=== PATIENT | female | born 1960 | race Two or more races ===

== ENCOUNTER 2024-07-19 13:02 | Inpatient (IN) | payer MEDICARE, OTHER, SELFPAY ==
[2024-07-19] VITALS (9 sets, daily range): BP systolic 120–201; BP diastolic 63–166; PULSE 83–103; RESP 18–91; TEMP 36.1–36.9; O2SAT 93–96; BMI 25.7
--- NOTE | 2024-07-19 13:07 | EKG_ITS ---
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
--- NOTE | 2024-07-19 13:42 | XR_ITS ---
Examination: PA lateral chest 2 views TECHNIQUE: Upright PA lateral chest 2 views Exam date and time: July 19, 2024 1356 hours INDICATIONS: Chest pain beginning 2 days ago, history myocardial infarction FINDINGS: Moderate chronic heart failure pattern Mild to moderate enlargement cardiac contour Prominent vascular congestion with perihilar basilar edema Large bilateral pleural effusions Intact osseous structures IMPRESSION: Moderate chronic heart failure pattern
--- NOTE | 2024-07-19 13:42 | PD.EDRME ---
Rapid Medical Screening Exam RME Arrival date/time: 07/19/24 13:02 64-year-old female with recent cardiac stent placement presents emergency department complaints of bilateral lower extremity swelling and shortness of breath Chief Complaint: Chest Pain Time Seen by Provider: 07/19/24 13:10 Vital signs: Vital Signs Temperature 97.5 F 07/19/24 13:18 Pulse Rate 97 07/19/24 13:18 Respiratory Rate 18 07/19/24 13:18 Blood Pressure 146/73 H 07/19/24 13:18 Pulse Oximetry (%) 93 L 07/19/24 13:18 Oxygen Delivery Method Room Air 07/19/24 13:18
[2024-07-19 14:07] LABS: Basophils # (Auto) 0.1 Thou/mm3 (0.0-0.2); Basophils % (Auto) 1 % (0-2.5); Eosinophils # (Auto) 0.2 Thou/mm3 (0.0-0.5); Eosinophils % (Auto) 2 % (0-10); Hematocrit 32.5 % (36.0-46.0); Hemoglobin 10.2 g/dL (12.0-16.0); Immature Granulocytes % (Auto) 0 % (0-0); Immature Granulocytes Auto 0.03 Thou/mm3 (0.00-0.00); Lymphocytes # (Auto) 1.5 Thou/mm3 (1.0-4.8); Lymphocytes % (Auto) 18 % (10-50); Mean Corpuscular HGB Conc 31.4 g/dl (31.0-37.0); Mean Corpuscular Hemoglobin 26.8 pg (25.0-35.0); Mean Corpuscular Volume 85 fL (80-100); Monocytes # (Auto) 0.6 Thou/mm3 (0.0-0.8); Monocytes % (Auto) 7 % (0-12); Neutrophils # (Auto) 6.1 Thou/mm3 (1.8-7.7); Neutrophils % (Auto) 72 % (37-80); Nucleated Red Blood Cell % 0 /100 WBC (0); Platelet Count 351 Thou/mm3 (140-440); RDW Standard Deviation 43.8 fL (36.4-46.3); Red Blood Count 3.81 Miln/mm3 (4.00-5.20); White Blood Count 8.6 Thou/mm3 (3.6-11.0)
[2024-07-19 14:20] LABS: INR 1.2 (0.9-1.3); Partial Thromboplastin Time 25.1 Seconds (22.0-36.0); Prothrombin Time 12.7 Seconds (9.0-12.2)
[2024-07-19 14:23] LABS: B-Type Natriuretic Peptide 2188 pg/mL (0-100)
[2024-07-19 14:27] LABS: Alanine Aminotransferase 37 U/L (10-49); Albumin, Serum 3.7 gm/dL (3.4-4.8); Albumin/Globulin Ratio 1.2 (1.2-2.2); Alkaline Phosphatase 179 U/L (46-116); Anion Gap 7 (7-16); Aspartate Amino Transferase 28 U/L (0-34); BUN/Creatinine Ratio 28 Ratio (12-20); Bilirubin,Total 0.4 mg/dL (0.3-1.2); Blood Urea Nitrogen 34 mg/dL (9-23); Calcium 9.5 mg/dL (8.3-10.6); Calcium (Corrected) 9.7 mg/dL (8.5-10.1); Carbon Dioxide 25.6 mMol/L (20.0-31.0); Chloride 108 mMol/L (98-107); Creatinine (Component) 1.2 mg/dL (0.6-1.3); Estimated Creatinine Clearance 35.7 mL/min (>60); Glucose 190 mg/dL (74-106); Magnesium 1.8 mg/dL (1.6-2.6); Osmolality,Calculated 293 (275-295); Potassium 4.6 mMol/L (3.4-5.1); Sodium 141 mMol/L (136-145); Total Protein 6.7 gm/dL (5.7-8.2); eGFR 50 See Note
[2024-07-19 14:31] LABS: Troponin I 0.445 ng/mL (0.0-0.045)
--- NOTE | 2024-07-19 15:04 | PD.EDADULT ---
ED General RME/HPI General Chief complaint: Chest Pain Stated complaint: CHEST PRESSURE AND BILAT FEET SWELLING Time Seen by Provider: 07/19/24 13:10 Arrival date/time: 07/19/24 13:02 CC: Chest pain lower extremity swelling HPI patient presents the ER via EMS with a family member states the patient had chest pain this morning lasting for approximately 4 to 5 hours and upon standing is resolution. The patient also has lower foot swelling. Family member presented paperwork that shows the patient had an acute STEMI and was catheterized on July 08, [address] Dennis cardiology in [place]. Currently the patient is chest pain-free family member reminds me the patient has had several strokes also is on blood thinners, and has poor memory. She is answering all of the questions for the patient without asking the patient questions. RME / HPI RME / HPI narrative: 07/19/24 13:02 64-year-old female with recent cardiac stent placement presents emergency department complaints of bilateral lower extremity swelling and shortness of breath Related Data Home Medications ?Medication ?Instructions ?Recorded ?Confirmed aspirin 81 mg chewable tablet 81 mg PO QDAY 07/19/24 07/19/24 atorvastatin 40 mg tablet 40 mg PO QDAY 07/19/24 07/19/24 doxycycline hyclate 100 mg capsule 100 mg PO BID 07/19/24 07/19/24 isosorbide mononitrate 30 mg 30 mg PO QDAY 07/19/24 07/19/24 tablet,extended release 24 hr metoprolol succinate 25 mg 12.5 mg PO QDAY 07/19/24 07/19/24 tablet,extended release 24 hr ticagrelor 90 mg tablet (Brilinta) 90 mg PO BID 07/19/24 07/19/24 Allergies Allergy/AdvReac Type Severity Reaction Status Date / Time No Known Allergies Allergy Verified 07/19/24 13:04 Review of Systems Review of Systems Narrative Review of Systems: GEN: No fever, no chills, no weight loss EYES: No discharge, no visual changes, no pain HEENT: No ear pain, no congestion, no sore throat PULM: No shortness of breath, no cough, no congestion CV: No chest pain, no dyspnea on exertion, no palpitations GI: No nausea, no vomiting, no diarrhea, no pain, no constipation : No frequency, no urgency, no dysuria MUSC/SKEL: No joint pain, no back pain SKIN: No rash PSYCH: No hallucinations, no depression HEME/LYMPH: No easy bleeding or bruising tendencies NEURO: No weakness, no headache Past Medical History Past Medical History CARDIAC: Positive Congestive Heart Failure RESPIRATORY: Negative Chronic Obstructive Pulmonary Disease (COPD) GENITOURINARY: Negative Renal Disease ENDOCRINE: Positive Diabetes Mellitus Type 2; Negative Diabetes Mellitus Type 1 Social History SMOKING STATUS: Never smoker ED Exam Narrative Physical exam: [General: Not in any acute distress Head normocephalic HEENT: Within acceptable limits Neck is supple nontender Chest equal chest rise nontender to palpation Respiratory: Clear to auscultation no wheezes crackles or rubs CV: Rate rhythm is regular no murmurs rubs or clicks Abdomen is soft nontender no masses positive bowel sounds all 4 quadrants Back: No CVA tenderness no spinous process tenderness from cervical spine thoracic and lumbar spine Skin: Intact no petechiae rash induration ulceration or crepitus Extremities: Moving all extremity against resistance cap refill less than 2 seconds neurosensory intact, nonpitting edema in both lower extremities. Neuro: Awake alert oriented x 1, person, Glascow coma 15 no focal deficits] Course Course Course Narrative: Discussed the case with Dr. Britt, cardiology states that patient warrants overnight observation. Patient's case was discussed with Dr. Enmanuel Patino resident for Dr. Bray attending who agrees to accept the patient for admission. Reassessment of the patient at 1700 the patient is experiencing recurrence of chest pain. Quality Measures VTE prophylaxis Orders Category Date Time Status EKG (ED ONLY) *Do not use* NOW Care 07/19/24 13:07 Completed EKG (ED ONLY) *Do not use* NOW Care 07/19/24 17:03 Completed Ballesteros [Urinary Catheter] QS Care 07/19/24 15:13 Active Consult to Cardiology Stat Cons 07/19/24 16:58 Ordered EKG (ED Only) Stat Exams 07/19/24 13:07 Draft EKG (ED Only) Stat Exams 07/19/24 17:03 Draft XR chest 2V Stat Exams 07/19/24 13:42 Completed B-Type Natriuretic Peptide Stat Lab 07/19/24 13:52 Completed CBC Stat Lab 07/19/24 13:52 Completed Comprehensive Metabolic Panel Stat Lab 07/19/24 13:52 Completed Magnesium Stat Lab 07/19/24 13:52 Completed Partial Thromboplastin Time Stat Lab 07/19/24 13:52 Completed Prothrombin Time with INR Stat Lab 07/19/24 13:52 Completed Troponin I Stat Lab 07/19/24 13:52 Completed Troponin I Stat Lab 07/19/24 15:55 Completed Aspirin Chew Med 07/19/24 14:56 Discontinued 324 mg PO X1 ONE Furosemide [Lasix Inj] Med 07/19/24 15:11 Discontinued 20 mg IVP X1 ONE Morphine Inj Med 07/19/24 17:03 Discontinued 4 mg IVP X1 ONE Nitroglycerin [Nitro-dur Patch] Med 07/19/24 17:24 Discontinued 0.4 mg TOP X1 ONE Nitroglycerin [Nitro-dur Patch] Med 07/19/24 17:44 Discontinued 0.4 mg TOP X1 ONE Nitroglycerin [Nitro-dur Patch] Med 07/19/24 17:47 Discontinued 0.4 mg TOP X1 ONE Ondansetron Inj [Zofran Inj] Med 07/19/24 17:03 Discontinued 4 mg IV X1 ONE hydrALAZINE INJ [Apresoline Inj] Med 07/19/24 16:47 Discontinued 10 mg IV X1 ONE Vital Signs Vital signs: Vital Signs Temperature 97.5 F 07/19/24 13:18 Pulse Rate 97 07/19/24 13:18 Respiratory Rate 18 07/19/24 13:18 Blood Pressure 146/73 H 07/19/24 13:18 Pulse Oximetry (%) 93 L 07/19/24 13:18 Oxygen Delivery Method Room Air 07/19/24 13:18 [facility] Patient data External records reviewed:: [facility] previous records and EMS form Clinical information provided by:: patient and EMS Social determinants that could affect healthcare access:: none Patient has the following chronic illnesses:: STEMI with recent stent placement June 2024 How is presenting disease/condition affected by chronic disease/condition?: uneffected by Evaluation data The following diagnostics were reviewed and interpreted by me:: lab results, radiology exam(s) and EKG tracing(s) Lab and/or radiology exams considered but not ordered:: EKG performed at 1317 shows a ventricular rate of 96 TN interval 140 QRS of 104 QTc of 382 this sinus rhythm nonspecific ST segment changes no old EKG for comparison. CBC shows no leukocytosis a mild anemia of 10 and 32 with no thrombocytopenia old lab work to compare to The coags shows an INR of 1.2 CMP shows a sodium 141 potassium of 4.6 chloride of 108 CO2 of 25.6 BUN of 34 creatinine 1.2 and glucose of 190. EKG performed at 1731 shows a ventricular rate of 95 TN interval 132 QRS of 108 QTc of 413 sinus rhythm left axis deviation no significant change from the EKG performed 4 hours ago. Interpretation Summary: I suspect this patient has mild fluid overload but is intravascularly dry. The elevated troponin is most likely downtrending for the stent placement NSTEMI the patient had on July 08. Medications Medications considered but not ordered:: None Medication administrations:: Medication Administration History Acetaminophen (Acetaminophen 325 Mg Tablet) 650 mg PO Q6H PRN PRN Reason: Fever >101.5 Stop: 08/18/24 18:05 Hydrocodone Bitart/Acetaminophen (Hydrocodone/Apap 5/325 Tablet) 1 tab PO Q4HR PRN PRN Reason: PAIN SCALE 4-10(Mod-Sev Stop: 07/24/24 18:05 Last Admin: 07/19/24 19:53 Dose: 1 tab Documented By: EE Albuterol/Ipratropium (Albuterol/Ipratropium (Duoneb) Rt Jessica 3 Ml Nebu) 3 ml INH Q4HR PRN PRN Reason: Wheeze Stop: 08/18/24 18:05 Aspirin (Aspirin Ec 81 Mg Tabec) 81 mg PO QDAY MAXIME Stop: 08/18/24 18:29 Last Admin: 07/19/24 19:00 Dose: Not Given Documented By: CS Non-Admin Reason: PT TOOK DOSE AT HOME THIS AM Atorvastatin Calcium (Atorvastatin Calcium 20 Mg Tablet) 40 mg PO HS MAXIME Stop: 08/18/24 20:59 Dextrose (Dextrose 50%-Water Inj 50 Ml Syringe) 25 ml IV Q15MIN PRN PRN Reason: BG 50-70 responsive npo pt Stop: 08/18/24 18:17 Dextrose (Dextrose 50%-Water Inj 50 Ml Syringe) 50 ml IV Q15MIN PRN PRN Reason: BG <50 OR BG <70 & pt unresponsive Stop: 08/18/24 18:17 Glucagon (Glucagon Inj 1 Mg Vial) 1 mg IM Q15MIN PRN PRN Reason: BG <70, and no IV access Hydralazine HCl (Hydralazine Inj 20 Mg/Ml Vial) 10 mg IV PRN PRN PRN Reason: SBP > 170 Stop: 08/18/24 18:18 Insulin Human Lispro (Insulin Lispro (Admelog) 1 Unit/0.01 Ml Unit) 0 unit SC ACHS [facility]; Protocol Stop: 08/18/24 20:59 Isosorbide Mononitrate (Isosorbide Er Mononitrate 30 Mg Tabcr) 30 mg PO QDAY [facility] Stop: 08/19/24 08:59 Morphine Sulfate (Morphine Sulf Inj 10 Mg/Ml Vial) 2 mg IVP Q4HR PRN; Protocol PRN Reason: PAIN SCALE 7-10 (Severe Stop: 07/24/24 18:05 Ondansetron HCl (Ondansetron Inj 2 Mg/Ml Inj 2 Ml) 4 mg IV Q6H PRN; Protocol PRN Reason: NAUSEA OR VOMITING Stop: 08/18/24 18:05 Pantoprazole Sodium (Pantoprazole 40 Mg Tablet) 40 mg PO QDAY [facility] Stop: 08/18/24 18:14 Last Admin: 07/19/24 19:49 Dose: 40 mg Documented By: FELI Sennosides (Senna Tablet) 1 tab PO QDAY [facility]; Protocol Stop: 08/19/24 08:59 Ticagrelor (Ticagrelor 90 Mg Tablet) 90 mg PO BID [facility] Stop: 08/18/24 20:59 Discontinued Medications Aspirin (Aspirin 81 Mg Chew) 324 mg PO X1 ONE Stop: 07/19/24 14:57 Last Admin: 07/19/24 14:56 Dose: Not Given Documented By: ADRIANA Non-Admin Reason: Cancelled by Provider Furosemide (Furosemide Inj 10 Mg/Ml Vial 2 Ml) 20 mg IVP X1 ONE Stop: 07/19/24 15:12 Last Admin: 07/19/24 16:00 Dose: 20 mg Documented By: ADRIANA Hydralazine HCl (Hydralazine Inj 20 Mg/Ml Vial) 10 mg IV X1 ONE Stop: 07/19/24 16:48 Last Admin: 07/19/24 16:55 Dose: 10 mg Documented By: ADRIANA Magnesium Sulfate (Magnesium Sulfate Ivpb) 2 gm in 50 mls @ 25 mls/hr IV X1 ONE Stop: 07/19/24 20:22 Last Admin: 07/19/24 19:53 Dose: 25 mls/hr Documented By: EE Morphine Sulfate (Morphine Sulf Inj 10 Mg/Ml Vial) 4 mg IVP X1 ONE Stop: 07/19/24 17:04 Last Admin: 07/19/24 17:10 Dose: 4 mg Documented By: CS Nitroglycerin (Nitroglycerin 0.4 Mg/Hr Patch.Td24) 0.4 mg TOP X1 ONE Stop: 07/19/24 17:25 Last Admin: 07/19/24 17:24 Dose: Not Given Documented By: CS Non-Admin Reason: Duplicate Medication on eMAR Nitroglycerin (Nitroglycerin 0.4 Mg/Hr Patch.Td24) 0.4 mg TOP X1 ONE Stop: 07/19/24 17:45 Last Admin: 07/19/24 17:44 Dose: Not Given Documented By: CS Non-Admin Reason: Duplicate Medication on eMAR Nitroglycerin (Nitroglycerin 0.4 Mg/Hr Patch.Td24) 0.4 mg TOP X1 ONE Stop: 07/19/24 17:48 Ondansetron HCl (Ondansetron Inj 2 Mg/Ml Inj 2 Ml) 4 mg IV X1 ONE; Protocol Stop: 07/19/24 17:04 Last Admin: 07/19/24 17:11 Dose: 4 mg Documented By: ADRIANA None Consultations Consultation(s) initiated? (list below): No Diagnosis Differential Diagnosis ED Complaint MDM: ACS MA pneumonia Most likely diagnosis given after review of the tests above:: Chest pain elevated troponin Admission Indicated Admission indicated?: indicated Explain why admission is indicated or not indicated:: Further medical management Admission Request Was there a request for admission?: No Disposition Plan Disposition Plan: Admit Medical Decision Making Differential Diagnosis Differential Diagnosis: ACS MA pneumonia Lab Data 07/19/24 13:52 07/19/24 13:52 Labs: Lab Results 07/19/24 07/19/24 Range/Units 13:52 15:55 WBC 8.6 (3.6-11.0) Thou/mm3 RBC 3.81 L (4.00-5.20) Miln/mm3 Hgb 10.2 L (12.0-16.0) g/dL Hct 32.5 L (36.0-46.0) % MCV 85 (80-100) fL MCH 26.8 (25.0-35.0) pg MCHC 31.4 (31.0-37.0) g/dl RDW Std Deviation 43.8 (36.4-46.3) fL Plt Count 351 (140-440) Thou/mm3 Neut % (Auto) 72 (37-80) % Lymph % (Auto) 18 (10-50) % [place] % (Auto) 7 (0-12) % Eos % (Auto) 2 (0-10) % Baso % (Auto) 1 (0-2.5) % Neut # (Auto) 6.1 (1.8-7.7) Thou/mm3 Lymph # (Auto) 1.5 (1.0-4.8) Thou/mm3 [place] # (Auto) 0.6 (0.0-0.8) Thou/mm3 Eos # (Auto) 0.2 (0.0-0.5) Thou/mm3 Baso # (Auto) 0.1 (0.0-0.2) Thou/mm3 Immature Gran # (Auto) 0.03 H (0.00-0.00) Thou/mm3 Absolute Nucleated RBC 0.00 (0.00-0.00) Thou/mm3 Immature Gran % 0 (0-0) % Nucleated RBC % 0 (0) /100 WBC PT 12.7 H (9.0-12.2) Seconds INR 1.2 (0.9-1.3) APTT 25.1 (22.0-36.0) Seconds Sodium 141 (136-145) mMol/L Potassium 4.6 (3.4-5.1) mMol/L Chloride 108 H (98-107) mMol/L Carbon Dioxide 25.6 (20.0-31.0) mMol/L Anion Gap 7 (7-16) BUN 34 H (9-23) mg/dL Creatinine 1.2 (0.6-1.3) mg/dL Estim Creat Clear Calc 35.7 L (>60) mL/min eGFR 50 L (60 - ) See Note BUN/Creatinine Ratio 28 H (12-20) Ratio Glucose 190 H (74-106) mg/dL Calculated Osmolality 293 (275-295) Calcium 9.5 (8.3-10.6) mg/dL Corrected Calcium 9.7 (8.5-10.1) mg/dL Magnesium 1.8 (1.6-2.6) mg/dL Total Bilirubin 0.4 (0.3-1.2) mg/dL AST 28 (0-34) U/L ALT 37 (10-49) U/L Alkaline Phosphatase 179 H (46-116) U/L Troponin I 0.445 H* 0.420 H* (0.0-0.045) ng/mL B-Natriuretic Peptide 2188 H* (0-100) pg/mL Total Protein 6.7 (5.7-8.2) gm/dL Albumin 3.7 (3.4-4.8) gm/dL Globulin 3.0 (2.3-3.5) gm/dL Albumin/Globulin Ratio 1.2 (1.2-2.2) Discharge Plan Plan Patient Disposition: Other Care w/in Hosp (SDC/RIGO) Patient condition on transfer: Stable Problem List Clinical Impression: Chest pain, Elevated troponin, Dehydration, Edema of both lower legs PA/ARTIFICIAL BREEDING DISTRIBUTOR Supervising Physician PA/ARTIFICIAL BREEDING DISTRIBUTOR Supervising Physician: Tello Santacruz ENP
[2024-07-19] MEDS: FUROSEMIDE INJ 10 MG/ML VIAL 2 ML 20 MG IVP (16:00)
[2024-07-19] MEDS: hydrALAZINE INJ 20 MG/ML VIAL 10 MG IV (16:55)
--- NOTE | 2024-07-19 17:03 | EKG_ITS ---
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
[2024-07-19] MEDS: MORPHINE SULF INJ 10 MG/ML VIAL 4 MG IVP (17:10)
[2024-07-19] MEDS: ONDANSETRON INJ 2 MG/ML INJ 2 ML 4 MG IV (17:11)
--- NOTE | 2024-07-19 18:11 | ECHO_ITS ---
Transthoracic Echo Report Ht (in): 59 Wt (lb): 127 Exam Location: Portable Status: Emergency Vp Security: Lidia Olmedo Indications: Procedure Performed: BP: 117 / 69 HR: 82 Rhythm: Sinus Technical Quality: Fair MEASUREMENTS (Male / Female) Normal Values 2D ECHO LV Diastolic Diameter PLAX 5.0 cm 4.2 - 5.9 / 3.9 - 5.3 cm LV Systolic Diameter PLAX 4.3 cm IVS Diastolic Thickness 0.7 cm 0.6 - 1.0 / 0.6 - 0.9 cm LVPW Diastolic Thickness 0.9 cm 0.6 - 1.0 / 0.6 - 0.9 cm LV Relative Wall Thickness 0.3 LVOT Diameter 1.6 cm LA Volume Index 31.2 cm?/m? 16 - 28 cm?/m? Ascending Aorta Diameter 2.7 cm M-MODE Aortic Root Diameter MM 2.3 cm LA Systolic Diameter MM 4.3 cm LA Ao Ratio MM 1.9 MV E Point Septal Separation 1.7 cm AV Cusp Separation MM 1.8 cm DOPPLER AV Peak Velocity 115.0 cm/s AV Peak Gradient 5.3 mmHg AV Mean Gradient 3.0 mmHg AV Velocity Time Integral 20.8 cm LVOT Peak Velocity 85.7 cm/s LVOT Peak Gradient 2.9 mmHg LVOT Velocity Time Integral 15.0 cm LVOT Cardiac Index 1581.4 cm?/min?m? AV Area Cont Eq vti 1.4 cm? AV Area Cont Eq pk 1.5 cm? MV Peak Velocity 141.0 cm/s MV Peak Gradient 8.0 mmHg MV Mean Velocity 85.2 cm/s MV Mean Gradient 3.0 mmHg MV Area PHT 4.2 cm? MR Peak Velocity 456.5 cm/s MR Peak Gradient 83.4 mmHg Mitral E Point Velocity 119.0 cm/s Mitral A Point Velocity 82.9 cm/s Mitral E to A Ratio 1.4 LV E' Lateral Velocity 4.7 cm/s Mitral E to LV E' Lateral Ratio 25.4 LV E' Septal Velocity 5.0 cm/s Mitral E to LV E' Septal Ratio 23.8 TR Peak Velocity 215.3 cm/s TR Peak Gradient 18.5 mmHg FINDINGS Left Ventricle Normal left ventricular size, wall thickness. Severe systolic dysfunction. Severe global hypokinesis . The ejection fraction is visually estimated at 30-35%. Right Ventricle The right ventricle is normal in size and systolic function. The estimated right ventricular systoli c pressure, 39mmHg.RAP 10. Left Atrium The left atrium is normal by two-dimensional, color flow and Doppler imaging with no structural abnormalities, no thrombus formation present. Right Atrium The right atrium is normal by two-dimensional imaging, color flow and Doppler imaging with no struct ural abnormalities, no thrombus formation present. Atrial Septum The interatrial septum appears normal with no evidence of a shunt. Aorta The aorta is normal by two-dimensional, color flow and Doppler interrogation. Mitral Valve The mitral valve is normal by two-dimensional, color flow and Doppler interrogation. There is modera te mitral valve regurgitation. Aortic Valve The aortic valve is trileaflet and normal by two-dimensional, color flow and Doppler interrogation. There is trace aortic valve regurgitation. Tricuspid Valve The tricuspid valve is normal by two-dimensional, color flow and Doppler interrogation. There is mil d tricuspid valve regurgitation. Pulmonic Valve There is no significant pulmonic valve regurgitation. Vessels The pulmonary artery appears normal. The inferior vena cava pulmonary and hepatic veins appear jayne l. Pericardium The pericardium is normal by two-dimensional imaging. There is no significant pericardial effusion. Other Findings Pleural effusion present. CONCLUSIONS Normal LV size. Severe systolic dysfunction. Severe global hypokinesis. Estimated EF 30-35% Normal RV size and function. Estimated RVSP 39mmHg. Moderate MR. Mild TR. Trace AI. Pleural effusion present. Melinda Britt (Electronically Signed) Final Date: 20 July 2024 11:07
--- NOTE | 2024-07-19 18:25 | ESHP_ITS ---
<Statement entered by Reynaldo Phelps MD - 07/20/24 13:59> This patient 64-year-old female with past medical history of CAD status post recent stents placed in [place] by Dr. Dennis on July 08 presented to the ED with chest pain from last 5 hours and lower extremity swelling with high blood pressure. In the ED, blood pressure was elevated at 200/166. Labs showed hemoglobin at 10.2. Chemistry panel showed BUN 34 and creatinine 1.2. Blood glucose 190. Troponin I down trended to 0.420. BNP 2188. Chest x-ray showed moderate chronic heart failure pattern with large bilateral pleural effusions and prominent vascular congestion. EKG showed sinus rhythm with QTc 416. Patient is currently admitted for ACS workup and hypertensive emergency. Will continue aspirin and Brilinta per cardiology recommendation and keep the patient n.p.o. after midnight for possible cardiac angiogram. Will continue labetalol as needed for high blood pressure. Continue strict RIGO's with fluid restriction. Patient received dose of Lasix in the ED due to 4+ pitting edema up to thighs, JVD and mildly decreased breath sounds. Will order an echo, to evaluate recent heart functions. Will try to get records from [place]. Nitroglycerin as needed for chest pain. All labs and orders were reviewed. I saw and examined the patient, and I agree with current management stated by Dr Manda MD,PGY1. Plan of care was discussed with the attending physician and resident physician. Disclaimer: Despite multiple revisions, due to the dictation software being used, the document bellow may not be free of grammatical errors including phonetic/typographic errors. However, this does not deter from our commitment to providing health care in the patient's best interest in mind. Dr. Mattie MD, PGY 2 Documentation for date of: 07/19/24 HPI History of Present Illness Chief complaint: Chest pain and SOB History of present illness: HPI: Patient was seen with daughter, Courtney at bedside. Patient is a 64-year-old female with a past medical history significant for essential hypertension, NIDDM type II, hyperlipidemia, CKD stage III A, 2 previous strokes on July 08/2024, history of MT, CAD s/p BENNETT on 07/08/2024 and [facility] by behavioral sciences department chair Dr. Dennis. Patient currently does not have a PCP but is scheduled to have a visit to establish care with [facility] on 07/26. Patient presented today with a chief complaint of chest pain and SOB. Patient states that her chest pain started this morning and lasted for approximately 5 hours during which time it was constant. She described it as central, squeezing, 10/10 in severity, no radiation or diaphoresis but associated with palpitations and dizziness. After presentation to the hospital the chest pain subsided but then again resumed now intermittent. Patient endorses a 3 pillow orthopnea and says she feels like she is choking if she tries to lay down flat, also endorses PND and lower extremity swelling progressively worsening over the past 3 days. Patient denies any cough, fever or chills, sick contacts and recent travel. Of note patient daughter states that she had a MT last month as well as 2 strokes and was hospitalized at [facility]. She had a BENNETT placed by Dr. Dennis, behavioral sciences department chair and was told that she has other blocked vessels which would need stents in the future. ED course: BP 206/166, pulse 91, RR 23, temp 98.4 F, SpO2 96% on 2L NC. Labs significant for Hb 10.2, HCT 32.5, BUN 35, CR 1.2, Mg 1.8, Trop 0.445 which down trended to 0.42 and BNP 2188. EKG was significant for sinus rhythm, rate 98, Q waves in inferior leads and no acute ST changes. Chest x-ray was significant for bibasilar pleural effusion as well as bilateral pulmonary edema. In the ED patient received hydralazine 10 Mg IV x 1 , Lasix 20 Mg IV x 1 ,morphine 4 Mg IV x 1 and ondansetron 4 Mg IV x 1. Patient will be admitted to the floors for workup and management of NSTEMI type I versus type II and hypertensive emergency. Cardiology was consulted for NSTEMI. Review of Systems Review of Systems Narrative Review of Systems: GENERAL: Denies fever/chills or diaphoresis. HEENT: Denies headaches or visual changes. Denies discharge. Neuro: Denies unusual weakness or difficulty speaking. CARDIO: Above PULM: As above GI: Denies abdominal pain, N/V/C/D. Reports having BMs. URO: Denies buring/itching/pain/urinary changes. MSK/EXT/SKIN: Denies joint/skeletal/muschle pain, issues/changes in upper or lower extremities, itchiness, or superficial pain. PSYCH: Cooperative, pleasant mood & affect. The rest of the review of systems is otherwise negative. Past Medical History Past Medical History Comments PMH COMMENT: Medication list: ? ASA 81 Mg p.o. daily ? Atorvastatin 40 Mg p.o. at bedtime ? Isosorbide mononitrate 1 tab p.o. daily ? Metoprolol succinate 25 Mg p.o. daily ? Ticagrelor 90 Mg p.o. twice daily Past medical history: ?Essential hypertension ? NIDDM type II ? Hyperlipidemia ? CKD stage III ? History of 2 strokes ? History of MT ? 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 Marital Status: Single with treated Tobacco use: Denies ETHO use: Denies Illicit drug use: Denies Social History Note: Prior to her MT last month she worked and performed all ADLs independently. Patient's daughter states that she uses a walker to ambulate at baseline and needs assistance with ADLs such as bathing and changing her clothes. She has no residual deficits from the stroke apart from intermittent lapses in her memory. Family History: Son?DM Exam Vital Signs Temp Pulse Resp BP Pulse Ox O2 Del Method O2 Flow Rate 98.4 F 91 23 H 201/166 H 96 Nasal Cannula 2 07/19/24 16:40 07/19/24 16:55 07/19/24 16:40 07/19/24 16:55 07/19/24 16:40 07/19/24 16:40 07/19/24 16:40 Narrative Exam Constitutional Alert, oriented x 3 and moderate distress. Elderly female on O2 via NC HEENT Vision grossly intact. Patent nares. Trachea midline Respiratory Chest normal on inspection and decreased air entry B/L in all lung jackson with scattered crackles at the bases Cardiovascular S1 and S2 audible, RRR. No murmurs carotid bruit. JVD not assessed Abdominal Soft, obese and non tender to palpation in all quadrants. BS + Genitourinary No bladder tenderness, no flank pain. Normal to palpation Musculoskeletal Extremities tone within normal limits. 4+ LE edema up to hips B/L with sacral edema. Neurological CN II - XII grossly intact. Extremity motor and sensation grossly intact. Skin Warm, dry and intact. No apparent lesions. Results: Labs 07/20/24 05:38 07/20/24 05:38 Labs: Short CBC 07/19/24 Range/Units 13:52 WBC 8.6 (3.6-11.0) Thou/mm3 Hgb 10.2 L (12.0-16.0) g/dL Hct 32.5 L (36.0-46.0) % Plt Count 351 (140-440) Thou/mm3 BMP 07/19/24 13:52 Sodium 141 Potassium 4.6 Chloride 108 H Carbon Dioxide 25.6 BUN 34 H Creatinine 1.2 Glucose 190 H Calcium 9.5 Cardiac Enzymes 07/19/24 07/19/24 Range/Units 13:52 15:55 Troponin I 0.445 H* 0.420 H* (0.0-0.045) ng/mL Liver Function 07/19/24 Range/Units 13:52 Total Bilirubin 0.4 (0.3-1.2) mg/dL AST 28 (0-34) U/L ALT 37 (10-49) U/L Alkaline Phosphatase 179 H (46-116) U/L Albumin 3.7 (3.4-4.8) gm/dL Quality Measures Quality Measures VTE prophylaxis Advance care planning discussed with:: patient and child Medications Home Medications and Allergies Home Medications ?Medication ?Instructions ?Recorded ?Confirmed ?Type aspirin 81 mg chewable tablet 81 mg PO QDAY 07/19/24 07/19/24 History atorvastatin 40 mg tablet 40 mg PO QDAY 07/19/24 07/19/24 History doxycycline hyclate 100 mg capsule 100 mg PO BID 07/19/24 07/19/24 History isosorbide mononitrate 30 mg 30 mg PO QDAY 07/19/24 07/19/24 History tablet,extended release 24 hr metoprolol succinate 25 mg 12.5 mg PO QDAY 07/19/24 07/19/24 History tablet,extended release 24 hr ticagrelor 90 mg tablet (Brilinta) 90 mg PO BID 07/19/24 07/19/24 History Allergies Allergy/AdvReac Type Severity Reaction Status Date / Time No Known Allergies Allergy Verified 07/19/24 13:04 Visit Medications Acetaminophen (Acetaminophen 325 Mg Tablet) 650 mg PO Q6H PRN PRN Reason: Fever >101.5 Stop: 08/18/24 18:05 Hydrocodone Bitart/Acetaminophen (Hydrocodone/Apap 5/325 Tablet) 1 tab PO Q4HR PRN PRN Reason: PAIN SCALE 4-10(Mod-Sev Stop: 07/24/24 18:05 Albuterol/Ipratropium (Albuterol/Ipratropium (Duoneb) Rt Jessica 3 Ml Nebu) 3 ml INH Q4HR PRN PRN Reason: Wheeze Stop: 08/18/24 18:05 Aspirin (Aspirin Ec 81 Mg Tabec) 81 mg PO QDAY [facility] Stop: 08/18/24 18:29 Atorvastatin Calcium (Atorvastatin Calcium 20 Mg Tablet) 40 mg PO HS [facility] Stop: 08/18/24 20:59 Dextrose (Dextrose 50%-Water Inj 50 Ml Syringe) 25 ml IV Q15MIN PRN PRN Reason: BG 50-70 responsive npo pt Stop: 08/18/24 18:17 Dextrose (Dextrose 50%-Water Inj 50 Ml Syringe) 50 ml IV Q15MIN PRN PRN Reason: BG <50 OR BG <70 & pt unresponsive Stop: 08/18/24 18:17 Glucagon (Glucagon Inj 1 Mg Vial) 1 mg IM Q15MIN PRN PRN Reason: BG <70, and no IV access Hydralazine HCl (Hydralazine Inj 20 Mg/Ml Vial) 10 mg IV PRN PRN PRN Reason: SBP > 170 Stop: 08/18/24 18:18 Magnesium Sulfate (Magnesium Sulfate Ivpb) 2 gm in 50 mls @ 25 mls/hr IV X1 ONE Stop: 07/19/24 20:22 Insulin Human Lispro (Insulin Lispro (Admelog) 1 Unit/0.01 Ml Unit) 0 unit SC [facility]; Protocol Stop: 08/18/24 20:59 Isosorbide Mononitrate (Isosorbide Er Mononitrate 30 Mg Tabcr) 30 mg PO QDAY [facility] Stop: 08/19/24 08:59 Morphine Sulfate (Morphine Sulf Inj 10 Mg/Ml Vial) 2 mg IVP Q4HR PRN PRN Reason: PAIN SCALE 7-10 (Severe Stop: 07/24/24 18:05 Ondansetron HCl (Ondansetron Inj 2 Mg/Ml Inj 2 Ml) 4 mg IV Q6H PRN; Protocol PRN Reason: NAUSEA OR VOMITING Stop: 08/18/24 18:05 Pantoprazole Sodium (Pantoprazole 40 Mg Tablet) 40 mg PO QDAY [facility] Stop: 08/18/24 18:14 Sennosides (Senna Tablet) 1 tab PO QDAY [facility]; Protocol Stop: 08/19/24 08:59 Ticagrelor (Ticagrelor 90 Mg Tablet) 90 mg PO BID [facility] Stop: 08/18/24 20:59 Discontinued Medications Aspirin (Aspirin 81 Mg Chew) 324 mg PO X1 ONE Stop: 07/19/24 14:57 Last Admin: 07/19/24 14:56 Dose: Not Given Furosemide (Furosemide Inj 10 Mg/Ml Vial 2 Ml) 20 mg IVP X1 ONE Stop: 07/19/24 15:12 Last Admin: 07/19/24 16:00 Dose: 20 mg Hydralazine HCl (Hydralazine Inj 20 Mg/Ml Vial) 10 mg IV X1 ONE Stop: 07/19/24 16:48 Last Admin: 07/19/24 16:55 Dose: 10 mg Morphine Sulfate (Morphine Sulf Inj 10 Mg/Ml Vial) 4 mg IVP X1 ONE Stop: 07/19/24 17:04 Last Admin: 07/19/24 17:10 Dose: 4 mg Nitroglycerin (Nitroglycerin 0.4 Mg/Hr Patch.Td24) 0.4 mg TOP X1 ONE Stop: 07/19/24 17:25 Nitroglycerin (Nitroglycerin 0.4 Mg/Hr Patch.Td24) 0.4 mg TOP X1 ONE Stop: 07/19/24 17:45 Nitroglycerin (Nitroglycerin 0.4 Mg/Hr Patch.Td24) 0.4 mg TOP X1 ONE Stop: 07/19/24 17:48 Ondansetron HCl (Ondansetron Inj 2 Mg/Ml Inj 2 Ml) 4 mg IV X1 ONE; Protocol Stop: 07/19/24 17:04 Last Admin: 07/19/24 17:11 Dose: 4 mg Assessment & Plan Assessment .Patient was seen with daughter Courtney at bedside. Patient is a 64-year-old female with a past medical history significant for essential hypertension, NIDDM type II, hyperlipidemia, CKD stage III A, 2 previous strokes on July 08/2024, history of MT, CAD s/p BENNETT on 07/08/2024 and [facility] by behavioral sciences department chair Dr. Dennis. Patient currently does not have a PCP but is scheduled to have a visit to establish care with [facility] on 07/26. Patient presented today with a chief complaint of chest pain and SOB.Patient will be admitted to the floors for workup and management of NSTEMI type I versus type II and hypertensive emergency. Cardiology was consulted for NSTEMI. 1. ACS 2. NSTEMI type I versus type II Patient presented with a history of chest pain, central, squeezing, 10/10 in severity, no radiation or diaphoresis but associated with palpitations and dizziness. After presentation to the hospital the chest pain subsided but then again resumed now intermittent. EKG was significant for sinus rhythm, rate 98, Q waves in inferior leads and no acute ST changes. Chest x-ray was significant for bibasilar pleural effusion as well as bilateral pulmonary edema. Trop 0.445 which down trended to 0.42 and BNP 2188 K4.6 and Mg 1.8 Etiology possibly type II in setting of hypertensive emergency. Patient states that she has been compliant with her aspirin and Brilinta so likelihood of stent thrombosis and type I NSTEMI less likely. Plan: ? Keep n.p.o. from midnight for possible angiogram tomorrow ? Repeat troponin in a.m. ? Repeat EKG a.m. ?Patient repleted with mag sulfate 2 g IV x 1. Will maintain K >4 and Mg >2 at all times to prevent any arrhythmias. ? Continue home medication ASA 81 Mg p.o. daily and Brilinta 90 Mg p.o. twice daily ? Dr. Britt, cardiology consulted. Appreciate recommendations 3. Hypertensive emergency On admission patient's BP 201/166 and she received hydralazine 10 Mg IV x 1 and Lasix 20 Mg IV x 1 after which BP improved to 171/98. Patient's ongoing chest pain, NSTEMI and troponinemia signs of end organ damage which would indicate hypertensive emergency and not urgency. Plan: ? Continue to monitor BP ? Hydralazine 10 Mg IV as needed if SBP >170 4. Acute respiratory failure with hypoxia Secondary to 5.? New onset congestive heart failure Patient presented with a history of chest pain, central, squeezing, 10/10 in severity, no radiation or diaphoresis but associated with palpitations and dizziness. After presentation to the hospital the chest pain subsided but then again resumed now intermittent. On exam patient had decreased air entry throughout all lung jackson B/L with scattered crackles at the bases. She also had 4+ lower extremity edema up to hips B/L with sacral edema. EKG was significant for sinus rhythm, rate 98, Q waves in inferior leads and no acute ST changes. Chest x-ray was significant for bibasilar pleural effusion as well as bilateral pulmonary edema. Trop 0.445 which down trended to 0.42 and BNP 2188 NYHA class C stage IV No recent echo on file and not on any diuretics at home Plan: ? Strict input output charting ? 1500 cc fluid restriction per day ? 2 g sodium restricted diet ? Daily weights ? Transthoracic echocardiogram ordered to assess for wall motion abnormalities, valvular defects and EF. ? Beta-blockers on hold for now as they are contraindicated in acute decompensated heart failure exacerbation. ? Diuretics on hold for now pending echocardiogram and cardiology consult. ?Cardiology, Dr. Britt consulted. Appreciate recommendations 6. CAD s/p BENNETT 06/07/2024 7. Hyperlipidemia 8. History of MT 06/07/2024 Patient had MT 06/07/2024 and received PCI with BENNETT placement at [facility] by Dr. Dennis. Patient's home medication aspirin 81 Mg p.o. daily, Brilinta 90 Mg p.o. twice daily and atorvastatin 40 Mg p.o. at bedtime. Plan: ? Resume home medication ? Aspirin 81 Mg p.o. daily ? Brilinta 90 Mg p.o. twice daily ? Atorvastatin 40 Mg p.o. at bedtime 9. Essential hypertension On admission BP 201/66. Currently BP 171/98 Home medication isosorbide mononitrate 30 Mg p.o. daily, metoprolol succinate 25 Mg p.o. daily Plan: ? Resume home medication isosorbide mononitrate 30 Mg p.o. daily ? Beta-astrid on hold for nausea contraindicated in acute decompensated heart failure with exacerbation. 10. [id number] diabetes mellitus type 2 Patient does not appear to be on any home medication and no recent HbA1c seen on file Plan: ? HbA1c ordered ? Insulin sliding scale to cover for any blood glucose spikes 11. CKD stage IIIb Patient reports that she has a history of kidney disease but not sure of her baseline kidney function. On admission her CR was 1.2 Plan: ? Avoid nephrotoxic agent ? Renally dose medication 12. Normocytic anemia No previous labs available for comparison. On admission Hb 10.2. Etiology: Iron deficiency anemia, blood loss, peptic ulcer disease, anemia of chronic disease secondary to chronic kidney disease, lead poisoning. Plan: ? Will consider ordering full anemia workup once workup for possible new onset CHF and NSTEMI completed. Plan of care discussed with Attending Dr. Bray and PGY2 Dr. Mattie Bruno MD PGY 1 Attending Provider Attestation/Addendum I have discussed and was present for the essential components of the history, physical examination, diagnosis, and treatment plan with the resident. I agree with the patient's care as documented by the resident and amended herein by me. Koby Bray, DO. Although this document has been carefully reviewed, there may still be some phonetic and other typographical errors. These errors are purely grammatical due to imperfections in the software program and should not be construed in any way to compromise the substance of the patient's medical care during this visit.
[2024-07-19] MEDS: PANTOPRAZOLE 40 MG TABLET PO (19:49)
[2024-07-19] MEDS: Magnesium Sulfate 2 GM Ivpb 2 GM/50 ML BAG IV (19:53)
[2024-07-19] MEDS: HYDROcodone/APAP 5/325 TABLET 1 TAB PO (19:53)
--- NOTE | 2024-07-19 20:03 | PC.NURSE ---
ASSUME CARE OF PT AT THIS TIME. PT TO ER WITH C/O CHEST PAIN, PT CURRENTLY STATES SHE IS NOT HAVING ANY CP, PT APPEARS TO BE SOB TACHYPENIC RR24. PT SPEAKING APPROX 4 WORDS SENTENCES. PT STATES SHE FEEL MOST COMFORTABLE SITTING UP SOB IS RELIEVED. PT IS CURRENTLY ON 2L o2 satting 94%. PT A/OX3 GCS 15. HELENE LE +2 PITTING EDEMS IS NOTED ON EXAM. PT UPDATED ON PLAN OF CARE. CALL LIGHT WITHIN REACH. PT ON CARDIAC MONITORING. BED AT LOWEST POSITION. PT CARE ONGOING AT THIS TIME.
--- NOTE | 2024-07-19 21:32 | PC.NURSE ---
report called to yumiko doran, all questions answered.
[2024-07-19] MEDS: ATORVASTATIN CALCIUM 20 MG TABLET 40 MG PO (22:26)
[2024-07-19] MEDS: INSULIN LISPRO (AdmeLOG) 1 UNIT/0.01 ML UNIT SC (22:26)
[2024-07-19] MEDS: TICAGRELOR 90 MG TABLET PO (23:32)
[2024-07-20] VITALS (11 sets, daily range): BP systolic 112–136; BP diastolic 65–83; PULSE 71–98; RESP 19–97; TEMP 36.1–36.4; O2SAT 93–98; BMI 24.6
--- NOTE | 2024-07-20 06:00 | EKG_ITS ---
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
[2024-07-20 06:20] LABS: Basophils # (Auto) 0.1 Thou/mm3 (0.0-0.2); Basophils % (Auto) 1 % (0-2.5); Eosinophils # (Auto) 0.3 Thou/mm3 (0.0-0.5); Eosinophils % (Auto) 4 % (0-10); Hematocrit 30.3 % (36.0-46.0); Hemoglobin 9.5 g/dL (12.0-16.0); Immature Granulocytes % (Auto) 0 % (0-0); Immature Granulocytes Auto 0.02 Thou/mm3 (0.00-0.00); Lymphocytes # (Auto) 1.7 Thou/mm3 (1.0-4.8); Lymphocytes % (Auto) 21 % (10-50); Mean Corpuscular HGB Conc 31.4 g/dl (31.0-37.0); Mean Corpuscular Hemoglobin 26.7 pg (25.0-35.0); Mean Corpuscular Volume 85 fL (80-100); Monocytes # (Auto) 0.8 Thou/mm3 (0.0-0.8); Monocytes % (Auto) 10 % (0-12); Neutrophils # (Auto) 5.2 Thou/mm3 (1.8-7.7); Neutrophils % (Auto) 65 % (37-80); Nucleated Red Blood Cell % 0 /100 WBC (0); Platelet Count 303 Thou/mm3 (140-440); RDW Standard Deviation 43.7 fL (36.4-46.3); Red Blood Count 3.56 Miln/mm3 (4.00-5.20)
[2024-07-20 06:50] LABS: INR 1.1 (0.9-1.3); Partial Thromboplastin Time 23.7 Seconds (22.0-36.0); Prothrombin Time 12.4 Seconds (9.0-12.2)
[2024-07-20 06:52] LABS: Glucose Estimated Average 192 mg/dL (80-131); Hemoglobin A1C 8.3 % Hgb (4.8-6.0)
[2024-07-20 07:03] LABS: Alanine Aminotransferase 33 U/L (10-49); Albumin, Serum 3.4 gm/dL (3.4-4.8); Albumin/Globulin Ratio 1.2 (1.2-2.2); Alkaline Phosphatase 162 U/L (46-116); Anion Gap 8 (7-16); Aspartate Amino Transferase 23 U/L (0-34); BUN/Creatinine Ratio 27 Ratio (12-20); Bilirubin,Total 0.4 mg/dL (0.3-1.2); Blood Urea Nitrogen 32 mg/dL (9-23); Calcium 9.1 mg/dL (8.3-10.6); Calcium (Corrected) 9.6 mg/dL (8.5-10.1); Carbon Dioxide 23.3 mMol/L (20.0-31.0); Cardiac Risk Estimate 2.4 RATIO (3.7-5.6); Chloride 109 mMol/L (98-107); Cholesterol 89 mg/dL (132-200); Creatinine (Component) 1.2 mg/dL (0.6-1.3); Globulin 2.8 gm/dL (2.3-3.5); Glucose 104 mg/dL (74-106); HDL Cholesterol 37 mg/dL (40-60); LDL Cholesterol,Calculated 39 mg/dL (0-130); Magnesium 2.3 mg/dL (1.6-2.6); Osmolality,Calculated 286 (275-295); Sodium 140 mMol/L (136-145); Thyroid Stimulating Hormone 6.58 uIU/mL (0.55-4.78); Total Protein 6.2 gm/dL (5.7-8.2); Triglycerides 66 mg/dL (30-150); eGFR 50 See Note
[2024-07-20 07:08] LABS: Troponin I 0.408 ng/mL (0.0-0.045)
--- NOTE | 2024-07-20 08:27 | ESPR_ITS ---
<Statement entered by Reynaldo Phelps MD - 07/20/24 15:50> Patient was seen and examined at the bedside. Patient was given p.o. Lasix 20 mg and an additional IV Lasix 20 mg x 1. Echocardiogram showed EF 30%. Cardiology did not wanted to proceed with coronary angiogram at this point and recommended continuing aspirin and Brilinta. Blood pressure has been stable since morning. Will likely continue with current management. Troponin I downtrended. Patient does have bilateral pleural effusion on chest x-ray and still continues to have lower extremity edema. We ordered PT evaluation. A1c 8.3. All labs and orders were reviewed. I saw and examined the patient, and I agree with current management stated by Dr Manda MD,PGY1. Plan of care was discussed with the attending physician and resident physician. Disclaimer: Despite multiple revisions, due to the dictation software being used, the document bellow may not be free of grammatical errors including phonetic/typographic errors. However, this does not deter from our commitment to providing health care in the patient's best interest in mind. Dr. Mattie MD, PGY 2 Documentation for date of: 07/20/24 Subjective Subjective Interval history: Patient was seen and examined at bedside this AM. No acute exents overnight. Patient tolerating diet, adequate urine output and mentation is at baseline. Patient endorses resolution of her chest pain and only complains of mild SOB on exertion this a.m. Patient had a fluid balance of -250 cc in the past 24 hours Currently not on IV diuresis. Will start patient on Lasix 20 Mg p.o. daily Troponin down trended to 0.408 from 0.445 TSH 6.58 and HbA1c 8.3% K4 and Mg 2.3. Repeat EKG this a.m. showed sinus rhythm, rate 90 with Q waves in inferior leads. No acute ST changes Overnight from telemetry review patient rate between 70s?80s with occasional PVCs. Transthoracic echogram completed on 07/19/2024 findings include: Normal LV size. Severe systolic dysfunction. Severe global hypokinesis. Estimated EF 30-35% Normal RV size and function. Estimated RVSP 39mmHg. Moderate MR. Mild TR. Trace AI. Pleural effusion present. Informatics Scientist, Dr. Britt recommended no need for angiogram today as patient chest pain has resolved and she had a recent stent. He thinks his near chest pain is likely due to medication noncompliance. With regards to the echo findings he recommended to start patient on Lasix 20 Mg p.o. daily. Exam Vital Signs Temp Pulse Resp BP Pulse Ox O2 Del Method O2 Flow Rate 97.3 F 90 22 H 122/74 93 L Nasal Cannula 2 07/20/24 08:00 07/20/24 08:00 07/20/24 08:00 07/20/24 08:00 07/20/24 08:00 07/20/24 04:00 07/20/24 08:00 Narrative Exam Constitutional Alert, oriented x 3 and moderate distress. Elderly female on O2 via NC HEENT Vision grossly intact. Patent nares. Trachea midline Respiratory Chest normal on inspection and decreased air entry B/L in all lung jackson with scattered crackles at the bases Cardiovascular S1 and S2 audible, RRR. No murmurs carotid bruit. JVD not assessed Abdominal Soft, obese and non tender to palpation in all quadrants. BS + Genitourinary No bladder tenderness, no flank pain. Normal to palpation Musculoskeletal Extremities tone within normal limits. 3+ LE edema up to hips B/L with sacral edema. Neurological CN II - XII grossly intact. Extremity motor and sensation grossly intact. Skin Warm, dry and intact. No apparent lesions. Objective Labs 07/20/24 05:38 07/20/24 05:38 Labs: Laboratory Results - last 24 hr 07/19/24 07/19/24 07/20/24 13:52 15:55 05:38 WBC 8.6 8.0 RBC 3.81 L 3.56 L Hgb 10.2 L 9.5 L Hct 32.5 L 30.3 L MCV 85 85 MCH 26.8 26.7 MCHC 31.4 31.4 RDW Std Deviation 43.8 43.7 Plt Count 351 303 D Neut % (Auto) 72 65 Lymph % (Auto) 18 21 Weber % (Auto) 7 10 Eos % (Auto) 2 4 Baso % (Auto) 1 1 Neut # (Auto) 6.1 5.2 Lymph # (Auto) 1.5 1.7 Weber # (Auto) 0.6 0.8 Eos # (Auto) 0.2 0.3 Baso # (Auto) 0.1 0.1 Immature Gran # (Auto) 0.03 H 0.02 H Absolute Nucleated RBC 0.00 0.00 Immature Gran % 0 0 Nucleated RBC % 0 0 PT 12.7 H 12.4 H INR 1.2 1.1 APTT 25.1 23.7 Sodium 141 140 Potassium 4.6 4.0 D Chloride 108 H 109 H Carbon Dioxide 25.6 23.3 Anion Gap 7 8 BUN 34 H 32 H Creatinine 1.2 1.2 Estim Creat Clear Calc 35.7 L 35.0 L eGFR 50 L 50 L BUN/Creatinine Ratio 28 H 27 H Glucose [address] Glu mg/dL 192 H Hemoglobin A1c 8.3 H Calculated Osmolality 293 286 Calcium 9.5 9.1 Corrected Calcium 9.7 9.6 Phosphorus 4.0 Magnesium 1.8 2.3 Total Bilirubin 0.4 0.4 AST 28 23 ALT 37 33 Alkaline Phosphatase 179 H 162 H Troponin I 0.445 H* 0.420 H* 0.408 H* B-Natriuretic Peptide 2188 H* Total Protein 6.7 6.2 Albumin 3.7 3.4 Globulin 3.0 2.8 Albumin/Globulin Ratio 1.2 1.2 Triglycerides 66 Cholesterol 89 L LDL Cholesterol, Calc 39 HDL Cholesterol 37 L Cholesterol/HDL Ratio 2.4 L TSH 6.58 H Quality Measures Quality Measures VTE prophylaxis Advance care planning discussed with:: patient Assessment & Plan Assessment Current Active Medications: Generic Name Dose Route Start Last Admin Trade Name Freq PRN Reason Stop Dose Admin Acetaminophen 650 mg 07/19/24 18:06 Acetaminophen 325 Mg Tablet PO 08/18/24 18:05 Q6H PRN Fever >101.5 Hydrocodone Bitart/Acetaminophen 1 tab 07/19/24 18:06 07/19/24 19:53 Hydrocodone/Apap 5/325 Tablet PO 07/24/24 18:05 1 tab Q4HR PRN Administration PAIN SCALE 4-10(Mod-Sev Albuterol/Ipratropium 3 ml 07/19/24 18:06 Albuterol/Ipratropium (Duoneb) Rt Jessica 3 Ml Nebu INH 08/18/24 18:05 Q4HR PRN Wheeze Aspirin 81 mg 07/19/24 18:30 07/19/24 19:00 Aspirin Ec 81 Mg Tabec PO 08/18/24 18:29 Not Given QDAY MAXIME Atorvastatin Calcium 40 mg 07/19/24 21:00 07/19/24 22:26 Atorvastatin Calcium 20 Mg Tablet PO 08/18/24 20:59 40 mg HS MAXIME Administration Dextrose 25 ml 07/19/24 18:18 Dextrose 50%-Water Inj 50 Ml Syringe IV 08/18/24 18:17 Q15MIN PRN BG 50-70 responsive npo pt Dextrose 50 ml 07/19/24 18:18 Dextrose 50%-Water Inj 50 Ml Syringe IV 08/18/24 18:17 Q15MIN PRN BG <50 OR BG <70 & pt unresponsive Glucagon 1 mg 07/19/24 18:18 Glucagon Inj 1 Mg Vial IM Q15MIN PRN BG <70, and no IV access Hydralazine HCl 10 mg 07/19/24 18:19 Hydralazine Inj 20 Mg/Ml Vial IV 08/18/24 18:18 PRN PRN SBP > 170 Insulin Human Lispro 0 unit 07/19/24 21:00 07/19/24 22:26 Insulin Lispro (Admelog) 1 Unit/0.01 Ml Unit SC 08/18/24 20:59 2 unit ACHS MAXIME Administration Protocol Isosorbide Mononitrate 30 mg 07/20/24 09:00 Isosorbide Er Mononitrate 30 Mg Tabcr PO 08/19/24 08:59 QDAY MAXIME Morphine Sulfate 2 mg 07/19/24 18:06 Morphine Sulf Inj 10 Mg/Ml Vial IVP 07/24/24 18:05 Q4HR PRN PAIN SCALE 7-10 (Severe Protocol Ondansetron HCl 4 mg 07/19/24 18:06 Ondansetron Inj 2 Mg/Ml Inj 2 Ml IV 08/18/24 18:05 Q6H PRN NAUSEA OR VOMITING Protocol Pantoprazole Sodium 40 mg 07/19/24 18:15 07/19/24 19:49 Pantoprazole 40 Mg Tablet PO 08/18/24 18:14 40 mg QDAY MAXIME Administration Sennosides 1 tab 07/20/24 09:00 Senna Tablet PO 08/19/24 08:59 QDAY [facility] Protocol Ticagrelor 90 mg 07/19/24 21:00 07/19/24 23:32 Ticagrelor 90 Mg Tablet PO 08/18/24 20:59 90 mg BID MAXIME Administration Plan .Patient was seen with daughterCourtney at bedside. Patient is a 64-year-old female with a past medical history significant for essential hypertension, NIDDM type II, hyperlipidemia, CKD stage III A, 2 previous strokes on July 08/2024, history of CO, CAD s/p BENNETT on 07/08/2024 and [facility] by marine engineer cpvec Dr. Dennis. Patient currently does not have a PCP but is scheduled to have a visit to establish care with [facility] on 07/26. Patient presented today with a chief complaint of chest pain and SOB.Patient will be admitted to the floors for workup and management of NSTEMI type I versus type II and hypertensive emergency. Cardiology was consulted for NSTEMI. 1. Acute respiratory failure with hypoxia Secondary to 2. New onset decompensated severe systolic congestive heart failure with reduced ejection fraction exacerbation [30-35%] Patient presented with a history of chest pain, central, squeezing, 10/10 in severity, no radiation or diaphoresis but associated with palpitations and dizziness. After presentation to the hospital the chest pain subsided but then again resumed now intermittent. On exam patient had decreased air entry throughout all lung jackson B/L with scattered crackles at the bases. She also had 4+ lower extremity edema up to hips B/L with sacral edema. NYHA class C stage IV EKG was significant for sinus rhythm, rate 98, Q waves in inferior leads and no acute ST changes. Chest x-ray was significant for bibasilar pleural effusion as well as bilateral pulmonary edema. Repeat EKG this a.m. showed sinus rhythm, rate 90 with Q waves in inferior leads. No acute ST changes Overnight from telemetry review patient rate between 70s?80s with occasional PVCs. Transthoracic echogram completed on 07/19/2024 findings include: Normal LV size. Severe systolic dysfunction. Severe global hypokinesis. Estimated EF 30-35% Normal RV size and function. Estimated RVSP 39mmHg. Moderate MR. Mild TR. Trace AI. Pleural effusion present. Informatics Scientist, Dr. Britt recommended no need for angiogram today as patient chest pain has resolved and she had a recent stent. He thinks his near chest pain is likely due to medication noncompliance. With regards to the echo findings he recommended to start patient on Lasix 20 Mg p.o. daily. Patient had a fluid balance of -250 cc in the past 24 hours Plan: ? Strict input output charting ? 1500 cc fluid restriction per day 3 ? 2 g sodium restricted diet ? Daily weights ? Lasix 20 Mg p.o. daily ? At some point patient will need to be started on spironolactone, beta-astrid and Entresto as part of GDMT for congestive heart failure. ? Beta-blockers on hold for now as they are contraindicated in acute decompensated heart failure exacerbation. ? Cardiology, Dr. Britt consulted. Appreciate recommendations 3. ACS?resolved 4. NSTEMI likely type II Patient presented with a history of chest pain, central, squeezing, 10/10 in severity, no radiation or diaphoresis but associated with palpitations and dizziness. After presentation to the hospital the chest pain subsided but then again resumed now intermittent. EKG was significant for sinus rhythm, rate 98, Q waves in inferior leads and no acute ST changes. Chest x-ray was significant for bibasilar pleural effusion as well as bilateral pulmonary edema. Troponin down trended to 0.408 from 0.445 TSH 6.58 and HbA1c 8.3% K4 and Mg 2.3. Etiology possibly type II in setting of hypertensive emergency. Patient states that she has been compliant with her aspirin and Brilinta so likelihood of stent thrombosis and type I NSTEMI less likely. Patient endorses resolution of her chest pain and only complains of mild SOB on exertion this a.m. Plan: ? Continue home medication ASA 81 Mg p.o. daily and Brilinta 90 Mg p.o. twice daily ? Dr. Britt, cardiology consulted. Appreciate recommendations 5. Hypertensive emergency?resolved On admission patient's BP 201/166 and she received hydralazine 10 Mg IV x 1 and Lasix 20 Mg IV x 1 after which BP improved to 171/98. Patient's ongoing chest pain, NSTEMI and troponinemia signs of end organ damage which would indicate hypertensive emergency and not urgency. Patient endorses resolution of her chest pain and only complains of mild SOB on exertion this a.m. Currently BP 122/74 Plan: ? Continue to monitor BP ? Hydralazine 10 Mg IV as needed if SBP >170 6. CAD s/p BENNETT 06/07/2024 7. Hyperlipidemia 8. History of CO 06/07/2024 Patient had CO 06/07/2024 and received PCI with BENNETT placement at [facility] by Dr. Dennis. Patient's home medication aspirin 81 Mg p.o. daily, Brilinta 90 Mg p.o. twice daily and atorvastatin 40 Mg p.o. at bedtime. Plan: ? Continue home medication ? Aspirin 81 Mg p.o. daily ? Brilinta 90 Mg p.o. twice daily ? Atorvastatin 40 Mg p.o. at bedtime 9. Essential hypertension On admission BP 201/66. Currently BP 117/69 Home medication isosorbide mononitrate 30 Mg p.o. daily, metoprolol succinate 25 Mg p.o. daily Plan: ? Resume home medication isosorbide mononitrate 30 Mg p.o. daily ? Beta-astrid on hold for nausea contraindicated in acute decompensated heart failure with exacerbation. 10. Qla-lsnifta-auvhvaxco diabetes mellitus type 2 Patient does not appear to be on any home medication and no recent HbA1c seen on file HbA1c on this admission 8.3% Plan: ? Insulin sliding scale to cover for any blood glucose spikes 11. CKD stage IIIb Patient reports that she has a history of kidney disease but not sure of her baseline kidney function. On admission her CR was 1.2, currently unchanged Plan: ? Avoid nephrotoxic agent ? Renally dose medication 12. Normocytic anemia No previous labs available for comparison. On admission Hb 10.2 down trended to 9.5 Etiology: Iron deficiency anemia, blood loss, peptic ulcer disease, anemia of chronic disease secondary to chronic kidney disease, lead poisoning. Plan: ? Will consider ordering full anemia workup once workup for possible new onset CHF and NSTEMI completed. Health maintenance: Disposition: Diuresis for CHF exacerbation. Diet: Cardiac Lines: pIVs GI Prophylaxis: Protonix Thrombo Prophylaxis: Aspirin and ticagrelor Code status: FULL CODE Plan of care discussed with Attending Dr. Bray and PGY2 Dr. Mattie Bruno MD PGY 1 Attending Provider Attestation/Addendum I have discussed and was present for the essential components of the history, physical examination, diagnosis, and treatment plan with the resident. I agree with the patient's care as documented by the resident and amended herein by me. Koby Bray DO. Patient seen and evaluated this AM. In Short, patient is a 64-year-old female with significant past medical history of CO in May 2024, CAD status post drug-eluting stent on 06/07/2024, hypertension, type 2 diabetes, HLD, CKD 3, previous CVAs who presented to [facility] on 07/19 for ACS rule out secondary to persistent midsternal, nonradiating chest pain. Of note, patient also suspected to be noncompliant with medications. Interval Hx: 07/20: No acute events overnight, vital signs stable, patient afebrile, significant labs include slightly down trended to hemoglobin at 9.5, BMP unremarkable, LDL 139, TSH 6.5, T4 pending. Echocardiogram on 07/19 demonstrated normal LV size, severe systolic dysfunction, severe global hypokinesis with an estimated EF of 30 to 35%, normal RV size and function, estimated RVSP at 39 mmHg, moderate MR, mild TR and trace AI with a pleural effusion present SIGNIFICANT PROBLEM LIST: #NSTEMI, possible type I considering midsternal chest pain, elevated troponins on arrival #New onset CHF, EF 30 to 35% with acute decompensation #CAD status post BENNETT 06/07 #History of CO 06/07/2024 #History of hypertension #?Medication non-compliance PLAN: Cardiology consulted, appreciate recommendations, strict I's and O's, fluid restrict, cardiac diet, daily weights, will start Lasix 20 mg p.o. daily, will start GDMT as the patient can tolerate, T4 ordered however elevated TSH acceptable for her age, will also continue aspirin 81 mg daily and Brilinta 90 mg p.o. twice daily as well as atorvastatin 40 mg p.o. at bedtime. Will continue to monitor closely MEDICATIONS: Aspirin 81 mg daily Atorvastatin 40 mg at bedtime Lasix 20 mg daily Isosorbide mononitrate 30 mg daily As needed morphine Protonix 40 mg daily Brilinta 90 mg p.o. twice daily Although this document has been carefully reviewed, there may still be some phonetic and other typographical errors. These errors are purely grammatical due to imperfections in the software program and should not be construed in any way to compromise the substance of the patient's medical care during this visit.
--- NOTE | 2024-07-20 09:06 | PD.IMCONS ---
HPI Data of Consult Requesting Physician: Derek Bray DO Primary Care Provider: Physician No Primary/Family Consult Narrative History of present illness: This is a 64-year-old female with past medical history of CAD status post recent stents placed in [place] pt seen in the ER with chest pain troponin .4 ; Rpt troponin unchanged EKG unremarkable pt admitted ; pt seen today ; currently she denies chest pain ; pt appears confused echo pending cc:: cc: Derek Bray DO Meds Home Medications and Allergies Home Medications ?Medication ?Instructions ?Recorded ?Confirmed ?Type aspirin 81 mg chewable tablet 81 mg PO QDAY 07/19/24 07/19/24 History atorvastatin 40 mg tablet 40 mg PO QDAY 07/19/24 07/19/24 History doxycycline hyclate 100 mg capsule 100 mg PO BID 07/19/24 07/19/24 History isosorbide mononitrate 30 mg 30 mg PO QDAY 07/19/24 07/19/24 History tablet,extended release 24 hr metoprolol succinate 25 mg 12.5 mg PO QDAY 07/19/24 07/19/24 History tablet,extended release 24 hr ticagrelor 90 mg tablet (Brilinta) 90 mg PO BID 07/19/24 07/19/24 History Allergies Allergy/AdvReac Type Severity Reaction Status Date / Time No Known Allergies Allergy Verified 07/19/24 13:04 Exam Vital Signs Temp Pulse Resp BP Pulse Ox O2 Del Method O2 Flow Rate 97.3 F 90 22 H 122/74 97 Nasal Cannula 2 07/20/24 08:00 07/20/24 08:41 07/20/24 08:41 07/20/24 08:00 07/20/24 08:41 07/20/24 04:00 07/20/24 08:41 Routine HEENT Exam Head: Present normocephalic and atraumatic Eye: Present EOMI and PERRL ENT: Present mucous membranes moist Routine Neck Exam Neck: Present supple and trachea midline Routine Respiratory Exam Respiratory: Present chest non-tender, lungs clear, normal breath sounds and no resp distress Routine Cardiovascular Exam Cardiovascular: Present RRR Routine Abdominal Exam Abdominal: Present soft and normoactive bowel sounds Routine Extremities Exam Extremities: Present full ROM Routine Skin Exam Skin: Present intact, dry and warm Routine Neurological Exam Neurological: Present alert, oriented X3 and CN II-XII intact Routine Psychiatric Exam Psychiatric: Present normal affect and normal thought process Results Labs 07/20/24 05:38 07/20/24 05:38 Labs: Short CBC 07/19/24 07/20/24 Range/Units 13:52 05:38 WBC 8.6 8.0 (3.6-11.0) Thou/mm3 Hgb 10.2 L 9.5 L (12.0-16.0) g/dL Hct 32.5 L 30.3 L (36.0-46.0) % Plt Count 351 303 D (140-440) Thou/mm3 BMP 07/19/24 07/20/24 13:52 05:38 Sodium 141 140 Potassium 4.6 4.0 D Chloride 108 H 109 H Carbon Dioxide 25.6 23.3 BUN 34 H 32 H Creatinine 1.2 1.2 Glucose 190 H 104 D Calcium 9.5 9.1 Cardiac Enzymes 07/19/24 07/19/24 07/20/24 Range/Units 13:52 15:55 05:38 Troponin I 0.445 H* 0.420 H* 0.408 H* (0.0-0.045) ng/mL Liver Function 07/19/24 07/20/24 Range/Units 13:52 05:38 Total Bilirubin 0.4 0.4 (0.3-1.2) mg/dL AST 28 23 (0-34) U/L ALT 37 33 (10-49) U/L Alkaline Phosphatase 179 H 162 H (46-116) U/L Albumin 3.7 3.4 (3.4-4.8) gm/dL Assessment and Plan Assessment and plan (1) Edema of both lower legs: Status: Acute (2) Dehydration: Status: Acute (3) Chest pain: Status: Acute (4) Elevated troponin: Status: Acute (5) CAD (coronary artery disease): Status: Acute (6) Coronary angioplasty status: Status: Acute Additional Assessment & Plan Additional Plan: continue dual antiplatelet agent / lipitor obtain echo medical management to continue
--- NOTE | 2024-07-20 09:45 | PC.SS ---
Patient Juana Brewer is a 64 Year old female admitted for NSTEMI, New onset CHF. SS met with patient at bedside to complete initial assessment. Patient reports she lives at home with her daughter, Courtney Mckenna who she also reports is surrogate decision maker [phone]. Patient reports that prior to admission she did not utilize any source of DME. Patient is able to complete all ADL's independently. Patient reports she does not have PCP, she reports she just moved to [place] from another town. At time of discharge patient will return home. Next of Kin: daughter, Courtney Mckenna Discharge Plan: Home
[2024-07-20] MEDS: ISOSORBIDE ER MONONITRATE 30 MG TABCR PO (09:46)
[2024-07-20] MEDS: SENNA TABLET 1 TAB PO (09:47)
[2024-07-20] MEDS: ASPIRIN EC 81 MG TABEC PO (09:47)
[2024-07-20] MEDS: PANTOPRAZOLE 40 MG TABLET PO (09:47)
[2024-07-20] MEDS: TICAGRELOR 90 MG TABLET PO ×2 (09:50→20:05)
[2024-07-20] MEDS: Furosemide 20 MG TABLET PO (14:25)
[2024-07-20] MEDS: FUROSEMIDE INJ 10 MG/ML VIAL 2 ML 20 MG IVP (15:04)
[2024-07-20] MEDS: INSULIN LISPRO (AdmeLOG) 1 UNIT/0.01 ML UNIT SC (16:42)
[2024-07-20] MEDS: ATORVASTATIN CALCIUM 20 MG TABLET 40 MG PO (20:05)
--- NOTE | 2024-07-20 23:23 | PC.NURSE ---
Increased pt oxygen to 1L to 2L. Pt oxygen sats at 88% on 1L, increased to 94% on 2L NC. No c/o SOB
[2024-07-21] VITALS (12 sets, daily range): BP systolic 115–156; BP diastolic 61–89; PULSE 76–104; RESP 20–32; TEMP 36.1–36.4; O2SAT 95–99
[2024-07-21 05:44] LABS: Basophils # (Auto) 0.1 Thou/mm3 (0.0-0.2); Basophils % (Auto) 1 % (0-2.5); Eosinophils # (Auto) 0.4 Thou/mm3 (0.0-0.5); Eosinophils % (Auto) 5 % (0-10); Hematocrit 28.7 % (36.0-46.0); Immature Granulocytes % (Auto) 0 % (0-0); Immature Granulocytes Auto 0.02 Thou/mm3 (0.00-0.00); Lymphocytes % (Auto) 12 % (10-50); Mean Corpuscular Hemoglobin 26.3 pg (25.0-35.0); Mean Corpuscular Volume 85 fL (80-100); Monocytes # (Auto) 0.6 Thou/mm3 (0.0-0.8); Monocytes % (Auto) 8 % (0-12); Neutrophils # (Auto) 5.8 Thou/mm3 (1.8-7.7); Neutrophils % (Auto) 74 % (37-80); Nucleated Red Blood Cell % 0 /100 WBC (0); Platelet Count 299 Thou/mm3 (140-440); RDW Standard Deviation 44.3 fL (36.4-46.3); Red Blood Count 3.38 Miln/mm3 (4.00-5.20); White Blood Count 7.8 Thou/mm3 (3.6-11.0)
[2024-07-21 05:47] LABS: Hemoglobin 8.9 g/dL (12.0-16.0)
[2024-07-21 06:23] LABS: Alanine Aminotransferase 27 U/L (10-49); Albumin, Serum 3.3 gm/dL (3.4-4.8); Albumin/Globulin Ratio 1.2 (1.2-2.2); Alkaline Phosphatase 155 U/L (46-116); Anion Gap 7 (7-16); Aspartate Amino Transferase 18 U/L (0-34); BUN/Creatinine Ratio 24 Ratio (12-20); Bilirubin,Total 0.5 mg/dL (0.3-1.2); Blood Urea Nitrogen 34 mg/dL (9-23); Calcium 8.9 mg/dL (8.3-10.6); Calcium (Corrected) 9.5 mg/dL (8.5-10.1); Carbon Dioxide 25.1 mMol/L (20.0-31.0); Chloride 109 mMol/L (98-107); Creatinine (Component) 1.4 mg/dL (0.6-1.3); Estimated Creatinine Clearance 34.6 mL/min (>60); Globulin 2.7 gm/dL (2.3-3.5); Glucose 113 mg/dL (74-106); Magnesium 1.9 mg/dL (1.6-2.6); Osmolality,Calculated 289 (275-295); Phosphorous 3.7 mg/dL (2.4-5.1); Potassium 3.8 mMol/L (3.4-5.1); Sodium 141 mMol/L (136-145); eGFR 41 See Note
--- NOTE | 2024-07-21 07:55 | ESPR_ITS ---
<Statement entered by Reynaldo Phelps MD - 07/21/24 14:30> Patient was seen and examined at the bedside. Patient reported that she still feels mild short of breath and had trace edema on lower extremities. Planning to give her extra dose of Lasix 20 mg IV x 1 with albumin 30 minutes before. Started her on Coreg 3.125 twice daily. Will likely discharge her tomorrow on goal-directed medical therapy. Repeat chest x-ray still shows mild vascular congestion however improvement from day of admission. Continuing aspirin and Brilinta for now. Kidney function shows mildly elevated creatinine today. Will monitor urine output and discharge tomorrow. All labs and orders were reviewed. I saw and examined the patient, and I agree with current management stated by Dr Kiana MD,PGY1. Plan of care was discussed with the attending physician and resident physician. Disclaimer: Despite multiple revisions, due to the dictation software being used, the document bellow may not be free of grammatical errors including phonetic/typographic errors. However, this does not deter from our commitment to providing health care in the patient's best interest in mind. Dr. Mattie MD, PGY 2 Documentation for date of: 07/21/24 Subjective Subjective Interval history: Patient was seen and examined at bedside this AM. No acute exents overnight. Patient tolerating diet, adequate urine output and mentation is at baseline. Patient complains of SOB at rest this a.m. Patient had a fluid balance of - 410cc in the past 24 hours Currently on diuresis with Lasix 40 Mg IV daily. Will start on Coreg 3.125 Mg p.o. twice daily today as part of GDMT K 3.8 and Mg 1.9. Patient repleted with KCl 40 mEq p.o. x 1 and magnesium sulfate 2 g IV x 1 BUN increased to 34 from 32 Cr up trended to 1.4 from 1.2. Bicarb increased to 25.1 from 23. Albumin was 3.3. Patient developed a mild GABY from IV diuresis and was also given 1 dose of albumin 25 g IV x 1 for intravascular fluid movement for extra diuresis. Exam Vital Signs Temp Pulse Resp BP Pulse Ox O2 Del Method O2 Flow Rate 97.2 F 88 24 H 143/79 H 99 Nasal Cannula 2 07/21/24 04:00 07/21/24 04:00 07/21/24 04:00 07/21/24 04:00 07/21/24 04:00 07/21/24 00:00 07/21/24 00:00 Narrative Exam Constitutional Alert, oriented x 3 and moderate distress. Elderly female on O2 via NC HEENT Vision grossly intact. Patent nares. Trachea midline Respiratory Chest normal on inspection and decreased air entry B/L in all lung jackson with crackles at the bases Cardiovascular S1 and S2 audible, RRR. No murmurs carotid bruit. JVD not assessed Abdominal Soft, obese and non tender to palpation in all quadrants. BS + Genitourinary No bladder tenderness, no flank pain. Normal to palpation Musculoskeletal Extremities tone within normal limits. 3+ LE edema up to hips B/L with sacral edema. Neurological CN II - XII grossly intact. Extremity motor and sensation grossly intact. Skin Warm, dry and intact. No apparent lesions. Objective Labs 07/21/24 04:29 07/21/24 04:29 Labs: Laboratory Results - last 24 hr 07/20/24 07/21/24 05:38 04:29 WBC 7.8 RBC 3.38 L Hgb 8.9 L Hct 28.7 L MCV 85 MCH 26.3 MCHC 31.0 RDW Std Deviation 44.3 Plt Count 299 Neut % (Auto) 74 Lymph % (Auto) 12 [place] % (Auto) 8 Eos % (Auto) 5 Baso % (Auto) 1 Neut # (Auto) 5.8 Lymph # (Auto) 1.0 [place] # (Auto) 0.6 Eos # (Auto) 0.4 Baso # (Auto) 0.1 Immature Gran # (Auto) 0.02 H Absolute Nucleated RBC 0.00 Immature Gran % 0 Nucleated RBC % 0 Sodium 141 Potassium 3.8 Chloride 109 H Carbon Dioxide 25.1 Anion Gap 7 BUN 34 H Creatinine 1.4 H Estim Creat Clear Calc 34.6 L eGFR 41 L BUN/Creatinine Ratio 24 H Glucose 113 H Calculated Osmolality 289 Calcium 8.9 Corrected Calcium 9.5 Phosphorus 3.7 Magnesium 1.9 Total Bilirubin 0.5 AST 18 ALT 27 Alkaline Phosphatase 155 H Total Protein 6.0 Albumin 3.3 L Globulin 2.7 Albumin/Globulin Ratio 1.2 Free T4 1.40 Quality Measures Quality Measures VTE prophylaxis Advance care planning discussed with:: patient Assessment & Plan Assessment Current Active Medications: Generic Name Dose Route Start Last Admin Trade Name Freq PRN Reason Stop Dose Admin Acetaminophen 650 mg 07/19/24 18:06 Acetaminophen 325 Mg Tablet PO 08/18/24 18:05 Q6H PRN Fever >101.5 Hydrocodone Bitart/Acetaminophen 1 tab 07/19/24 18:06 07/19/24 19:53 Hydrocodone/Apap 5/325 Tablet PO 07/24/24 18:05 1 tab Q4HR PRN Administration PAIN SCALE 4-10(Mod-Sev Albuterol/Ipratropium 3 ml 07/19/24 18:06 Albuterol/Ipratropium (Duoneb) Rt Jessica 3 Ml Nebu INH 08/18/24 18:05 Q4HR PRN Wheeze Aspirin 81 mg 07/19/24 18:30 07/20/24 09:47 Aspirin Ec 81 Mg Tabec PO 08/18/24 18:29 81 mg QDAY MAXIME Administration Atorvastatin Calcium 40 mg 07/19/24 21:00 07/20/24 20:05 Atorvastatin Calcium 20 Mg Tablet PO 08/18/24 20:59 40 mg HS MAXIME Administration Dextrose 25 ml 07/19/24 18:18 Dextrose 50%-Water Inj 50 Ml Syringe IV 08/18/24 18:17 Q15MIN PRN BG 50-70 responsive npo pt Dextrose 50 ml 07/19/24 18:18 Dextrose 50%-Water Inj 50 Ml Syringe IV 08/18/24 18:17 Q15MIN PRN BG <50 OR BG <70 & pt unresponsive Furosemide 20 mg 07/20/24 14:00 07/20/24 14:25 Furosemide 20 Mg Tablet PO 08/19/24 13:59 20 mg QAM MAXIME Administration Glucagon 1 mg 07/19/24 18:18 Glucagon Inj 1 Mg Vial IM Q15MIN PRN BG <70, and no IV access Hydralazine HCl 10 mg 07/19/24 18:19 Hydralazine Inj 20 Mg/Ml Vial IV 08/18/24 18:18 PRN PRN SBP > 170 Albumin Human 25 gm in 100 mls @ 100 mls/hr 07/21/24 07:48 Albuminar-25 Ivpb IV 07/21/24 08:47 X1 ONE Insulin Human Lispro 0 unit 07/19/24 21:00 07/21/24 07:32 Insulin Lispro (Admelog) 1 Unit/0.01 Ml Unit SC 08/18/24 20:59 Not Given ACHS MAXIME Protocol Isosorbide Mononitrate 30 mg 07/20/24 09:00 07/20/24 09:46 Isosorbide Er Mononitrate 30 Mg Tabcr PO 08/19/24 08:59 30 mg QDAY MAXIME Administration Morphine Sulfate 2 mg 07/19/24 18:06 Morphine Sulf Inj 10 Mg/Ml Vial IVP 07/24/24 18:05 Q4HR PRN PAIN SCALE 7-10 (Severe Protocol Ondansetron HCl 4 mg 07/19/24 18:06 Ondansetron Inj 2 Mg/Ml Inj 2 Ml IV 08/18/24 18:05 Q6H PRN NAUSEA OR VOMITING Protocol Pantoprazole Sodium 40 mg 07/19/24 18:15 07/20/24 09:47 Pantoprazole 40 Mg Tablet PO 08/18/24 18:14 40 mg QDAY MAXIME Administration Sennosides 1 tab 07/20/24 09:00 07/20/24 09:47 Senna Tablet PO 08/19/24 08:59 1 tab QDAY MAXIME Administration Protocol Ticagrelor 90 mg 07/19/24 21:00 07/20/24 20:05 Ticagrelor 90 Mg Tablet PO 08/18/24 20:59 90 mg BID MAXIME Administration Plan Patient was seen with daughter, Courtney at bedside. Patient is a 64-year-old female with a past medical history significant for essential hypertension, NIDDM type II, hyperlipidemia, CKD stage III A, 2 previous strokes on July 08/2024, history of CA, CAD s/p BENNETT on 07/08/2024 and [facility] by network communications engineer Dr. Dennis. Patient currently does not have a PCP but is scheduled to have a visit to establish care with [facility] on 07/26. Patient presented today with a chief complaint of chest pain and SOB.Patient will be admitted to the floors for workup and management of NSTEMI type I versus type II and hypertensive emergency. Cardiology was consulted for NSTEMI. 1. Acute respiratory failure with hypoxia Secondary to 2. New onset decompensated severe systolic congestive heart failure with reduced ejection fraction exacerbation [30-35%] Patient presented with a history of chest pain, central, squeezing, 10/10 in severity, no radiation or diaphoresis but associated with palpitations and dizziness. After presentation to the hospital the chest pain subsided but then again resumed now intermittent. On exam patient had decreased air entry throughout all lung jackson B/L with scattered crackles at the bases. She also had 4+ lower extremity edema up to hips B/L with sacral edema. NYHA class C stage IV EKG was significant for sinus rhythm, rate 98, Q waves in inferior leads and no acute ST changes. Chest x-ray was significant for bibasilar pleural effusion as well as bilateral pulmonary edema. Repeat EKG this a.m. showed sinus rhythm, rate 90 with Q waves in inferior leads. No acute ST changes Overnight from telemetry review patient rate between 70s?80s with occasional PVCs. Transthoracic echogram completed on 07/19/2024 findings include: Normal LV size. Severe systolic dysfunction. Severe global hypokinesis. Estimated EF 30-35% Normal RV size and function. Estimated RVSP 39mmHg. Moderate MR. Mild TR. Trace AI. Pleural effusion present. Dry Mixer, Dr. Britt recommended no need for angiogram as patient chest pain has resolved and she had a recent stent. He thinks his near chest pain is likely due to medication noncompliance. With regards to the echo findings he recommended to start patient on Lasix 20 Mg p.o. daily. Patient complains of SOB at rest this a.m. Patient had a fluid balance of - 410cc in the past 24 hours Currently on diuresis with Lasix 40 Mg IV daily. Will start on Coreg 3.125 Mg p.o. twice daily today as part of GDMT K 3.8 and Mg 1.9. Patient repleted with KCl 40 mEq p.o. x 1 and magnesium sulfate 2 g IV x 1 BUN increased to 34 from 32 Cr up trended to 1.4 from 1.2. Bicarb increased to 25.1 from 23. Albumin was 3.3. Patient developed a mild GABY from IV diuresis and was also given 1 dose of albumin 25 g IV x 1 for intravascular fluid movement for extra diuresis. Plan: ? Strict input output charting ? 1500 cc fluid restriction per day ? 2 g sodium restricted diet ? Daily weights ? Increased Lasix to 40 Mg IV daily from Lasix 20 Mg p.o. daily ? Started patient on Coreg 3.125 Mg p.o. twice daily as part of GDMT as acute heart failure exacerbation is now resolving. ? At some point patient will need to be started on spironolactone, and Entresto as part of GDMT for congestive heart failure once blood pressure allows ? Cardiology, Dr. Britt consulted. Appreciate recommendations 3. ACS?resolved 4. NSTEMI likely type II Patient presented with a history of chest pain, central, squeezing, 10/10 in severity, no radiation or diaphoresis but associated with palpitations and dizziness. After presentation to the hospital the chest pain subsided but then again resumed now intermittent. EKG was significant for sinus rhythm, rate 98, Q waves in inferior leads and no acute ST changes. Chest x-ray was significant for bibasilar pleural effusion as well as bilateral pulmonary edema. Troponin down trended to 0.408 from 0.445 TSH 6.58 and HbA1c 8.3% K4 and Mg 2.3. Etiology possibly type II in setting of hypertensive emergency. Patient states that she has been compliant with her aspirin and Brilinta so likelihood of stent thrombosis and type I NSTEMI less likely. Patient endorses resolution of her chest pain and only complains of mild SOB on exertion this a.m. Plan: ? Continue home medication ASA 81 Mg p.o. daily and Brilinta 90 Mg p.o. twice daily ? Dr. Britt, cardiology consulted. Appreciate recommendations 5. Hypertensive emergency?resolved On admission patient's BP 201/166 and she received hydralazine 10 Mg IV x 1 and Lasix 20 Mg IV x 1 after which BP improved to 171/98. Patient's ongoing chest pain, NSTEMI and troponinemia signs of end organ damage which would indicate hypertensive emergency and not urgency. Patient endorses resolution of her chest pain and only complains of mild SOB on exertion this a.m. Currently BP 143/79 Plan: ? Continue to monitor BP ? Hydralazine 10 Mg IV every 6 hourly as needed if SBP >170 6. CAD s/p BENNETT 06/07/2024 7. Hyperlipidemia 8. History of CA 06/07/2024 Patient had CA 06/07/2024 and received PCI with BENNETT placement at [facility] by Dr. Dennis. Patient's home medication aspirin 81 Mg p.o. daily, Brilinta 90 Mg p.o. twice daily and atorvastatin 40 Mg p.o. at bedtime. Plan: ? Continue home medication ? Aspirin 81 Mg p.o. daily ? Brilinta 90 Mg p.o. twice daily ? Atorvastatin 40 Mg p.o. at bedtime 9. Essential hypertension On admission BP 201/66. Currently BP 117/69 Home medication isosorbide mononitrate 30 Mg p.o. daily, metoprolol succinate 25 Mg p.o. daily Plan: ? Resume home medication isosorbide mononitrate 30 Mg p.o. daily ? Beta-astrid on hold for nausea contraindicated in acute decompensated heart failure with exacerbation. 10. Xbr-[id number]-[id number] diabetes mellitus type 2 Patient does not appear to be on any home medication and no recent HbA1c seen on file HbA1c on this admission 8.3% Plan: ? Insulin sliding scale to cover for any blood glucose spikes 11. GABY on CKD stage IIIb Patient reports that she has a history of kidney disease but not sure of her baseline kidney function. On admission her CR was 1.2, currently up trended to 1.4 Worsening of kidney function most likely due to diuresis IV Plan: ? Avoid nephrotoxic agent ? Renally dose medication 12. Normocytic anemia No previous labs available for comparison. On admission Hb 10.2 down trended to 8.9 Etiology: Iron deficiency anemia, blood loss, peptic ulcer disease, anemia of chronic disease secondary to chronic kidney disease, lead poisoning. Plan: ? Will consider ordering full anemia workup once workup for possible new onset CHF and NSTEMI completed. 13. Elevated TSH TSH elevated at 6.58 and T4 normal at 1.4 DDx: Subclinical hypothyroidism, in the setting of CHF exacerbation, elderly age, medication side effect Plan: ? Recommend repeat thyroid function test in 6 weeks as outpatient with your PCP 14. Elevated ALP On admission ALP elevated at 179 currently down trended to 155. This may be from hepatic congestion and resulting of severe systolic congestive heart failure exacerbation. Plan: ? Continue to trend liver function tests Health maintenance: Disposition: Diuresis for CHF exacerbation. Started Coreg as part of goal- directed medical therapy Diet: Cardiac Lines: pIVs GI Prophylaxis: Protonix Thrombo Prophylaxis: Aspirin and ticagrelor Code status: FULL CODE Plan of care discussed with Attending Dr. Bray and PGY2 Dr. Mattie Bruno MD PGY 1 Attending Provider Attestation/Addendum I have discussed and was present for the essential components of the history, physical examination, diagnosis, and treatment plan with the resident. I agree with the patient's care as documented by the resident and amended herein by me. Koby Bray DO. Patient seen and evaluated this AM. In Short, patient is a 64-year-old female with significant past medical history of CA in May 2024, CAD status post drug-eluting stent on 06/07/2024, hypertension, type 2 diabetes, HLD, CKD 3, previous CVAs who presented to [facility] on 07/19 for ACS rule out secondary to persistent midsternal, nonradiating chest pain. Of note, patient also suspected to be noncompliant with medications. Interval Hx: 07/20: no acute events overnight, vital signs stable, patient afebrile, significant labs include slightly down trended to hemoglobin at 9.5, BMP unremarkable, LDL 139, TSH 6.5, T4 pending. Echocardiogram on 07/19 demonstrated normal LV size, severe systolic dysfunction, severe global hypokinesis with an estimated EF of 30 to 35%, normal RV size and function, estimated RVSP at 39 mmHg, moderate MR, mild TR and trace AI with a pleural effusion present 07/21: No acute events overnight, vital signs stable, patient afebrile, I's and O's 690/1100. Significant labs include hemoglobin at 8.9 today, bicarb 25, slightly uptrending creatinine at 1.4 and a BUN of 34. Repeat chest x-ray demonstrating prominent CHF SIGNIFICANT PROBLEM LIST: #NSTEMI, possible type I considering midsternal chest pain, elevated troponins on arrival #New onset CHF, EF 30 to 35% with acute decompensation #CAD status post BENNETT 06/07 #History of CA 06/07/2024 #History of hypertension #Medication non-compliance PLAN: Cardiology consulted appreciate recommendations, will give a dose of albumin today and continue to diurese while closely monitoring renal function, may give diuretic holiday tomorrow. Will continue aspirin and Brilinta for now and continue to monitor closely. Patient is stable, blood pressure is slightly elevated hence we will start Coreg 3.125 mg twice daily however will hold on the rest of GDMT medications for now. MEDICATIONS: Aspirin 81 mg daily Atorvastatin 40 mg at bedtime Lasix 40 mg IV daily Isosorbide mononitrate 30 mg daily As needed morphine Protonix 40 mg daily Brilinta 90 mg p.o. twice daily Coreg 3.125 mg daily Although this document has been carefully reviewed, there may still be some phonetic and other typographical errors. These errors are purely grammatical due to imperfections in the software program and should not be construed in any way to compromise the substance of the patient's medical care during this visit.
[2024-07-21] MEDS: ALBUMIN HUMAN 25% IVPB 25 GM/100 ML BTL IV (08:36)
[2024-07-21] MEDS: ISOSORBIDE ER MONONITRATE 30 MG TABCR PO (08:37)
[2024-07-21] MEDS: POTASSIUM CHLORIDE 20 mEq TABCR 40 MEQ PO (08:37)
[2024-07-21] MEDS: TICAGRELOR 90 MG TABLET PO ×2 (08:37→21:21)
[2024-07-21] MEDS: ASPIRIN EC 81 MG TABEC PO (08:38)
[2024-07-21] MEDS: PANTOPRAZOLE 40 MG TABLET PO (08:38)
[2024-07-21] MEDS: SENNA TABLET 1 TAB PO (08:38)
[2024-07-21] MEDS: FUROSEMIDE INJ 10 MG/ML VIAL 2 ML 20 MG IVP ×2 (08:43→11:40)
[2024-07-21] MEDS: Magnesium Sulfate 2 GM Ivpb 2 GM/50 ML BAG IV (10:20)
--- NOTE | 2024-07-21 11:01 | XR_ITS ---
Examination: AP chest single view TECHNIQUE: AP upright portable chest single view Exam date and time: July 21, 2024 1126 hours Comparison July 19, 2024 INDICATIONS: Shortness of breath today. FINDINGS: Prominent CHF Enlarged cardiac contour prominent vascular congestion Perihilar edema and large bilateral pleural effusions IMPRESSION: Prominent CHF
--- NOTE | 2024-07-21 14:59 | ESPR_ITS ---
Documentation for date of: 07/21/24 Subjective Subjective Interval history: some what sob EF reduced by echo Exam Vital Signs Temp Pulse Resp BP Pulse Ox O2 Del Method O2 Flow Rate 97.4 F 89 27 H 143/86 H 96 Nasal Cannula 2 07/21/24 12:00 07/21/24 12:00 07/21/24 12:00 07/21/24 12:00 07/21/24 12:00 07/21/24 12:00 07/21/24 12:00 Routine HEENT Exam Head: Present normocephalic and atraumatic Eye: Present EOMI and PERRL ENT: Present mucous membranes moist Routine Neck Exam Neck: Present supple and trachea midline Routine Respiratory Exam Respiratory: Present chest non-tender, lungs clear, normal breath sounds and no resp distress Routine Cardiovascular Exam Cardiovascular: Present RRR Routine Abdominal Exam Abdominal: Present soft and normoactive bowel sounds Routine Extremities Exam Extremities: Present full ROM Routine Skin Exam Skin: Present intact, dry and warm Routine Neurological Exam Neurological: Present alert, oriented X3 and CN II-XII intact Routine Psychiatric Exam Psychiatric: Present normal affect and normal thought process Objective Labs 07/21/24 04:29 07/21/24 04:29 Labs: Laboratory Results - last 24 hr 07/21/24 04:29 WBC 7.8 RBC 3.38 L Hgb 8.9 L Hct 28.7 L MCV 85 MCH 26.3 MCHC 31.0 RDW Std Deviation 44.3 Plt Count 299 Neut % (Auto) 74 Lymph % (Auto) 12 [place] % (Auto) 8 Eos % (Auto) 5 Baso % (Auto) 1 Neut # (Auto) 5.8 Lymph # (Auto) 1.0 [place] # (Auto) 0.6 Eos # (Auto) 0.4 Baso # (Auto) 0.1 Immature Gran # (Auto) 0.02 H Absolute Nucleated RBC 0.00 Immature Gran % 0 Nucleated RBC % 0 Sodium 141 Potassium 3.8 Chloride 109 H Carbon Dioxide 25.1 Anion Gap 7 BUN 34 H Creatinine 1.4 H Estim Creat Clear Calc 34.6 L eGFR 41 L BUN/Creatinine Ratio 24 H Glucose 113 H Calculated Osmolality 289 Calcium 8.9 Corrected Calcium 9.5 Phosphorus 3.7 Magnesium 1.9 Total Bilirubin 0.5 AST 18 ALT 27 Alkaline Phosphatase 155 H Total Protein 6.0 Albumin 3.3 L Globulin 2.7 Albumin/Globulin Ratio 1.2 Assessment & Plan A&P Narrative agree with heart failure treatment Time Spent With Patient Time: Total time spent is greater than 50% in coordination of care (as documented) at patient's floor/unit and/or counseling patient:
[2024-07-21] MEDS: INSULIN LISPRO (AdmeLOG) 1 UNIT/0.01 ML UNIT SC ×2 (17:53→21:22)
[2024-07-21] MEDS: carVEDILOL 3.125 MG TABLET PO (17:56)
[2024-07-21] MEDS: ATORVASTATIN CALCIUM 20 MG TABLET 40 MG PO (21:21)
[2024-07-22] VITALS (11 sets, daily range): BP systolic 100–151; BP diastolic 67–88; PULSE 70–81; RESP 14–93; TEMP 35.9–36.3; O2SAT 93–99
[2024-07-22 05:52] LABS: Basophils # (Auto) 0.1 Thou/mm3 (0.0-0.2); Basophils % (Auto) 1 % (0-2.5); Eosinophils # (Auto) 0.3 Thou/mm3 (0.0-0.5); Eosinophils % (Auto) 4 % (0-10); Hematocrit 29.1 % (36.0-46.0); Hemoglobin 9.2 g/dL (12.0-16.0); Immature Granulocytes % (Auto) 0 % (0-0); Immature Granulocytes Auto 0.03 Thou/mm3 (0.00-0.00); Lymphocytes % (Auto) 13 % (10-50); Mean Corpuscular HGB Conc 31.6 g/dl (31.0-37.0); Mean Corpuscular Hemoglobin 27.2 pg (25.0-35.0); Mean Corpuscular Volume 86 fL (80-100); Monocytes # (Auto) 0.8 Thou/mm3 (0.0-0.8); Monocytes % (Auto) 10 % (0-12); Neutrophils # (Auto) 5.3 Thou/mm3 (1.8-7.7); Neutrophils % (Auto) 72 % (37-80); Nucleated Red Blood Cell % 0 /100 WBC (0); Platelet Count 375 Thou/mm3 (140-440); RDW Standard Deviation 43.6 fL (36.4-46.3); Red Blood Count 3.38 Miln/mm3 (4.00-5.20); White Blood Count 7.4 Thou/mm3 (3.6-11.0)
[2024-07-22 06:25] LABS: Alanine Aminotransferase 27 U/L (10-49); Albumin, Serum 3.7 gm/dL (3.4-4.8); Albumin/Globulin Ratio 1.4 (1.2-2.2); Alkaline Phosphatase 146 U/L (46-116); Anion Gap 9 (7-16); Aspartate Amino Transferase 19 U/L (0-34); BUN/Creatinine Ratio 24 Ratio (12-20); Bilirubin,Total 0.5 mg/dL (0.3-1.2); Blood Urea Nitrogen 34 mg/dL (9-23); Calcium 9.3 mg/dL (8.3-10.6); Calcium (Corrected) 9.5 mg/dL (8.5-10.1); Carbon Dioxide 27.3 mMol/L (20.0-31.0); Chloride 107 mMol/L (98-107); Creatinine (Component) 1.4 mg/dL (0.6-1.3); Estimated Creatinine Clearance 34.6 mL/min (>60); Globulin 2.6 gm/dL (2.3-3.5); Glucose 95 mg/dL (74-106); Magnesium 2.2 mg/dL (1.6-2.6); Osmolality,Calculated 292 (275-295); Phosphorous 3.4 mg/dL (2.4-5.1); Sodium 143 mMol/L (136-145); Total Protein 6.3 gm/dL (5.7-8.2); eGFR 41 See Note
[2024-07-22] MEDS: MORPHINE SULF INJ 10 MG/ML VIAL 2 MG IVP (07:36)
[2024-07-22] MEDS: carVEDILOL 3.125 MG TABLET PO ×2 (07:41→18:35)
[2024-07-22] MEDS: PANTOPRAZOLE 40 MG TABLET PO (08:08)
[2024-07-22] MEDS: SENNA TABLET 1 TAB PO (08:08)
[2024-07-22] MEDS: FUROSEMIDE INJ 10 MG/ML 4ML VIAL 40 MG IVP (08:08)
[2024-07-22] MEDS: ASPIRIN EC 81 MG TABEC PO (08:08)
[2024-07-22] MEDS: ISOSORBIDE ER MONONITRATE 30 MG TABCR PO (08:08)
--- NOTE | 2024-07-22 08:29 | ESPR_ITS ---
<Statement entered by Reynaldo Phelps MD - 07/22/24 12:50> Patient was seen and examined at the bedside. Patient seems to be confused today and is not oriented to time and place. Her daughter was present at the bedside and was explained that we will keep the patient today and repeat urinalysis to evaluate for any infection. Encouraged on sleep hygiene and family visits. Will continue with Coreg and Lasix for now. Electrolyte panel showed kidney functions BUN 34 and creatinine 1.4. Blood pressure stable. PT recommended home health. Will keep her and evaluate for any infectious causes on UA. Delirium precautions. All labs and orders were reviewed. I saw and examined the patient, and I agree with current management stated by Dr Kiana MD,PGY1. Plan of care was discussed with the attending physician and resident physician. Disclaimer: Despite multiple revisions, due to the dictation software being used, the document bellow may not be free of grammatical errors including phonetic/typographic errors. However, this does not deter from our commitment to providing health care in the patient's best interest in mind. Dr. Mattie MD, PGY 2 Documentation for date of: 07/22/24 Subjective Subjective Interval history: Patient is bilingual but understands Estonian better. Interaction facilitated with registered healthcare highway construction inspector. Patient was seen and examined at bedside this AM. Daughter Courtney was present No acute exents overnight. Patient tolerating diet, adequate urine output and mentation is altered Patient complains of SOB at rest this a.m. and is only oriented to self. She thinks she is in a restaurant and wants to go home Patient had a fluid balance of - 560 in the past 24 hours Continue diuresis with Lasix 40 Mg IV daily. On Coreg 3.125 Mg p.o. twice daily today as part of GDMT K 4 And Mg 2.2. Patient repleted with KCl 20 mEq p.o. x 1 BUN stable at 34 Cr stable at 1.4. Bicarb increased to 27.3 from 25. We will discontinue her urinary catheter and order urinalysis. Also due to patient's altered mentation, her daughter is requesting power of compliance attorney to manage her affairs. Physical therapy also assessed the patient and recommended for home health on discharge. Exam Vital Signs Temp Pulse Resp BP Pulse Ox O2 Del Method O2 Flow Rate 96.7 F L 81 31 H 151/88 H 98 Nasal Cannula 3 07/22/24 08:00 07/22/24 08:08 07/22/24 08:00 07/22/24 08:08 07/22/24 08:00 07/22/24 08:00 07/22/24 08:00 Narrative Exam Constitutional Alert, oriented x 1 [Person only] andcomfortable. Elderly female on O2 via NC HEENT Vision grossly intact. Patent nares. Trachea midline Respiratory Chest normal on inspection and decreased air entry B/L in all lung jackson with crackles at mid to lower zones B/L Cardiovascular S1 and S2 audible, RRR. No murmurs carotid bruit. JVD not assessed Abdominal Soft, obese and non tender to palpation in all quadrants. BS + Genitourinary No bladder tenderness, no flank pain. Normal to palpation Musculoskeletal Extremities tone within normal limits. 3+ LE edema up to hips B/L with sacral edema?improving Neurological CN II - XII grossly intact. Extremity motor and sensation grossly intact. Skin Warm, dry and intact. No apparent lesions. Objective Labs 07/22/24 04:13 07/22/24 04:13 Labs: Laboratory Results - last 24 hr 07/22/24 04:13 WBC 7.4 RBC 3.38 L Hgb 9.2 L Hct 29.1 L MCV 86 MCH 27.2 MCHC 31.6 RDW Std Deviation 43.6 Plt Count 375 D Neut % (Auto) 72 Lymph % (Auto) 13 [place] % (Auto) 10 Eos % (Auto) 4 Baso % (Auto) 1 Neut # (Auto) 5.3 Lymph # (Auto) 1.0 [place] # (Auto) 0.8 Eos # (Auto) 0.3 Baso # (Auto) 0.1 Immature Gran # (Auto) 0.03 H Absolute Nucleated RBC 0.00 Immature Gran % 0 Nucleated RBC % 0 Sodium 143 Potassium 4.0 Chloride 107 Carbon Dioxide 27.3 Anion Gap 9 BUN 34 H Creatinine 1.4 H Estim Creat Clear Calc 34.6 L eGFR 41 L BUN/Creatinine Ratio 24 H Glucose 95 Calculated Osmolality 292 Calcium 9.3 Corrected Calcium 9.5 Phosphorus 3.4 Magnesium 2.2 Total Bilirubin 0.5 AST 19 ALT 27 Alkaline Phosphatase 146 H Total Protein 6.3 Albumin 3.7 Globulin 2.6 Albumin/Globulin Ratio 1.4 Quality Measures Quality Measures VTE prophylaxis Advance care planning discussed with:: other Assessment & Plan Assessment Current Active Medications: Generic Name Dose Route Start Last Admin Trade Name Freq PRN Reason Stop Dose Admin Acetaminophen 650 mg 07/19/24 18:06 Acetaminophen 325 Mg Tablet PO 08/18/24 18:05 Q6H PRN Fever >101.5 Hydrocodone Bitart/Acetaminophen 1 tab 07/19/24 18:06 07/19/24 19:53 Hydrocodone/Apap 5/325 Tablet PO 07/24/24 18:05 1 tab Q4HR PRN Administration PAIN SCALE 4-10(Mod-Sev Albuterol/Ipratropium 3 ml 07/19/24 18:06 Albuterol/Ipratropium (Duoneb) Rt Jessica 3 Ml Nebu INH 08/18/24 18:05 Q4HR PRN Wheeze Aspirin 81 mg 07/19/24 18:30 07/22/24 08:08 Aspirin Ec 81 Mg Tabec PO 08/18/24 18:29 81 mg QDAY MAXIME Administration Atorvastatin Calcium 40 mg 07/19/24 21:00 07/21/24 21:21 Atorvastatin Calcium 20 Mg Tablet PO 08/18/24 20:59 40 mg HS MAXIME Administration Carvedilol 3.125 mg 07/21/24 17:30 07/22/24 07:41 Carvedilol 3.125 Mg Tablet PO 08/20/24 17:29 3.125 mg BIDWM MAXIME Administration Dextrose 25 ml 07/19/24 18:18 Dextrose 50%-Water Inj 50 Ml Syringe IV 08/18/24 18:17 Q15MIN PRN BG 50-70 responsive npo pt Dextrose 50 ml 07/19/24 18:18 Dextrose 50%-Water Inj 50 Ml Syringe IV 08/18/24 18:17 Q15MIN PRN BG <50 OR BG <70 & pt unresponsive Furosemide 40 mg 07/22/24 09:00 07/22/24 08:08 Furosemide Inj 10 Mg/Ml 4ml Vial IVP 08/21/24 08:59 40 mg QDAY MAXIME Administration Glucagon 1 mg 07/19/24 18:18 Glucagon Inj 1 Mg Vial IM Q15MIN PRN BG <70, and no IV access Hydralazine HCl 10 mg 07/21/24 11:45 Hydralazine Inj 20 Mg/Ml Vial IV 08/18/24 18:18 Q6H PRN SBP > 170 Insulin Human Lispro 0 unit 07/19/24 21:00 07/22/24 07:30 Insulin Lispro (Admelog) 1 Unit/0.01 Ml Unit SC 08/18/24 20:59 Not Given ACHS MAXIME Protocol Isosorbide Mononitrate 30 mg 07/20/24 09:00 07/22/24 08:08 Isosorbide Er Mononitrate 30 Mg Tabcr PO 08/19/24 08:59 30 mg QDAY MAXIME Administration Morphine Sulfate 2 mg 07/19/24 18:06 07/22/24 07:36 Morphine Sulf Inj 10 Mg/Ml Vial IVP 07/24/24 18:05 2 mg Q4HR PRN Administration PAIN SCALE 7-10 (Severe Protocol Ondansetron HCl 4 mg 07/19/24 18:06 Ondansetron Inj 2 Mg/Ml Inj 2 Ml IV 08/18/24 18:05 Q6H PRN NAUSEA OR VOMITING Protocol Pantoprazole Sodium 40 mg 07/19/24 18:15 07/22/24 08:08 Pantoprazole 40 Mg Tablet PO 08/18/24 18:14 40 mg QDAY MAXIME Administration Sennosides 1 tab 07/20/24 09:00 07/22/24 08:08 Senna Tablet PO 08/19/24 08:59 1 tab QDAY MAXIME Administration Protocol Ticagrelor 90 mg 07/19/24 21:00 07/21/24 21:21 Ticagrelor 90 Mg Tablet PO 08/18/24 20:59 90 mg BID MAXIME Administration Plan Patient was seen with daughter, Courtney at bedside. Patient is a 64-year-old female with a past medical history significant for essential hypertension, NIDDM type II, hyperlipidemia, CKD stage III A, 2 previous strokes on July 08/2024, history of WI, CAD s/p BENNETT on 07/08/2024 and [facility] by pharmacy technician per diem Dr. Dennis. Patient currently does not have a PCP but is scheduled to have a visit to establish care with [facility] on 07/26. Patient presented today with a chief complaint of chest pain and SOB.Patient will be admitted to the floors for workup and management of NSTEMI type I versus type II and hypertensive emergency. Cardiology was consulted for NSTEMI. 1. Acute respiratory failure with hypoxia?resolving Secondary to 2. New onset decompensated severe systolic congestive heart failure with reduced ejection fraction exacerbation [30-35%] Patient presented with a history of chest pain, central, squeezing, 10/10 in severity, no radiation or diaphoresis but associated with palpitations and dizziness. After presentation to the hospital the chest pain subsided but then again resumed now intermittent. On exam patient had decreased air entry throughout all lung jackson B/L with scattered crackles at the bases. She also had 4+ lower extremity edema up to hips B/L with sacral edema. NYHA class C stage IV EKG was significant for sinus rhythm, rate 98, Q waves in inferior leads and no acute ST changes. Chest x-ray was significant for bibasilar pleural effusion as well as bilateral pulmonary edema. Repeat EKG this a.m. showed sinus rhythm, rate 90 with Q waves in inferior leads. No acute ST changes Overnight from telemetry review patient rate between 70s?80s with occasional PVCs. Transthoracic echogram completed on 07/19/2024 findings include: Normal LV size. Severe systolic dysfunction. Severe global hypokinesis. Estimated EF 30-35% Normal RV size and function. Estimated RVSP 39mmHg. Moderate MR. Mild TR. Trace AI. Pleural effusion present. Slurry Control Operator Helper, Dr. Britt recommended no need for angiogram as patient chest pain has resolved and she had a recent stent. He thinks his near chest pain is likely due to medication noncompliance. With regards to the echo findings he recommended to start patient on Lasix 20 Mg p.o. daily. Fluid balance of -560cc in past 24 hours Plan: ? Strict input output charting ? 1500 cc fluid restriction per day ? 2 g sodium restricted diet ? Daily weights ? Continue Lasix 40 Mg IV daily ? Continue Coreg 3.125 Mg p.o. twice daily as part of GDMT ? At some point patient will need to be started on spironolactone, and Entresto as part of GDMT for congestive heart failure once blood pressure allows ? Cardiology, Dr. Britt consulted. Appreciate recommendations 3. Altered mental status This a.m. patient was only oriented to self and thought she was in a restaurant. She kept asking to go back to her room. DDx: Hospital induced delirium, acute metabolic encephalopathy, dementia, dehydration, medication side effect Plan: - Discontinued morphine ? General Measures including sleep hygiene, keeping lights on during the day and room dark and free of noises at night. ? Ballesteros catheter removed ? PureWick catheter placed ? Urinalysis +/- culture and sensitivity if indicated 4. ACS?resolved 5. NSTEMI likely type II Patient presented with a history of chest pain, central, squeezing, 10/10 in severity, no radiation or diaphoresis but associated with palpitations and dizziness. After presentation to the hospital the chest pain subsided but then again resumed now intermittent. EKG was significant for sinus rhythm, rate 98, Q waves in inferior leads and no acute ST changes. Chest x-ray was significant for bibasilar pleural effusion as well as bilateral pulmonary edema. Troponin down trended to 0.408 from 0.445 TSH 6.58 and HbA1c 8.3% K4 and Mg 2.3. Etiology possibly type II in setting of hypertensive emergency. Patient states that she has been compliant with her aspirin and Brilinta so likelihood of stent thrombosis and type I NSTEMI less likely. Patient endorses resolution of her chest pain and only complains of mild SOB on exertion this a.m. Plan: ? Continue home medication ASA 81 Mg p.o. daily and Brilinta 90 Mg p.o. twice daily ? Dr. Britt, cardiology consulted. Appreciate recommendations 6. Hypertensive emergency?resolved On admission patient's BP 201/166 and she received hydralazine 10 Mg IV x 1 and Lasix 20 Mg IV x 1 after which BP improved to 171/98. Patient's ongoing chest pain, NSTEMI and troponinemia signs of end organ damage which would indicate hypertensive emergency and not urgency. Patient endorses resolution of her chest pain and only complains of mild SOB on exertion this a.m. Currently BP 144/86 Plan: ? Continue to monitor BP ? Hydralazine 10 Mg IV every 6 hourly as needed if SBP >170 7. CAD s/p BENNETT 06/07/2024 8. Hyperlipidemia 9. History of WI 06/07/2024 Patient had WI 06/07/2024 and received PCI with BENNETT placement at [facility] by Dr. Dennis. Patient's home medication aspirin 81 Mg p.o. daily, Brilinta 90 Mg p.o. twice daily and atorvastatin 40 Mg p.o. at bedtime. Plan: ? Continue home medication ? Aspirin 81 Mg p.o. daily ? Brilinta 90 Mg p.o. twice daily ? Atorvastatin 40 Mg p.o. at bedtime 10. Essential hypertension On admission BP 201/66. Currently BP 117/69 Home medication isosorbide mononitrate 30 Mg p.o. daily, metoprolol succinate 25 Mg p.o. daily Plan: ? Resume home medication isosorbide mononitrate 30 Mg p.o. daily ? Beta-astrid on hold for nausea contraindicated in acute decompensated heart failure with exacerbation. 11. [id number] diabetes mellitus type 2 Patient does not appear to be on any home medication and no recent HbA1c seen on file HbA1c on this admission 8.3% Plan: ? Insulin sliding scale to cover for any blood glucose spikes 12. GABY on CKD stage IIIb Patient reports that she has a history of kidney disease but not sure of her baseline kidney function. On admission her CR was 1.2, currently up trended to 1.4 Worsening of kidney function most likely due to diuresis IV Plan: ? Avoid nephrotoxic agent ? Renally dose medication 13. Normocytic anemia No previous labs available for comparison. On admission Hb 10.2 down trended to 8.9 Etiology: Iron deficiency anemia, blood loss, peptic ulcer disease, anemia of chronic disease secondary to chronic kidney disease, lead poisoning. Plan: ? Will consider ordering full anemia workup once workup for possible new onset CHF and NSTEMI completed. 14. Elevated TSH TSH elevated at 6.58 and T4 normal at 1.4 DDx: Subclinical hypothyroidism, in the setting of CHF exacerbation, elderly age, medication side effect Plan: ? Recommend repeat thyroid function test in 6 weeks as outpatient with your PCP 15. Elevated ALP On admission ALP elevated at 179 currently down trended to 146. This may be from hepatic congestion and resulting of severe systolic congestive heart failure exacerbation. Plan: ? Continue to trend liver function tests Health maintenance: Disposition: IV Diuresis for CHF exacerbation. Pending urinalysis. Sleep hygiene and general measures for likely hospital induced delirium. Diet: Cardiac Lines: pIVs GI Prophylaxis: Protonix Thrombo Prophylaxis: Aspirin and ticagrelor Code status: FULL CODE Plan of care discussed with Attending Dr. Bray and PGY2 Dr. Mattie Bruno MD PGY 1 Attending Provider Attestation/Addendum I have discussed and was present for the essential components of the history, physical examination, diagnosis, and treatment plan with the resident. I agree with the patient's care as documented by the resident and amended herein by me. Koby Bray DO. In short 63-year-old female with significant past medical history of hypertension, type 2 diabetes, HLD, CKD 3, CVA, history of WI in May 2024 status post BENNETT placement at that time, and medication noncompliance presented to the ED with chest pain, shortness of breath and lower extremity edema. Subsequently admitted for ACS rule out and hypertensive emergency. No significant events overnight, I/O 940/1500, vital signs stable, patient afebrile overnight. No subjective complaints by patient in the AM. Patient was apparently a bit altered early in the morning however was baseline when I saw her at time of bedside visit. CBC only remarkable for a stable hemoglobin 9.2, BUN 34, creatinine stable at 1.4, admission was 1.2. Chest x-ray on 07/21 demonstrating prominent CHF, echocardiogram performed on 07/19 demonstrating severe systolic dysfunction severe global hypokinesis with an estimated EF of 30-35% within normal RV size and function, estimated RVSP 39. Pleural effusion was noted. SIGNIFICANT PROBLEM LIST/PLAN: #NSTEMI type II, likely demand ischemia initial troponin peaked at 0.408 however down trended #New onset HFrEF in exacerbation, EF 30 to 35%, possibly secondary to medication #Hypertensive emergency?resolved -Heart failure measures, strict I's and O's, fluid restrict, cardiac diet, daily weights -Continue Lasix 40 mg IV daily -Continue Coreg 3.125 mg twice daily, can start rest of GDMT, Entresto and possibly spironolactone prior to discharge -Cardiology consulted, Dr. Britt, appreciate recommendations Although this document has been carefully reviewed, there may still be some phonetic and other typographical errors. These errors are purely grammatical due to imperfections in the software program and should not be construed in any way to compromise the substance of the patient's medical care during this visit.
[2024-07-22] MEDS: TICAGRELOR 90 MG TABLET PO ×2 (09:00→20:28)
[2024-07-22] MEDS: POTASSIUM CHLORIDE 20 mEq TABCR PO (09:13)
[2024-07-22] MEDS: ATORVASTATIN CALCIUM 20 MG TABLET 40 MG PO (20:28)
[2024-07-22] MEDS: INSULIN LISPRO (AdmeLOG) 1 UNIT/0.01 ML UNIT SC (20:28)
--- NOTE | 2024-07-22 22:08 | PC.NURSE ---
PT RESTING ON BED. PT DENIES URGE TO URINATE, NO BLADDER DISTENSION NOTED. BLADDER SOFT, NONTENDER. PUREWICK IN PLACE. CALL LIGHT WITHIN REACH.
--- NOTE | 2024-07-22 23:52 | PC.NURSE ---
pt notified of in and out cath order. pt refused, pt assisted to bedside commode and she urinated without difficulty. assisted back in bed.
[2024-07-22 23:58] LABS: Collection Type, Urine Catheter
[2024-07-23] VITALS (10 sets, daily range): BP systolic 123–141; BP diastolic 73–82; PULSE 63–80; RESP 17–30; TEMP 36.1–36.6; O2SAT 95–99; BMI 24.2; BMI 15.0
[2024-07-23 00:47] LABS: Bacteria,Urine Rare; Bilirubin,Urine Negative (Negative); Blood,Urine 2+ (Negative); Clarity,Urine Clear (Clear/Hazy); Color,Urine Yellow (Lt Yel-Yel); Glucose, Urine Negative (Negative); Hyaline Casts,Urine 2 /hpf (0-1); Ketones,Urine Negative (Negative); Leukocyte Esterase,Urine Positive (Negative); Nitrite,Urine Negative (Negative); Protein,Urine 1+ (Neg - Trace); RBC,Urine 36 /hpf (0-3); Specific Gravity,Urine 1.013 (1.001-1.035); Squamous Epithelial Cell,Urine 4 /hpf (0-5); Urobilinogen,Urine Negative mg/dL (0.0-1.0); WBC,Urine 23 /hpf (0-5)
[2024-07-23 00:48] LABS: Culture Indicated,Urine Yes
[2024-07-23 05:11] LABS: Basophils % (Auto) 1 % (0-2.5); Eosinophils # (Auto) 0.4 Thou/mm3 (0.0-0.5); Eosinophils % (Auto) 6 % (0-10); Hemoglobin 8.9 g/dL (12.0-16.0); Immature Granulocytes % (Auto) 0 % (0-0); Immature Granulocytes Auto 0.02 Thou/mm3 (0.00-0.00); Lymphocytes # (Auto) 1.2 Thou/mm3 (1.0-4.8); Lymphocytes % (Auto) 18 % (10-50); Mean Corpuscular HGB Conc 30.7 g/dl (31.0-37.0); Mean Corpuscular Hemoglobin 26.3 pg (25.0-35.0); Mean Corpuscular Volume 86 fL (80-100); Monocytes # (Auto) 0.7 Thou/mm3 (0.0-0.8); Monocytes % (Auto) 10 % (0-12); Neutrophils # (Auto) 4.6 Thou/mm3 (1.8-7.7); Neutrophils % (Auto) 66 % (37-80); Nucleated Red Blood Cell % 0 /100 WBC (0); Platelet Count 296 Thou/mm3 (140-440); RDW Standard Deviation 44.5 fL (36.4-46.3); Red Blood Count 3.39 Miln/mm3 (4.00-5.20)
[2024-07-23 05:36] LABS: Alanine Aminotransferase 23 U/L (10-49); Albumin, Serum 3.4 gm/dL (3.4-4.8); Albumin/Globulin Ratio 1.4 (1.2-2.2); Alkaline Phosphatase 137 U/L (46-116); Anion Gap 8 (7-16); Aspartate Amino Transferase 15 U/L (0-34); BUN/Creatinine Ratio 25 Ratio (12-20); Bilirubin,Total 0.5 mg/dL (0.3-1.2); Blood Urea Nitrogen 30 mg/dL (9-23); Calcium 9.1 mg/dL (8.3-10.6); Calcium (Corrected) 9.6 mg/dL (8.5-10.1); Chloride 106 mMol/L (98-107); Creatinine (Component) 1.2 mg/dL (0.6-1.3); Estimated Creatinine Clearance 40.3 mL/min (>60); Globulin 2.5 gm/dL (2.3-3.5); Glucose 120 mg/dL (74-106); Osmolality,Calculated 288 (275-295); Phosphorous 3.3 mg/dL (2.4-5.1); Potassium 3.6 mMol/L (3.4-5.1); Sodium 141 mMol/L (136-145); Total Protein 5.9 gm/dL (5.7-8.2); eGFR 50 See Note
[2024-07-23] MEDS: ASPIRIN EC 81 MG TABEC PO (08:18)
[2024-07-23] MEDS: TICAGRELOR 90 MG TABLET PO ×2 (08:18→20:40)
[2024-07-23] MEDS: SENNA TABLET 1 TAB PO (08:18)
[2024-07-23] MEDS: carVEDILOL 3.125 MG TABLET PO ×2 (08:18→17:31)
[2024-07-23] MEDS: PANTOPRAZOLE 40 MG TABLET PO (08:18)
[2024-07-23] MEDS: ISOSORBIDE ER MONONITRATE 30 MG TABCR PO (08:18)
[2024-07-23] MEDS: FUROSEMIDE INJ 10 MG/ML 4ML VIAL 40 MG IVP ×2 (08:18→17:31)
--- NOTE | 2024-07-23 11:32 | PD.HHPROG ---
Documentation for date of: 07/23/24 Subjective - Hospitalist Subjective Interval history: Patient seen and eval this a.m. She states that she is feeling well. Patient is sitting on the edge of the bed and has no acute complaints. She was noted to have bilateral lower extremity swelling. Patient states that it was really bad last week and had extended up to her hips. She otherwise denies any shortness of breath, chest pain, fevers or chills. She remains on 1 L nasal cannula. Patient states that she does not use any home O2 otherwise. Review of Systems Review of Systems Systems Reviewed: All systems reviewed, normal except as documented Musculoskeletal Comments: Bilateral lower extremity edema Exam Vital Signs Temp Pulse Resp BP Pulse Ox O2 Del Method O2 Flow Rate 97.1 F 74 23 H 137/79 H 96 Nasal Cannula 1 07/23/24 08:00 07/23/24 08:18 07/23/24 08:00 07/23/24 08:18 07/23/24 08:00 07/23/24 08:00 07/23/24 08:00 Narrative Gen: No acute distress HEENT: NCAT, PERRLOU, Sclera anicteric, conjunctiva noninjected, oral mucosa moist without erythema Neck: Supple, full range of motion, no LAD CV: RRR, no murmurs, rubs or gallops Resp: CTAB/L, no wheezing, rhonchi or rales GI: abdomen soft, bowel sounds noted, no tenderness to palpation, no guarding or rebound tenderness, no organomegaly Skin: clean, dry, no rashes, lesions or ecchymosis Ext: 2+ pitting edema of bilateral lower extremities extending to mid brooks Neuro: A&O x3, CN II- XII intact b/l, no focal neurological deficits Objective - Hospitalist Labs Diagram: 07/23/24 04:15 07/23/24 04:15 Labs: Laboratory Results - last 24 hr 07/22/24 07/23/24 23:15 04:15 WBC 7.0 RBC 3.39 L Hgb 8.9 L Hct 29.0 L MCV 86 MCH 26.3 MCHC 30.7 L RDW Std Deviation 44.5 Plt Count 296 D Neut % (Auto) 66 Lymph % (Auto) 18 [place] % (Auto) 10 Eos % (Auto) 6 Baso % (Auto) 1 Neut # (Auto) 4.6 Lymph # (Auto) 1.2 [place] # (Auto) 0.7 Eos # (Auto) 0.4 Baso # (Auto) 0.0 Immature Gran # (Auto) 0.02 H Absolute Nucleated RBC 0.00 Immature Gran % 0 Nucleated RBC % 0 Sodium 141 Potassium 3.6 Chloride 106 Carbon Dioxide 27.0 Anion Gap 8 BUN 30 H Creatinine 1.2 Estim Creat Clear Calc 40.3 L eGFR 50 L BUN/Creatinine Ratio 25 H Glucose 120 H Calculated Osmolality 288 Calcium 9.1 Corrected Calcium 9.6 Phosphorus 3.3 Magnesium 2.0 Total Bilirubin 0.5 AST 15 ALT 23 Alkaline Phosphatase 137 H Total Protein 5.9 Albumin 3.4 Globulin 2.5 Albumin/Globulin Ratio 1.4 Ur Collection Type Catheter Urine Color Yellow Urine Clarity Clear Urine pH 5.0 Ur Specific [place] 1.013 Urine Protein 1+ A Urine Glucose (UA) Negative Urine Ketones Negative Urine Blood 2+ A Urine Nitrite Negative Urine Bilirubin Negative Urine Urobilinogen (Auto) Negative Ur Leukocyte Esterase Positive Urine RBC 36 H Urine WBC 23 H Ur Squamous Epith Cells 4 Urine Bacteria Rare Hyaline Casts 2 H Ur Culture Indicated? 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 Dennis. Patient currently does not have a PCP but is scheduled to have a visit to establish care with [facility] on 07/26. Patient presented today with a chief complaint of chest pain and SOB.Patient will be admitted to the floors for workup and management of NSTEMI type I versus type II and hypertensive emergency. Cardiology was consulted for NSTEMI. 1. Acute respiratory failure with hypoxia?resolving Secondary to 2. New onset decompensated severe systolic congestive heart failure with reduced ejection fraction exacerbation [30-35%] Patient presented with a history of chest pain, central, squeezing, 10/10 in severity, no radiation or diaphoresis but associated with palpitations and dizziness. After presentation to the hospital the chest pain subsided but then again resumed now intermittent. On exam patient had decreased air entry throughout all lung jackson B/L with scattered crackles at the bases. She also had 4+ lower extremity edema up to hips B/L with sacral edema. NYHA class C stage IV EKG was significant for sinus rhythm, rate 98, Q waves in inferior leads and no acute ST changes. Chest x-ray was significant for bibasilar pleural effusion as well as bilateral pulmonary edema. Repeat EKG this a.m. showed sinus rhythm, rate 90 with Q waves in inferior leads. No acute ST changes Overnight from telemetry review patient rate between 70s?80s with occasional PVCs. Transthoracic echogram completed on 07/19/2024 findings include: Normal LV size. Severe systolic dysfunction. Severe global hypokinesis. Estimated EF 30-35% Normal RV size and function. Estimated RVSP 39mmHg. Moderate MR. Mild TR. Trace AI. Pleural effusion present. Combination Man, Dr. Britt recommended no need for angiogram as patient chest pain has resolved and she had a recent stent. He thinks his near chest pain is likely due to medication noncompliance. With regards to the echo findings he recommended to start patient on Lasix 20 Mg p.o. daily. Plan: ? Strict input output charting ? 1500 cc fluid restriction per day ? 2 g sodium restricted diet ? Daily weights -Increase Lasix to 40 mg IV twice daily as patient had about net negative 450 cc of output overnight only and continues to be edematous in bilateral lower extremities - Continue with carvedilol 3.125 mg p.o. twice daily. Started on valsartan hand 40 mg p.o. daily for goal-directed medical therapy. Patient will need Aldactone once blood pressure permits. ? Cardiology, Dr. Britt consulted. Appreciate recommendations 3. Altered mental status, likely 2/2 hospital delirium - Resolved This a.m. patient was only oriented to self and thought she was in a restaurant. She kept asking to go back to her room. DDx: Hospital induced delirium, acute metabolic encephalopathy, dementia, dehydration, medication side effect Plan: - Discontinued morphine ? General Measures including sleep hygiene, keeping lights on during the day and room dark and free of noises at night. ? [place] catheter removed ? UA negative 4. ACS?resolved 5. NSTEMI likely type II 6. CAD s/p BENNETT (06.07.24) 7. HLD Patient presented with a history of chest pain, central, squeezing, 10/10 in severity, no radiation or diaphoresis but associated with palpitations and dizziness. After presentation to the hospital the chest pain subsided but then again resumed now intermittent. EKG was significant for sinus rhythm, rate 98, Q waves in inferior leads and no acute ST changes. Chest x-ray was significant for bibasilar pleural effusion as well as bilateral pulmonary edema. Patient had HI 06/07/2024 and received PCI with BENNETT placement at [facility] by Dr. Dennis. Patient's home medication aspirin 81 Mg p.o. daily, Brilinta 90 Mg p.o. twice daily and atorvastatin 40 Mg p.o. at bedtime. Troponin down trended to 0.408 from 0.445 TSH 6.58 and HbA1c 8.3% K4 and Mg 2.3. Etiology possibly type II in setting of hypertensive emergency. Patient states that she has been compliant with her aspirin and Brilinta so likelihood of stent thrombosis and type I NSTEMI less likely. Patient endorses resolution of her chest pain and only complains of mild SOB on exertion this a.m. Plan: ? Continue home medication ASA 81 Mg p.o. daily and Brilinta 90 Mg p.o. twice daily and lipitor 40mg PO daily ? Dr. Britt, cardiology consulted. Appreciate recommendations 8. Hypertensive emergency?resolved 9. Essential HTN On admission patient's BP 201/166 and she received hydralazine 10 Mg IV x 1 and Lasix 20 Mg IV x 1 after which BP improved to 171/98. Patient's ongoing chest pain, NSTEMI and troponinemia signs of end organ damage which would indicate hypertensive emergency and not urgency. Patient endorses resolution of her chest pain and only complains of mild SOB on exertion this a.m. Currently BP 144/86 Plan: ? Continue to monitor BP ? Hydralazine 10 Mg IV every 6 hourly as needed if SBP >170 - continue isosorbide monontrate 30mg PO daily, carvedilol 3.125mg PO BID and started on valsartan 40mg PO daily 10. [id number] diabetes mellitus type 2 Patient does not appear to be on any home medication and no recent HbA1c seen on file HbA1c on this admission 8.3% Plan: ? Insulin sliding scale to cover for any blood glucose spikes 11. GABY on CKD stage IIIb Patient reports that she has a history of kidney disease but not sure of her baseline kidney function. On admission her CR was 1.2, currently up trended to 1.4 Worsening of kidney function most likely due to diuresis IV Plan: ? Avoid nephrotoxic agent ? Renally dose medication 12. Normocytic anemia No previous labs available for comparison. On admission Hb 10.2 down trended to 8.9 Etiology: Iron deficiency anemia, blood loss, peptic ulcer disease, anemia of chronic disease secondary to chronic kidney disease, lead poisoning. Plan: ? Will consider ordering full anemia workup once workup for possible new onset CHF and NSTEMI completed. 13. Elevated TSH TSH elevated at 6.58 and T4 normal at 1.4 DDx: Subclinical hypothyroidism, in the setting of CHF exacerbation, elderly age, medication side effect Plan: ? Recommend repeat thyroid function test in 6 weeks as outpatient with your PCP 14. Elevated ALP On admission ALP elevated at 179 currently down trended to 146. This may be from hepatic congestion and resulting of severe systolic congestive heart failure exacerbation. Plan: ? Continue to trend liver function tests Health maintenance: Disposition: IV Diuresis for CHF exacerbation. Pending urinalysis. Sleep hygiene and general measures for likely hospital induced delirium. Diet: Cardiac Lines: pIVs GI Prophylaxis: Protonix Thrombo Prophylaxis: heparin 5000 units q8h Code status: FULL CODE Time Spent with Patient Time: Total time spent is greater than 50% in coordination of care (as documented) at patient's floor/unit and/or counseling patient: 30min Time with patient: 25 - 35 minutes Reason for Continued Stay Reason for continued stay: continue IV diuretic Quality Measures Quality Measures VTE prophylaxis Advance care planning discussed with:: patient
[2024-07-23] MEDS: INSULIN LISPRO (AdmeLOG) 1 UNIT/0.01 ML UNIT SC ×3 (11:45→20:39)
[2024-07-23] MEDS: HEPARIN SOD INJ 5000 UNIT/ML VIAL SC ×2 (14:40→21:04)
[2024-07-23] MEDS: ATORVASTATIN CALCIUM 20 MG TABLET 40 MG PO (20:40)
[2024-07-24] VITALS (12 sets, daily range): BP systolic 96–138; BP diastolic 52–81; PULSE 61–76; RESP 18–26; TEMP 36.1–36.4; O2SAT 94–97; BMI 24.2
--- NOTE | 2024-07-24 01:00 | PC.NURSE ---
Called to patients room, noted patients oxygen sats at 78% RA. Oxygen [address] patient[address] Oxygen sats came up to 94%. Patient in no distress. Will monitor further.
[2024-07-24] MEDS: HEPARIN SOD INJ 5000 UNIT/ML VIAL SC ×2 (05:45→14:31)
[2024-07-24] MEDS: FUROSEMIDE INJ 10 MG/ML 4ML VIAL 40 MG IVP ×2 (05:58→17:38)
[2024-07-24 06:50] LABS: Basophils % (Auto) 1 % (0-2.5); Eosinophils # (Auto) 0.4 Thou/mm3 (0.0-0.5); Eosinophils % (Auto) 6 % (0-10); Hematocrit 28.2 % (36.0-46.0); Immature Granulocytes % (Auto) 1 % (0-0); Immature Granulocytes Auto 0.03 Thou/mm3 (0.00-0.00); Lymphocytes # (Auto) 1.3 Thou/mm3 (1.0-4.8); Lymphocytes % (Auto) 20 % (10-50); Mean Corpuscular HGB Conc 31.2 g/dl (31.0-37.0); Mean Corpuscular Hemoglobin 26.6 pg (25.0-35.0); Mean Corpuscular Volume 85 fL (80-100); Monocytes # (Auto) 0.7 Thou/mm3 (0.0-0.8); Monocytes % (Auto) 11 % (0-12); Neutrophils % (Auto) 63 % (37-80); Nucleated Red Blood Cell % 0 /100 WBC (0); Platelet Count 305 Thou/mm3 (140-440); RDW Standard Deviation 44.2 fL (36.4-46.3); Red Blood Count 3.31 Miln/mm3 (4.00-5.20); White Blood Count 6.3 Thou/mm3 (3.6-11.0)
[2024-07-24 07:15] LABS: Alanine Aminotransferase 20 U/L (10-49); Albumin, Serum 3.2 gm/dL (3.4-4.8); Albumin/Globulin Ratio 1.3 (1.2-2.2); Alkaline Phosphatase 125 U/L (46-116); Anion Gap 10 (7-16); Aspartate Amino Transferase 15 U/L (0-34); BUN/Creatinine Ratio 26 Ratio (12-20); Bilirubin,Total 0.4 mg/dL (0.3-1.2); Blood Urea Nitrogen 31 mg/dL (9-23); Calcium 8.7 mg/dL (8.3-10.6); Calcium (Corrected) 9.3 mg/dL (8.5-10.1); Chloride 105 mMol/L (98-107); Creatinine (Component) 1.2 mg/dL (0.6-1.3); Estimated Creatinine Clearance 34.7 mL/min (>60); Globulin 2.4 gm/dL (2.3-3.5); Glucose 82 mg/dL (74-106); Magnesium 1.7 mg/dL (1.6-2.6); Osmolality,Calculated 284 (275-295); Phosphorous 3.5 mg/dL (2.4-5.1); Potassium 3.2 mMol/L (3.4-5.1); Sodium 140 mMol/L (136-145); Total Protein 5.6 gm/dL (5.7-8.2); eGFR 50 See Note
[2024-07-24 07:16] LABS: Hemoglobin 8.8 g/dL (12.0-16.0)
[2024-07-24] MEDS: ISOSORBIDE ER MONONITRATE 30 MG TABCR PO (08:01)
[2024-07-24] MEDS: POTASSIUM CHLORIDE 20 mEq TABCR 40 MEQ PO (08:01)
[2024-07-24] MEDS: Magnesium Sulfate 2 GM Ivpb 2 GM/50 ML BAG IV (08:01)
[2024-07-24] MEDS: PANTOPRAZOLE 40 MG TABLET PO (08:03)
[2024-07-24] MEDS: SENNA TABLET 1 TAB PO (08:03)
[2024-07-24] MEDS: carVEDILOL 3.125 MG TABLET PO ×2 (08:03→16:52)
[2024-07-24] MEDS: VALSARTAN 40 MG TABLET PO (08:03)
[2024-07-24] MEDS: ASPIRIN EC 81 MG TABEC PO (08:03)
[2024-07-24] MEDS: TICAGRELOR 90 MG TABLET PO ×2 (08:03→20:19)
--- NOTE | 2024-07-24 11:41 | PC.CM ---
Addendum entered by Han Waddell RN 07/24/24 12:05: Informed SS that per SS notes, pt doesn't' have PCP. That is why unable to setup HH for the pt. SS stated he will speak to the family. Original Note: Per SS notes Patient reports she does not have PCP, she reports she just moved to [place] from another town.
[2024-07-24] MEDS: INSULIN LISPRO (AdmeLOG) 1 UNIT/0.01 ML UNIT SC ×2 (12:07→16:52)
--- NOTE | 2024-07-24 12:13 | PC.SS ---
SI[employer] followed up with pt due to nurse jenni needing to see who is the pcp of pt in order for Jenni to do HH orders, SIZING [employer]ER spoke to pt and pt's daughter and daughter stated that pt never had a pcp but has an appt on Friday at [facility]. [employer]ING [employer]ER followed up with Jenni.
--- NOTE | 2024-07-24 15:16 | ESPR_ITS ---
Documentation for date of: 07/24/24 Subjective Subjective Interval history: Patient was seen and examined at the bedside. He patient appears more better than yesterday however continues to have mild confusion. Patient did not show good diuresis output on Lasix. Bladder scan showed urinary retention 300 cc therefore we will do a straight In-N-Out catheter if she retains more than 400 cc. Bladder training. Added tamsulosin 0.4 mg at bedtime to help with urinary tension. Will keep her from in 1 day to diurese 1 more day and await her improvement in mentation. Will likely discharge on goal-directed medical therapy. All labs and orders were reviewed. Exam Vital Signs Temp Pulse Resp BP Pulse Ox O2 Del Method O2 Flow Rate 97.5 F 69 23 H 120/72 97 Nasal Cannula 1 07/24/24 12:00 07/24/24 12:00 07/24/24 12:00 07/24/24 12:00 07/24/24 12:00 07/24/24 12:00 07/24/24 12:00 Narrative Exam GENERAL APPEARANCE: Patient is AAO x [address] saturating well on room air HEENT: NC, AT. MMM. EOMI, clear conjunctiva, oropharynx clear. NECK: Supple without lymphadenopathy. No stiffness or restricted ROM. HEART: Regular rate and regular rhythm, normal S1/S2, no m/r/g LUNGS: CTAB, moving air well. No crackles or wheezes are heard. ABDOMEN: Soft, nontender, nondistended with good bowel sounds heard. BACK: No CVAT, no obvious deformity. EXTREMITIES: Trace edema in both lower extremities. NEUROLOGICAL: Grossly nonfocal. Alert and oriented, moving all 4 extremities. CN not formally tested but appear grossly intact. Skin: Warm and dry without any rash. Psych mildly confused however cooperative Objective Labs 07/24/24 05:47 07/25/24 10:08 Labs: Laboratory Results - last 24 hr 07/24/24 05:47 WBC 6.3 RBC 3.31 L Hgb 8.8 L Hct 28.2 L MCV 85 MCH 26.6 MCHC 31.2 RDW Std Deviation 44.2 Plt Count 305 Neut % (Auto) 63 Lymph % (Auto) 20 Hitchcock % (Auto) 11 Eos % (Auto) 6 Baso % (Auto) 1 Neut # (Auto) 4.0 Lymph # (Auto) 1.3 Hitchcock # (Auto) 0.7 Eos # (Auto) 0.4 Baso # (Auto) 0.0 Immature Gran # (Auto) 0.03 H Absolute Nucleated RBC 0.00 Immature Gran % 1 H Nucleated RBC % 0 Sodium 140 Potassium 3.2 L Chloride 105 Carbon Dioxide 25.0 Anion Gap 10 BUN 31 H Creatinine 1.2 Estim Creat Clear Calc 34.7 L eGFR 50 L BUN/Creatinine Ratio 26 H Glucose 82 Calculated Osmolality 284 Calcium 8.7 Corrected Calcium 9.3 Phosphorus 3.5 Magnesium 1.7 Total Bilirubin 0.4 AST 15 ALT 20 Alkaline Phosphatase 125 H Total Protein 5.6 L Albumin 3.2 L Globulin 2.4 Albumin/Globulin Ratio 1.3 Quality Measures Quality Measures VTE prophylaxis Advance care planning discussed with:: other Assessment & Plan Assessment Current Active Medications: Generic Name Dose Route Start Last Admin Trade Name Freq PRN Reason Stop Dose Admin Acetaminophen 650 mg 07/19/24 18:06 Acetaminophen 325 Mg Tablet PO 08/18/24 18:05 Q6H PRN Fever >101.5 Hydrocodone Bitart/Acetaminophen 1 tab 07/19/24 18:06 07/19/24 19:53 Hydrocodone/Apap 5/325 Tablet PO 07/24/24 18:05 1 tab Q4HR PRN Administration PAIN SCALE 4-10(Mod-Sev Albuterol/Ipratropium 3 ml 07/19/24 18:06 Albuterol/Ipratropium (Duoneb) Rt Jessica 3 Ml Nebu INH 08/18/24 18:05 Q4HR PRN Wheeze Aspirin 81 mg 07/19/24 18:30 07/24/24 08:03 Aspirin Ec 81 Mg Tabec PO 08/18/24 18:29 81 mg QDAY MAXIME Administration Atorvastatin Calcium 40 mg 07/19/24 21:00 07/23/24 20:40 Atorvastatin Calcium 20 Mg Tablet PO 08/18/24 20:59 40 mg HS MAXIME Administration Carvedilol 3.125 mg 07/21/24 17:30 07/24/24 08:03 Carvedilol 3.125 Mg Tablet PO 08/20/24 17:29 3.125 mg BIDWM MAXIME Administration Dextrose 25 ml 07/19/24 18:18 Dextrose 50%-Water Inj 50 Ml Syringe IV 08/18/24 18:17 Q15MIN PRN BG 50-70 responsive npo pt Dextrose 50 ml 07/19/24 18:18 Dextrose 50%-Water Inj 50 Ml Syringe IV 08/18/24 18:17 Q15MIN PRN BG <50 OR BG <70 & pt unresponsive Furosemide 40 mg 07/23/24 18:00 07/24/24 05:58 Furosemide Inj 10 Mg/Ml 4ml Vial IVP 08/22/24 17:59 40 mg BIDD MAXIME Administration Glucagon 1 mg 07/19/24 18:18 Glucagon Inj 1 Mg Vial IM Q15MIN PRN BG <70, and no IV access Heparin Sodium (Porcine) 5,000 unit 07/23/24 14:00 07/24/24 14:31 Heparin Sod Inj 5000 Unit/Ml Vial SC 08/06/24 13:59 5,000 unit Q8HR MAXIME Administration Hydralazine HCl 10 mg 07/21/24 11:45 Hydralazine Inj 20 Mg/Ml Vial IV 08/18/24 18:18 Q6H PRN SBP > 170 Insulin Human Lispro 0 unit 07/19/24 21:00 07/24/24 12:07 Insulin Lispro (Admelog) 1 Unit/0.01 Ml Unit SC 08/18/24 20:59 2 unit ACHS MAXIME Administration Protocol Isosorbide Mononitrate 30 mg 07/20/24 09:00 07/24/24 08:01 Isosorbide Er Mononitrate 30 Mg Tabcr PO 08/19/24 08:59 30 mg QDAY MAXIME Administration Ondansetron HCl 4 mg 07/19/24 18:06 Ondansetron Inj 2 Mg/Ml Inj 2 Ml IV 08/18/24 18:05 Q6H PRN NAUSEA OR VOMITING Protocol Pantoprazole Sodium 40 mg 07/19/24 18:15 07/24/24 08:03 Pantoprazole 40 Mg Tablet PO 08/18/24 18:14 40 mg QDAY MAXIME Administration Sennosides 1 tab 07/20/24 09:00 07/24/24 08:03 Senna Tablet PO 08/19/24 08:59 1 tab QDAY MAXIME Administration Protocol Ticagrelor 90 mg 07/19/24 21:00 07/24/24 08:03 Ticagrelor 90 Mg Tablet PO 08/18/24 20:59 90 mg BID MAXIME Administration Valsartan 40 mg 07/24/24 09:00 07/24/24 08:03 Valsartan 40 Mg Tablet PO 08/23/24 08:59 40 mg QDAY MAXIME Administration Plan Patient is a 64-year-old female with a past medical history significant for essential hypertension, NIDDM type II, hyperlipidemia, CKD stage III A, 2 previous strokes on July 08/2024, history of LA, CAD s/p BENNETT on 07/08/2024 and [facility] by kinesiology professor Dr. Dennis. Patient currently does not have a PCP but is scheduled to have a visit to establish care with [facility] on 07/26. Patient presented today with a chief complaint of chest pain and SOB.Patient will be admitted to the floors for workup and management of NSTEMI type I versus type II and hypertensive emergency. Cardiology was consulted for NSTEMI. #Acute respiratory failure with hypoxia?resolving Secondary to new onset decompensated severe systolic congestive heart failure with reduced ejection fraction exacerbation [30-35%] Patient presented with a history of chest pain, central, squeezing, 10/10 in severity, no radiation or diaphoresis but associated with palpitations and dizziness. After presentation to the hospital the chest pain subsided but then again resumed now intermittent. On exam patient had decreased air entry throughout all lung jackson B/L with scattered crackles at the bases. She also had 4+ lower extremity edema up to hips B/L with sacral edema. NYHA class C stage IV EKG was significant for sinus rhythm, rate 98, Q waves in inferior leads and no acute ST changes. Chest x-ray was significant for bibasilar pleural effusion as well as bilateral pulmonary edema. Repeat EKG this a.m. showed sinus rhythm, rate 90 with Q waves in inferior leads. No acute ST changes Overnight from telemetry review patient rate between 70s?80s with occasional PVCs. Transthoracic echogram completed on 07/19/2024 findings include: Normal LV size. Severe systolic dysfunction. Severe global hypokinesis. Estimated EF 30-35% Normal RV size and function. Estimated RVSP 39mmHg. Moderate MR. Mild TR. Trace AI. Pleural effusion present. Roofer Assistant, Dr. Britt recommended no need for angiogram as patient chest pain has resolved and she had a recent stent. He thinks his near chest pain is likely due to medication noncompliance. With regards to the echo findings he recommended to start patient on Lasix 20 Mg p.o. daily. Plan: ? Continue Lasix 40 mg IV twice daily however patient is not showing good diuresis output and has trace edema both lower extremities ? Straight cath if retaining urine more than 400 cc bladder scan Q4 hourly ? Continue carvedilol 3.125 mg twice daily and continuing valsartan 40 mg p.o. daily. Will likely add Aldactone if blood pressure permits. ? Cardiology Dr. Britt following the case ? Strict input output charting ? 1500 cc fluid restriction per day ? 2 g sodium restricted diet ? Daily weights # Altered mental status, likely 2/2 hospital delirium - Resolved Patient continues to have mild confusion however alert and oriented more than yesterday. DDx: Hospital induced delirium, acute metabolic encephalopathy, dementia, dehydration, medication side effect Plan: - Discontinued morphine ? General Measures including sleep hygiene, keeping lights on during the day and room dark and free of noises at night. ? Ballesteros catheter removed ? Straight catheter if urine retention more than 400 cc in bladder scan Q4 hourly ? UA negative # Urinary retention ? DDx: Dementia versus bladder dysfunction Plan: ? Added tamsulosin 0.4 mg at bedtime ? Straight catheter in and out for urine retention more than 400 cc ? Bladder training ? Voiding trial # ACS?resolved # NSTEMI likely type II # CAD s/p BENNETT (06.07.24) # HLD Patient presented with a history of chest pain, central, squeezing, 10/10 in severity, no radiation or diaphoresis but associated with palpitations and dizziness. After presentation to the hospital the chest pain subsided but then again resumed now intermittent. EKG was significant for sinus rhythm, rate 98, Q waves in inferior leads and no acute ST changes. Chest x-ray was significant for bibasilar pleural effusion as well as bilateral pulmonary edema. Patient had LA 06/07/2024 and received PCI with BENNETT placement at [facility] by Dr. Dennis. Patient's home medication aspirin 81 Mg p.o. daily, Brilinta 90 Mg p.o. twice daily and atorvastatin 40 Mg p.o. at bedtime. Troponin down trended to 0.408 from 0.445 TSH 6.58 and HbA1c 8.3% K4 and Mg 2.3. Etiology possibly type II in setting of hypertensive emergency. Patient states that she has been compliant with her aspirin and Brilinta so likelihood of stent thrombosis and type I NSTEMI less likely. Patient endorses resolution of her chest pain and only complains of mild SOB on exertion this a.m. Plan: ? Continue home medication ASA 81 Mg p.o. daily and Brilinta 90 Mg p.o. twice daily and lipitor 40mg PO daily ? Dr. Britt, cardiology consulted. Appreciate recommendations # Electrolyte disturbance # Hypokalemia Plan ? Replete electrolytes as needed ? Repleted KCl 40M EQ x 1 # Hypertensive emergency?resolved # Essential HTN On admission patient's BP 201/166 and she received hydralazine 10 Mg IV x 1 and Lasix 20 Mg IV x 1 after which BP improved to 171/98. Patient's ongoing chest pain, NSTEMI and troponinemia signs of end organ damage which would indicate hypertensive emergency and not urgency. Patient endorses resolution of her chest pain and only complains of mild SOB on exertion this a.m. Currently BP 144/86 Plan: ? Continue to monitor BP ? Hydralazine 10 Mg IV every 6 hourly as needed if SBP >170 - continue isosorbide monontrate 30mg PO daily, carvedilol 3.125mg PO BID and started on valsartan 40mg PO daily # [id number] diabetes mellitus type 2 Patient does not appear to be on any home medication and no recent HbA1c seen on file HbA1c on this admission 8.3% Plan: ? Insulin sliding scale to cover for any blood glucose spikes # GABY on CKD stage IIIb Patient reports that she has a history of kidney disease but not sure of her baseline kidney function. On admission her CR was 1.2, Kidney functions improved to 1.2 Plan: ? Avoid nephrotoxic agent ? Renally dose medication ?Strict RIGO's ? Follow-up with renal panel #Normocytic anemia No previous labs available for comparison. On admission Hb 10.2 down trended to 8.9 Etiology: Iron deficiency anemia, blood loss, peptic ulcer disease, anemia of chronic disease secondary to chronic kidney disease, lead poisoning. Plan: ? Follow-up with CBC ? PRBC if hemoglobin drop below 7 #Elevated TSH TSH elevated at 6.58 and T4 normal at 1.4 DDx: Subclinical hypothyroidism, in the setting of CHF exacerbation, elderly age, medication side effect Plan: ? Recommend repeat thyroid function test in 6 weeks as outpatient with your PCP #Elevated ALP On admission ALP elevated at 179 currently down trended to 146. This may be from hepatic congestion and resulting of severe systolic congestive heart failure exacerbation. Plan: ? Continue to trend liver function test Health maintenance: Diet: Cardiac Lines: pIVs GI Prophylaxis: Protonix Thrombo Prophylaxis: heparin 5000 units q8h Code status: FULL CODE Disposition: IV Diuresis for CHF exacerbation. UA was negative. Sleep hygiene and general measures for likely hospital induced delirium. Anticipating discharge tomorrow keeping her for 1 more day for IV diuresis. Patient was seen and discussed with attending physician, Dr. Genevieve Phelps MD, PGY 2 Attending Provider Attestation/Addendum I, Saritha Vallejo, , attest that I was physically present for the hathaway portions of the service and evaluated the patient with the resident and I reviewed and discussed the case with the resident and agree with the resident's findings and plans of care as documented above Patient seen and evaluated this AM. She states she is feeling well. Daughter and grandson are at bedside. They state that the patient has been living in [place] until her health declined last month on 06/25. Patient suffered from a heart attack and has since moved in with her daughter here in [place]. Daughter states she does not have a PCP here in town since moving, nor has she followed up with a kinesiology professor. Will refer patient to [facility] upon discharge to arrange for referrals and continuity of care. Patient is comfortable on room air. Will continue with IV diuresis as she continues to have 1+ pitting edema in b/l LE up to her shins, improved from yesterday. Anticipate DC within next 24hrs if patient edema continues to improve.
[2024-07-24] MEDS: ATORVASTATIN CALCIUM 20 MG TABLET 40 MG PO (20:19)
[2024-07-24] MEDS: TAMSULOSIN HCL 0.4 MG CAPSULE PO (20:19)
[2024-07-25] VITALS (10 sets, daily range): BP systolic 112–131; BP diastolic 64–85; PULSE 66–101; RESP 17–23; TEMP 35.9–36.2; O2SAT 93–99; BMI 23.3
--- NOTE | 2024-07-25 02:31 | PC.NURSE ---
Voided 250 cc at the bedside commode.
[2024-07-25] MEDS: FUROSEMIDE INJ 10 MG/ML 4ML VIAL 40 MG IVP (05:07)
[2024-07-25] MEDS: HEPARIN SOD INJ 5000 UNIT/ML VIAL SC ×2 (05:21→14:07)
[2024-07-25] MEDS: Magnesium Sulfate 4 GM Ivpb 4 GM/50 ML BAG IV (07:55)
[2024-07-25] MEDS: POTASSIUM CHLORIDE 20 mEq TABCR 40 MEQ PO (07:55)
[2024-07-25] MEDS: carVEDILOL 3.125 MG TABLET PO (07:55)
[2024-07-25] MEDS: PANTOPRAZOLE 40 MG TABLET PO (09:36)
[2024-07-25] MEDS: VALSARTAN 40 MG TABLET PO (09:36)
[2024-07-25] MEDS: ISOSORBIDE ER MONONITRATE 30 MG TABCR PO (09:36)
[2024-07-25] MEDS: TICAGRELOR 90 MG TABLET PO (09:36)
[2024-07-25] MEDS: ASPIRIN EC 81 MG TABEC PO (09:36)
[2024-07-25] MEDS: SENNA TABLET 1 TAB PO (09:36)
--- NOTE | 2024-07-25 09:48 | ESDS_ITS ---
<Statement entered by Saritha Vallejo DO - 07/25/24 14:05> I, Saritha Vallejo DO, attest that I was physically present for the hathaway portions of the service and evaluated the patient with the resident and I reviewed and discussed the case with the resident and agree with the resident's findings and plans of care as documented above <Statement entered by Reynaldo Phelps MD - 07/25/24 13:26> I saw and examined the patient, and I agree with current management stated by Dr Kiana MD,PGY1. Plan of care was discussed with the attending physician and resident physician. Disclaimer: Despite multiple revisions, due to the dictation software being used, the document bellow may not be free of grammatical errors including phonetic/typographic errors. However, this does not deter from our commitment to providing health care in the patient's best interest in mind. Dr. Mattie MD, PGY 2 Planned Discharge Date 07/25/24 DS: Providers Provider Date of admission: 07/19/24 18:06 Primary care physician: Physician No Primary/Family Admitting Provider: Jewel Bruno MD Attending Provider on Admission: Derek Bray DO Consults: 07/19/24 16:58 Consult to Cardiology Stat Comment: Consulting Provider: Marcelino Britt 07/20/24 09:49 PT [Referral Physical Therapy] Routine Comment: Physician Instructions: Instructions: Uses a walker at home. 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 Patient currently does not have a PCP but is scheduled to have a visit to [facility]. Patient presented today with a chief complaint of chest pain and SOB.Patient will be admitted to the floors for workup and management of NSTEMI type I versus type II and hypertensive emergency. Cardiology was consulted for NSTEMI. With regards to her hypertensive emergency patient's BP was 201/166 in the ED after which the ED providers administered hydralazine 10 Mg IV x 1, Lasix 20 Mg IV x 1 after which BP improved to 171/98. Her blood pressure was gradually lowered over the next day and she is currently normotensive. NSTEMI was likely type II due to hypertensive emergency. Cardiology, Dr. Britt was consulted who recommended to continue patient's home medication aspirin and Brilinta with no need for heparin infusion or angiogram/angioplasty. She had a recent stent and he thinks her chest pain is likely due to medication noncompliance. Patient's chest pain subsequently resolved during hospitalization. Patient was hypoxic requiring supplemental oxygen, also she had significant lower extremity edema up to her hips as well as crackles. Mid to lower zones bilaterally. Her Chest x-ray showed moderate B/L pleural effusion as well as B/L pulmonary edema. Transthoracic echocardiogram was subsequently ordered. Transthoracic echocardiogram completed on 07/19/2024 findings include: Normal LV size. Severe systolic dysfunction. Severe global hypokinesis. Estimated EF 30-35% Normal RV size and function. Estimated RVSP 39mmHg. Moderate MR. Mild TR. Trace AI. Pleural effusion present. She was subsequently diagnosed with severe systolic congestive heart failure with reduced ejection fraction [30-35%]. She was diuresed with Lasix 40 Mg IV twice daily and had a fluid balance of approximately -3 L during her hospital stay. She was also started on valsartan and Coreg as part of GDMT for heart failure. She is now saturating on room air. Patient still has episodes of hypoxia while sleeping which may possibly be due to undiagnosed WILFREDO, she will need a sleep study as outpatient. During hospitalization patient developed hospital induced delirium on top of her baseline dementia. Her grandson and daughter, Courtney reported that for the past few months she has become more forgetful and needs intermittent reorientation after surroundings as well. General measures such as sleep hygiene and limiting noises in her room were in place and her mentation gradually improved during hospitalization. She is always oriented to person and can be reoriented to place and time. For her normocytic anemia and elevated TSH patient will follow-up with her primary care for repeat labs in 6 weeks and further investigation. Discharge diagnoses: 1. Acute respiratory failure with hypoxia?resolving 2. New onset decompensated severe systolic congestive heart failure with reduced ejection fraction [30-35%] 3. Hospital induced delirium?resolved 4. Urinary retention?resolved 5. ACS?resolved 6. NSTEMI likely type II 7. CAD s/p BENNETT [06/07/2024] 8. Hyperlipidemia 9. Hypokalemia?resolved 10. Hypertensive emergency?resolved 11. Essential hypertension 12. Yqs-pyobtvb-mueyaercv diabetes mellitus type 2 13. GABY on CKD stage IIIb?resolved 14. Normocytic anemia 15. Elevated TSH 16. Elevated ALP Discharge plan: - We have discontinued two of your home medications. Please stop taking metoprolol and doxycycline - Please get a blood pressure machine and monitor your blood pressure daily and make a record to carry to your PCP. - You have been started on a medication Coreg as part of your heart failure management. Take 1 tablet 2 times a day. - You have been started on a medication Lasix for your heart failure, this will make you pee. Please monitor your blood pressure at home and take 1 tablet twice a day. If your blood pressure is less than 90/60 please do not take your dose for that day. - You have been started on Entresto for your heart failure please take 1 tablet twice daily. You have been started on a medication Jardiance for your diabetes. Please take 1 tablet once a day. - Continue to take the rest of your medication as before. - Monitor your weight daily as well, if you gain more than 5-10 pounds in one day, take an extra dose of lasix or call your primary doctor. - Please follow a 2G / day salt restricted diet. - Please follow a 1.5 L / 50 Oz a day fluid restriction. Do not drink more than that to prevent swelling. - Please follow-up with your primary doctor within 1 week of discharge. - Please follow-up with cardiology clinic within 1 week of discharge, may need a referral from primary doctor. - Please follow with your primary doctor for a referral to see a neurologist for your dementia/ memory problems - If you experience any new, persistent or worsening symptoms either call your primary doctor or dial 911 or present to the emergency department. We are grateful to be able to participate in Ms. Brewer's care. We wish her the best. Plan of care discussed with Attending Dr. Vallejo and PGY2 Dr. Mattie Bruno MD PGY 1 Time Spent with Patient Time attestation: Total time spent providing and/or coordinating discharge services: Time spent: Greater than 30 minutes (36) Home Health Home Health Referral Orders: 07/24/24 10:00 Home Health Referral Routine Reason For Exam: acute chf exacerbation Home-Bound The patient must either because of illness or injury, need the aid of supportive devices such as crutches, canes, wheelchairs, and walkers; the use of special transportation; or the assistance of another person in order to leave their place of residence; OR have a condition such that leaving his or her home is medically contraindicated. In addition, the patient also meets the following criteria: patient is normally unable to leave the home and leaving home requires considerable taxing effort. Addendum to Home Health Certification Practitioner's Certification: I certify that the patient has been under my care in the hospital and the care of attending physician (see below). We had a iegj-tp-uhlu encounter on (see date below). My clinical findings indicate that the patient is home bound per the above criteria and the Home Health Services noted in these orders are medically necessary. The primary reason for the nkdh-lk-dhke encounter is related to the fact that the patient requires home health services. Date Certifying Esen-uj-Zgkh Physician Encounter: 07/19/24 Physician's Name who will Assume Oversight for HH Services: Physician No Primary/Family LATHER APPRENTICE - Community Resources: No PT to Evaluate: Yes PT to evaluate and provide a treatmnet plan to increase patient's mobility and strength. Wound Care: No IV Therapy: No RN Safety Evaluation: Yes RN to evaluate and create a plan of care that will produce positive outcomes. Palliative Treatment: No Palliative treatment and evaluate the need for hospice. Home Health Aide - Personal Care: Yes Home Health Aide to assist with any ADL's. Exam Vital Signs Temp Pulse Resp BP Pulse Ox O2 Del Method O2 Flow Rate 97 F 77 23 H 131/85 H 93 L Room Air 1 07/25/24 08:00 07/25/24 09:36 07/25/24 08:00 07/25/24 09:36 07/25/24 08:00 07/25/24 08:00 07/25/24 06:09 Narrative Exam Constitutional Alert, oriented x 3 and comfortable. Elderly female HEENT Vision grossly intact. Patent nares. Trachea midline Respiratory Chest normal on inspection and clear auscultation bilaterally Cardiovascular S1 and S2 audible, RRR. No murmurs carotid bruit. No gross JVD. Abdominal Soft and non tender to palpation in all quadrants. BS + Genitourinary No bladder tenderness, no flank pain. Normal to palpation Musculoskeletal Extremities tone within normal limits. 2+ LE edema up to knees B/L Neurological CN II - XII grossly intact. Extremity motor and sensation grossly intact. Skin Warm, dry and intact. No apparent lesions. Psychiatric Patient has good affect, is cooperative Discharge Plan Plan Patient Disposition: Home w/HOME HEALTH Patient condition on transfer: Stable Care Plan Goals: - We have discontinued two of your home medications. Please stop taking metoprolol and doxycycline - Please get a blood pressure machine and monitor your blood pressure daily and make a record to carry to your PCP. - You have been started on a medication Coreg as part of your heart failure management. Take 1 tablet 2 times a day. - You have been started on a medication Lasix for your heart failure, this will make you pee. Please monitor your blood pressure at home and take 1 tablet twice a day. If your blood pressure is less than 90/60 please do not take your dose for that day. - You have been started on Entresto for your heart failure please take 1 tablet twice daily. - You have been started on a medication Jardiance 25 mg for your diabetes. Please take 1 tablet once a day.If kidney functions improve you can see your PCP and switch to Farxiga 10 mg once a day - Continue to take the rest of your medication as before. - Monitor your weight daily as well, if you gain more than 5-10 pounds in one day, take an extra dose of lasix or call your primary doctor. - Please follow a 2G / day salt restricted diet. - Please follow a 1.5 L / 50 Oz a day fluid restriction. Do not drink more than that to prevent swelling. - Please follow-up with your primary doctor within 1 week of discharge. - Please follow-up with cardiology clinic within 1 week of discharge, may need a referral from primary doctor. -- will need referral for sleep study for possible sleep apnea - Please follow with your primary doctor for a referral to see a neurologist for your dementia/ memory problems - If you experience any new, persistent or worsening symptoms either call your primary doctor or dial 911 or present to the emergency department. Prescriptions/Referrals Prescriptions/Med Rec: New carvedilol 3.125 mg Tablet 3.125 mg PO BIDWM 30 Days Qty: 60 0RF sacubitril-valsartan [Entresto] 24-26 mg tablet 1 tab PO BID Qty: 30 0RF Rx Instructions: Hold if SBP drops below 100 and DBP below 60 (DME) Blood Pressure Cuff Misc See Rx Instructions .Route Qty: 1 0RF Rx Instructions: As directed furosemide [Lasix] 40 mg tablet 40 mg PO BID Qty: 60 0RF potassium chloride 20 mEq packet 20 meq PO QDAY Qty: 30 1RF Jardiance 25 mg tablet 25 mg PO QDAY Qty: 30 0RF Continued atorvastatin 40 mg Tablet 40 mg PO QDAY isosorbide mononitrate 30 mg Tablet Extended Release 24 Hr 30 mg PO QDAY aspirin 81 mg Tablet,Chewable 81 mg PO QDAY Brilinta 90 mg Tablet 90 mg PO BID Discontinued doxycycline hyclate 100 mg Capsule 100 mg PO BID metoprolol succinate 25 mg Tablet Extended Release 24 Hr 12.5 mg PO QDAY Referrals: No Primary/Family,Physician [Primary Care Provider] - Malik Alejandre MD [Physician] - Patient/Caregiver Discharge Instructions Discharge Activity: as per physical therapy and activity as tolerated Other Discharge Activity Instructions:: Please f/u with PCP within1 week of discharge. If no PCP, please call for hospital followup at: [facility] [address] [place] [address] Please do not operate any vehicles or heavy machinery Education Materials: What Is Heart Failure, Diabetes and Heart Disease, Low- Salt Choices, Heart Failure: Tracking Your Weight, Coping with Heart Failure, Eating Heart-Healthy Foods, Heart Failure: Know Your Baselines Print Language: Ivorian Stand Alone Forms: Mitzi Darling Info., Patient Portal Info Letter Discharge Order Discharge Orders: Discharge (Routine); Ordered 07/25/24 Ordered By: Jewel Bruno Quality Discharge Quality Measures VTE prophylaxis
[2024-07-25 11:06] LABS: Alanine Aminotransferase 23 U/L (10-49); Albumin, Serum 3.3 gm/dL (3.4-4.8); Albumin/Globulin Ratio 1.2 (1.2-2.2); Alkaline Phosphatase 130 U/L (46-116); Anion Gap 7 (7-16); Aspartate Amino Transferase 18 U/L (0-34); BUN/Creatinine Ratio 18 Ratio (12-20); Bilirubin,Total 0.5 mg/dL (0.3-1.2); Blood Urea Nitrogen 23 mg/dL (9-23); Calcium 8.9 mg/dL (8.3-10.6); Calcium (Corrected) 9.5 mg/dL (8.5-10.1); Carbon Dioxide 29.4 mMol/L (20.0-31.0); Chloride 105 mMol/L (98-107); Creatinine (Component) 1.3 mg/dL (0.6-1.3); Estimated Creatinine Clearance 31.5 mL/min (>60); Globulin 2.7 gm/dL (2.3-3.5); Glucose 159 mg/dL (74-106); Osmolality,Calculated 287 (275-295); Potassium 4.2 mMol/L (3.4-5.1); Sodium 141 mMol/L (136-145); eGFR 45 See Note
--- NOTE | 2024-07-25 11:25 | PC.NURSE ---
Patient desaturated to 82% on room air, an nasal cannula of 2L was applied to the patient and the patient increased to 96% within one minute. Patient has stabilized at 96%-100% while on 2L nasal cannula.
[2024-07-25] MEDS: INSULIN LISPRO (AdmeLOG) 1 UNIT/0.01 ML UNIT SC (12:13)
--- NOTE | 2024-07-25 13:57 | PC.SS ---
WOOD SETTER completed [facility] referral for O2, WOOD SETTER to follow up with [facility] on ETA.
--- NOTE | 2024-07-25 19:01 | PC.CM ---
I informed SS yesterday since pt doesn't have PCP. That is why unable to setup HH for the pt. Pt needs to first make an appt with PCP and then ask PCP for HH referral.
== END 2024-07-25 18:00 | disposition home or self-care (01) | DRG 280 ==
LOC: SERX 16:36 → SERHOLD 19:55 → S2NX 21:46
PROVIDERS: Nurse Practitioner Primary Care; Registered Nurse General Practice; Student in an Organized Health Care Education/Training Program; Emergency Provider Emergency Medicine; Visit Provider Student in an Organized Health Care Education/Training Program
DX: I13.0 Hypertensive heart and chronic kidney disease with heart failure and stage 1 through stage 4 chronic kidney disease, or unspecified chronic kidney disease (principal); J96.01 Acute respiratory failure with hypoxia; I21.A1 Myocardial infarction type 2; I16.1 Hypertensive emergency; F05 Delirium due to known physiological condition; N17.9 Acute kidney failure, unspecified; I50.20 Unspecified systolic (congestive) heart failure; Z95.5 Presence of coronary angioplasty implant and graft; E78.5 Hyperlipidemia, unspecified; E11.22 Type 2 diabetes mellitus with diabetic chronic kidney disease; Z79.84 Long term (current) use of oral hypoglycemic drugs; N18.32 Chronic kidney disease, stage 3b; I25.2 Old myocardial infarction; I25.10 Atherosclerotic heart disease of native coronary artery without angina pectoris; Z79.82 Long term (current) use of aspirin; D63.1 Anemia in chronic kidney disease; Z91.148 Patient's other noncompliance with medication regimen for other reason; R33.9 Retention of urine, unspecified; I49.3 Ventricular premature depolarization; E87.6 Hypokalemia; Z86.73 Personal history of transient ischemic attack (TIA), and cerebral infarction without residual deficits
CPT/HCPCS: 36415; 71045; 71046; 80053; 80061; 81001; 83036; 83735; 83880; 84100; 84439; 84443; 84484; 85025; 85610; 85730; 87081; 87086; 93005; 93306; 94664; 96374; 97162; 99285; J0360; J1643; J1815; J1940; J2270; J2405; J3475; P9047; A9270; J1644

== ENCOUNTER 2024-09-16 20:23 | Emergency (ER) | payer MEDICARE, MEDICAID, SELFPAY ==
[2024-09-16 20:24] VITALS: BMI 24.2
[2024-09-16 21:18] VITALS: BP 113/71; PULSE 75; RESP 18; TEMP 36.8; O2SAT 97
--- NOTE | 2024-09-16 21:39 | XR_ITS ---
Examination: CT brain head without contrast. 2-D sagittal coronal reconstructions Date and time of exam:September 16, 2024 2152 hrs. Indications: Left eye pain head pain today CTDI: vol (mGy):46.2 DLP: (mGycm):971 Technique: Multiple CT axial sections of the brain have been obtained, 5 mm slice thickness. Contrast has not been administered. 2-D sagittal, coronal reconstructions have been obtained Low dose protocols were performed. One or more of the following dose reduction techniques were used; automated exposure control, adjustment of the mA and/or KV according to patient size, use of iterative reconstruction technique. Findings: No significant ventricular enlargement. Intra-axial or extra-axial hemorrhage density is not seen. No mass effect or midline shift Basal cisterns are not remarkable. Fourth ventricle is midline. Cranial vault intact. Impression: Negative for acute hemorrhage, mass effect or midline shift Consider brain MRI follow-up, pre and postcontrast
--- NOTE | 2024-09-16 21:40 | XR_ITS ---
Examination: CT maxillofacial, without intravenous contrast. 2-D sagittal reconstructions. 3-D reconstructions. Date and time of exam:September 16, 2024 2157 hours Indications: Left-sided facial pain today no trauma CTDI: vol (mGy):23.5 DLP: (mGycm):414 Technique: Multiple axial images of maxillofacial region, 3.0 mm slice thickness. 2-D sagittal and coronal reconstructions. 3-D reconstructions. Low dose protocols were performed. One or more of the following dose reduction techniques were used; automated exposure control, adjustment of the mA and/or KV according to patient size, use of iterative reconstruction technique. Findings: Frontal bone frontal sinuses intact Orbital rims intact The optic globes exhibit symmetry with no retro-orbital mass lesion No cellulitis or facial soft tissue abscess Symmetrical nasopharynx oropharynx Mandible maxilla intact. Impression: No facial fracture No facial mass or abscess Consider elective brain MRI follow-up, pre and postcontrast
--- NOTE | 2024-09-16 21:40 | PD.EDRME ---
Rapid Medical Screening Exam [facility] Arrival date/time: 09/16/24 20:23 64F with history of CVA, CAD/VT w/ defib, and DM presents to ED with 3 days of worsening LOYA, blurry vision, eye pain, and confusion. Patient's family member notes she woke up with a black eye, 2 weeks ago w/o known fall/trauma. Chief Complaint: Eye Problems Vital signs: Vital Signs Temperature 98.2 F 09/16/24 21:18 Pulse Rate 75 09/16/24 21:18 Respiratory Rate 18 09/16/24 21:18 Blood Pressure 113/71 09/16/24 21:18 Pulse Oximetry (%) 97 09/16/24 21:18 Oxygen Delivery Method Room Air 09/16/24 21:18
[2024-09-16 22:02] LABS: Collection Type, Urine Clean Catch
[2024-09-16 22:41] LABS: Bilirubin,Urine Negative (Negative); Blood,Urine Trace (Negative); Clarity,Urine Turbid (Clear/Hazy); Color,Urine Lt-Yellow (Lt Yel-Yel); Glucose, Urine 4+ (Negative); Ketones,Urine Negative (Negative); Leukocyte Esterase,Urine Positive (Negative); Nitrite,Urine Negative (Negative); PH,Urine 6.5 (5.0-7.0); Protein,Urine Negative (Neg - Trace); RBC,Urine 7 /hpf (0-3); Specific Gravity,Urine 1.013 (1.001-1.035); Squamous Epithelial Cell,Urine 12 /hpf (0-5); Urobilinogen,Urine Negative mg/dL (0.0-1.0); WBC,Urine 34 /hpf (0-5)
[2024-09-16 22:44] LABS: Basophils # (Auto) 0.1 Thou/mm3 (0.0-0.2); Basophils % (Auto) 1 % (0-2.5); Eosinophils # (Auto) 0.8 Thou/mm3 (0.0-0.5); Eosinophils % (Auto) 10 % (0-10); Hematocrit 32.9 % (36.0-46.0); Hemoglobin 10.3 g/dL (12.0-16.0); Immature Granulocytes % (Auto) 0 % (0-0); Immature Granulocytes Auto 0.02 Thou/mm3 (0.00-0.00); Lymphocytes # (Auto) 1.9 Thou/mm3 (1.0-4.8); Lymphocytes % (Auto) 24 % (10-50); Mean Corpuscular HGB Conc 31.3 g/dl (31.0-37.0); Mean Corpuscular Hemoglobin 26.1 pg (25.0-35.0); Mean Corpuscular Volume 83 fL (80-100); Monocytes # (Auto) 0.6 Thou/mm3 (0.0-0.8); Monocytes % (Auto) 8 % (0-12); Neutrophils # (Auto) 4.5 Thou/mm3 (1.8-7.7); Neutrophils % (Auto) 57 % (37-80); Nucleated Red Blood Cell % 0 /100 WBC (0); Platelet Count 288 Thou/mm3 (140-440); RDW Standard Deviation 48.1 fL (36.4-46.3); Red Blood Count 3.95 Miln/mm3 (4.00-5.20); White Blood Count 7.9 Thou/mm3 (3.6-11.0)
[2024-09-16 22:53] LABS: Alanine Aminotransferase 11 U/L (10-49); Albumin, Serum 3.7 gm/dL (3.4-4.8); Albumin/Globulin Ratio 1.2 (1.2-2.2); Alkaline Phosphatase 100 U/L (46-116); Anion Gap 8 (7-16); Aspartate Amino Transferase 17 U/L (0-34); BUN/Creatinine Ratio 17 Ratio (12-20); Bilirubin,Total 0.4 mg/dL (0.3-1.2); Blood Urea Nitrogen 20 mg/dL (9-23); Calcium 9.5 mg/dL (8.3-10.6); Calcium (Corrected) 9.7 mg/dL (8.5-10.1); Carbon Dioxide 27.4 mMol/L (20.0-31.0); Chloride 107 mMol/L (98-107); Creatinine (Component) 1.2 mg/dL (0.6-1.3); Estimated Creatinine Clearance 34.7 mL/min (>60); Globulin 3.1 gm/dL (2.3-3.5); Glucose 217 mg/dL (74-106); Osmolality,Calculated 292 (275-295); Potassium 4.1 mMol/L (3.4-5.1); Sodium 142 mMol/L (136-145); Total Protein 6.8 gm/dL (5.7-8.2); Troponin I 0.045 ng/mL (0.0-0.045); eGFR 50 See Note
[2024-09-16 23:02] LABS: Ammonia < 10 uMol/L (11-32)
--- NOTE | 2024-09-17 02:25 | EDNOTE_ITS ---
ED Eye Problem RME/HPI General Chief complaint: Eye Problems Stated complaint: LEFT EYE AND FACE PAIN, SENT FROM CLINIC Time Seen by Provider: 09/16/24 22:50 Arrival date/time: 09/16/24 20:23 RME / HPI RME / HPI Narrative: 09/16/24 20:23 64F with history of CVA, CAD/SD w/ defib, and DM presents to ED with 3 days of worsening LOYA, blurry vision, eye pain, and confusion. Patient's family member notes she woke up with a black eye, 2 weeks ago w/o known fall/trauma. --- Patient is a [place] Islander-speaking 64-year-old female with past medical history of CVA x2 06/2024 with visual deficits, STEMI s/p RCA stent, CHF (EF 30-35% 07/2024), hypertension, hyperlipidemia, CKD stage 3, and type 2 diabetes who presents to the ED on 09/17/2024 sent by PCP due to concern for new stroke. Patient had seen her PCP for a complaint of left eye, left-sided headache, and face pain starting about 3 days ago associated with tear production and pain of the eye. Patient states the pain is intermittent, worst at night. She reports vision change but patient had previous visual defect due to prior stroke and uncertain timing and onset of symptoms. Denies any runny nose with episodes. She also mentioned some temporary right and left upper extremity weakness that occurred 3 weeks ago. Patient is already on aspirin and Brilinta. Patient is a poor historian and not exactly able to describe the episode of weakness. Daughter is present to help provide history. Patient currently lives with daughter. Per daughter patient has had worsening dementia since her strokes 3 months ago and gets confused easily, noncompliant with her meds, has angry outbursts, and has trouble sleeping at night. Patient is additionally complaining of bilateral lower extremity swelling and pain, although per daughter patient is noncompliant with her water pill which she is supposed to take. MD chief complaint: eye pain and eye redness Onset (ago): day(s) Onset description: sudden Duration: intermittent Location: left eye Eye Symptoms: burning, redness, pain and blurry vision Place: home Associated symptoms: headache Related Data Home Medications ?Medication ?Instructions ?Recorded ?Confirmed aspirin 81 mg chewable tablet 81 mg PO QDAY 07/19/24 1 09/19/23 atorvastatin 40 mg tablet 40 mg PO QDAY 07/19/2407/19 isosorbide mononitrate 30 mg 30 mg PO QDAY 07/19/24 tablet,extended release 24 hr ticagrelor 90 mg tablet (Brilinta) 90 mg PO BID 07/19/24 Previous Rx's ?Medication ?Instructions ?Recorded sacubitril 24 mg-valsartan 26 mg 1 tab PO BID #30 tabs 07/24/24 tablet (Entresto) empagliflozin 25 mg tablet 25 mg PO QDAY #30 tabs 07/11 01/01 (Jardiance) furosemide 40 mg tablet (Lasix) 40 mg PO BID #60 tabs 07/25/24 miscellaneous medical supply #1 ea 07/25/24 (Blood Pressure Cuff) potassium chloride 20 mEq oral 20 meq PO QDAY #30 ea 1 09/25/23 packet Allergies Allergy/AdvReac Type Severity Reaction Status Date / Time No Known Allergies Allergy Verified 07/19/24 13:04 Past Medical History Past Medical History Comments PMH COMMENT: Past Medical History: CVA x2 06/2024 with visual deficits, STEMI s/p RCA stent, CHF (EF 30-35% 07/2024), hypertension, hyperlipidemia, CKD stage 3, and type 2 diabetes Family History: Notable for diabetes in son Surgical History: Cardiac RCA stent placement 06/25/2024 Dr. Ritter Social History: Denies history of smoking, denies current alcohol use, denies recreational drug use Current Medications: Patient unsure of current medications, states takes something for high blood pressure, cholesterol, blood thinner, and water pill. Allergies: No known drug allergies ED Exam Narrative Physical exam: Physical Exam General: Awake and in mild distress. Conversational and non-toxic appearing. HEENT: Normocephalic, atraumatic, mucous membranes moist. Left eye with mildly red conjunctiva but no purulence or discharge. Pain upon palpation of the left temporal area. Heart: Regular rate and rhythm, no murmurs. Lungs: Clear to auscultation with no wheezing or crackles. Abdomen: Soft, nondistended, nontender, positive bowel sounds. ?No guarding or rebound tenderness. Neurologic: Alert and oriented x3, patient able to move all 4 extremities. Right-sided homonymous hemianopsia. Extremities: No edema. Skin: No rash or ecchymoses. Course Quality Measures none Orders Category Date Time Status CT facial bones wo con Stat Exams 09/16/24 21:[address] head/brain wo con Stat Exams 09/16/24 21:39 Completed Ammonia Stat Lab 09/16/24 22:28 Completed CBC Stat Lab 09/16/24 22:28 Completed CRP [C-Reactive Protein] Stat Lab 09/17/24 02:45 Completed Comprehensive Metabolic Panel Stat Lab 09/16/24 22:28 Completed ESR [Sed Rate (ESR)] Stat Lab 09/17/24 02:45 Completed Troponin I Stat Lab 09/16/24 22:28 Completed Urinalysis Stat Lab 09/16/24 21:52 Completed Vital Signs Vital signs: Vital Signs Temperature 98.2 F 09/16/24 21:18 Pulse Rate 75 09/16/24 21:18 Respiratory Rate 18 09/16/24 21:18 Blood Pressure 113/71 09/16/24 21:18 Pulse Oximetry (%) 97 09/16/24 21:18 Oxygen Delivery Method Room Air 09/16/24 21:18 Eye MDM Narrative MDM Narrative:: At this point the patient's history does not seem to suggest an acute stroke as there has not been a change in the patient's symptoms for at least 3 days, when she reports the left eye pain, left-sided headache, and tearing started. Regardless, CT head was ordered to rule out a sub-acute stroke which does not show anything and CT face was ordered to rule out any sort of abscess or tumor cause. An MRI of the brain can be followed up electively to assess for subacute strokes that are not detectable on the CT. Patient and daughter was counseled to return to PCP and bring findings. ESR and CRP were ordered to rule out temporal arteritis, which can cause acute visual change and is associated with temporal pain. Both tests came back in normal range, making this diagnosis much less likely. The patient's symptoms are most congruent with a cluster headache, with unilateral intermittent headache and tearing and pain of the eye. Triptans may be an option for abortive therapy, but are typically contraindicated in ischemic heart disease, which the patient has. Verapamil also appears to be used in prophylaxis. Patient will be advised to go to her primary if the headaches persist to weigh the options for headache management. Patient data External records reviewed:: [facility] previous records Clinical information provided by:: patient and family Social determinants that could affect healthcare access:: other (specify) Patient has the following chronic illnesses:: As above How is presenting disease/condition affected by chronic disease/condition?: exacerbated by Evaluation data The following diagnostics were reviewed and interpreted by me:: lab results and radiology exam(s) Lab and/or radiology exams considered but not ordered:: MRI brain (to be completed outpatient) Interpretation Summary: CT head and CT face normal without acute findings, per my interpretation. Labs including CBC and CMP as well as ESR, CRP which were ordered to rule out temporal arteritis, are negative. UA shows some WBCs and positive leukocyte esterase but no bacteria and contaminated squamous cells. Medications / Prescriptions Medications or Prescriptions considered but not ordered:: Triptans (abortive headache) Verapamil (prevent headache) Medication administrations:: None Consultations Consultation(s) initiated? (list below): No Diagnosis Eye Problem Differential Diagnosis: other Most likely diagnosis given after review of the tests above:: Cluster headache Admission Indicated Admission indicated?: not indicated Explain why admission is indicated or not indicated:: Patient does not have acute stroke, can follow up outpatient for headache and eye symptoms if recurrent. Admission Request Was there a request for admission?: No Disposition Plan Disposition Plan: Discharge Discharge Attestation Discharge Attestation: The patient and all family members were given an opportunity to ask questions and understood the discharge instructions. Discharge instructions specifically effects, indications for sooner follow up or return to the emergency department, and the expected course of current diagnosis. Patient condition: Stable Discharge Plan Plan Patient Disposition: HOME (Self Care) Patient condition on transfer: Stable Prescriptions/Referrals Prescriptions/Med Rec: No Action atorvastatin 40 mg Tablet 40 mg PO QDAY isosorbide mononitrate 30 mg Tablet Extended Release 24 Hr 30 mg PO QDAY aspirin 81 mg Tablet,Chewable 81 mg PO QDAY Brilinta 90 mg Tablet 90 mg PO BID sacubitril-valsartan [Entresto] 24-26 mg tablet 1 tab PO BID Qty: 30 0RF Rx Instructions: Hold if SBP drops below 100 and DBP below 60 (DME) Blood Pressure Cuff Misc See Rx Instructions .Route Qty: 1 0RF Rx Instructions: As directed furosemide [Lasix] 40 mg tablet 40 mg PO BID Qty: 60 0RF potassium chloride 20 mEq packet 20 meq PO QDAY Qty: 30 1RF Jardiance 25 mg tablet 25 mg PO QDAY Qty: 30 0RF Referrals: Corbin Alonso PA-C [Primary Care Provider] - In 1 week Problem List Clinical Impression: Cluster headache, Edema of both lower legs Patient/Caregiver Discharge Instructions Discharge Activity: activity as tolerated and resume usual activities Education Materials: Migraines and Cluster Headaches, Self-Care for Headaches, ED Headache, Cluster Additional Instructions: Today in the ED, [place] got CT scans of the head and face, both of which were normal. There was not any sign of stroke. We also checked labs including a CBC (complete blood count) and CMP (complete metabolic panel) which turned out normal. Labs for inflammatory markers called ESR (erythrocyte sedimentation rate) and CRP (C-reactive protein) were checked and also normal, to rule out an autoimmune condition like temporal arteritis. Please follow up with your primary doctor if you keep having recurring headaches. You may be having what is called a cluster headache. Your doctor can consider whether it is safe to start you on a medication to prevent these headaches. -- Hoy en el servicio de urgencias, le hicieron a Mar?a cheryl tomograf?a computarizada de la dwight y la michael, ambas normales. No hab?a cori?n signo de accidente cerebrovascular. Tambi?n hicimos an?lisis de laboratorio, incluido un hemograma completo y un panel metab?jagdeep completo, que resultaron normales. Se hicieron an?lisis de laboratorio para los marcadores inflamatorios llamados VSG (velocidad de sedimentaci?n globular) y PCR (prote?na C reactiva), que tambi?n resultaron normales, para descartar cheryl enfermedad autoinmune oneida la arteritis temporal. Si sigue teniendo candido de dwight recurrentes, consulte con greco m?dico de cabecera. Es posible que tenga lo que se denomina cefalea en racimos. Greco m?dico puede considerar si es seguro comenzar a administrarle un medicamento para prevenir estos candido de dwight. Print Language: [place] Stand Alone Forms: Mitzi Award Info., Patient Portal Info Letter
[2024-09-17 02:29] VITALS: BP 124/71; PULSE 71; RESP 16; TEMP 37; O2SAT 96
--- NOTE | 2024-09-17 03:40 | PC.NURSE ---
Initial contact with pt. Refused visual acuity.
[2024-09-17 03:51] VITALS: BP 125/77; PULSE 76; RESP 18; O2SAT 97
[2024-09-17 04:04] LABS: C-Reactive Protein < 0.4 mg/dL (0.0-0.9)
[2024-09-17 04:29] LABS: Sed Rate (ESR) 17 mm/hr (0-30)
[2024-09-17 04:57] VITALS: BP 150/72; PULSE 78; RESP 16; TEMP 36.7; O2SAT 95
== END 2024-09-17 04:58 | disposition home or self-care (01) ==
PROVIDERS: Physician Assistant; Student in an Organized Health Care Education/Training Program; Emergency Provider Emergency Medicine; PCP Family Medicine
DX: G44.009 Cluster headache syndrome, unspecified, not intractable (principal); R60.0 Localized edema; I13.0 Hypertensive heart and chronic kidney disease with heart failure and stage 1 through stage 4 chronic kidney disease, or unspecified chronic kidney disease; I50.9 Heart failure, unspecified; N18.30 Chronic kidney disease, stage 3 unspecified; E11.22 Type 2 diabetes mellitus with diabetic chronic kidney disease; I25.10 Atherosclerotic heart disease of native coronary artery without angina pectoris; I25.2 Old myocardial infarction; E78.5 Hyperlipidemia, unspecified; I69.398 Other sequelae of cerebral infarction; H53.8 Other visual disturbances; Z95.810 Presence of automatic (implantable) cardiac defibrillator; Z95.5 Presence of coronary angioplasty implant and graft; Z91.148 Patient's other noncompliance with medication regimen for other reason; Z79.82 Long term (current) use of aspirin; Z79.02 Long term (current) use of antithrombotics/antiplatelets
CPT/HCPCS: 36415; 70450; 70486; 80053; 81001; 82140; 84484; 85025; 85652; 86140; 99284

== ENCOUNTER 2024-10-28 15:26 | Emergency (ER) | payer MEDICARE, OTHER, SELFPAY ==
[2024-10-28 15:51] VITALS: BP 150/86; PULSE 71; PULSE 72; RESP 20; TEMP 36.8; O2SAT 99
--- NOTE | 2024-10-28 16:03 | PD.EDCHEST ---
ED Chest Pain RME/HPI General Chief Complaint: Chest Pain Stated Complaint: CHEST PAIN Time Seen by Provider: 10/28/24 16:04 Arrival date/time: 10/28/24 15:26 RME / HPI RME / HPI narrative: DR. SONI MAIN ED EVALUATION: 64 year old female with past medical history significant for dementia, CVA x2 06/2024 with visual deficits, STEMI s/p RCA stent, CHF (EF 30-35% 07/2024), hypertension, hyperlipidemia, CKD stage 3, and type 2 diabetes presents to the Emergency Department [facility] with complaint of chest pain onset 1500 hours today, mainly left side. Pain is described as pressure and rated moderate in severity. Patient states she was folding clothes when the pain began. She states that pressing on it and breathing exacerbates the pain. She also mentioned she has a headache and photophobia onset 4 months and has not seen a provider for this. She states she has had right eye cataracts. Patient denies any cough, congestion, sore throat, nausea, vomiting, fevers, chills, or any other symptoms at this time. She is a poor historian and denies primary care doctor and states last time she saw a doctor was when she was hospitalized at [facility] 6 months ago. She does not remember why she was admitted. Looking into her records she was seen here 09/17/24 and discharged for a cluster headache. She also has prescribed medications from [facility] and [facility]. She is also on a blood thinner but she does not know why she takes it. Related Data Home Medications ?Medication ?Instructions ?Recorded ?Confirmed aspirin 81 mg chewable tablet 81 mg PO QDAY 07/19/24 07/19/24 atorvastatin 40 mg tablet 40 mg PO QDAY 07/19/24 07/19/24 isosorbide mononitrate 30 mg 30 mg PO QDAY 07/19/24 07/19/24 tablet,extended release 24 hr ticagrelor 90 mg tablet (Brilinta) 90 mg PO BID 07/19/24 07/19/24 Previous Rx's ?Medication ?Instructions ?Recorded sacubitril 24 mg-valsartan 26 mg 1 tab PO BID #30 tabs 07/24/24 tablet (Entresto) empagliflozin 25 mg tablet 25 mg PO QDAY #30 tabs 07/25/24 (Jardiance) furosemide 40 mg tablet (Lasix) 40 mg PO BID #60 tabs 07/25/24 miscellaneous medical supply #1 ea 07/25/24 (Blood Pressure Cuff) potassium chloride 20 mEq oral 20 meq PO QDAY #30 ea 07/25/24 packet Allergies Allergy/AdvReac Type Severity Reaction Status Date / Time No Known Allergies Allergy Verified 10/28/24 15:56 Review of Systems Review of Systems Systems Reviewed: All systems reviewed, normal except as documented Past Medical History Past Medical History NEUROLOGIC: Positive Cerebrovascular Accident (per family forgetful; no deficits) CARDIAC: Positive Myocardial Infarction (2023), Congestive Heart Failure and Hypertension RESPIRATORY: Negative Chronic Obstructive Pulmonary Disease (COPD) GENITOURINARY: Negative Renal Disease ENDOCRINE: Positive Diabetes Mellitus Type 2; Negative Diabetes Mellitus Type 1 Social History SMOKING STATUS: Never smoker SUBSTANCE USE: does not use ALCOHOL: Never ED Exam Narrative Physical exam: GENERAL APPEARANCE: Generally well-appearing, no acute distress, she does not maintain eye contact. Nontoxic. HEENT: NC, AT. MMM. EOMI, clear conjunctiva, oropharynx clear. NECK: Supple without lymphadenopathy. No stiffness or restricted ROM. HEART: Normal rate and regular rhythm, normal S1/S1, no m/r/g LUNGS: CTAB, moving air well. No crackles or wheezes are heard. ABDOMEN: Soft, nontender, nondistended with good bowel sounds heard. BACK: No midline C/T/L spine pain or deformity, No CVAT, no obvious deformity. EXTREMITIES: Without cyanosis, clubbing or edema. MUSCULOSKELETAL: FROM of all major joints, no chest tenderness NEUROLOGICAL: Grossly nonfocal. Alert and oriented, moving all 4 extremities. CN not formally tested but appear grossly intact. Observed to ambulate with normal gait. Skin: Warm and dry without any rash. Course Quality Measures none Orders Category Date Time Status EKG (ED ONLY) *Do not use* NOW Care 10/28/24 16:15 Completed EKG (ED Only) Stat Exams 10/28/24 16:15 Ordered XR chest 1V Stat Exams 10/28/24 16:15 Completed CBC Stat Lab 10/28/24 16:26 Completed CMP [Comprehensive Metabolic Panel] Stat Lab 10/28/24 16:26 Completed Troponin I Stat Lab 10/28/24 16:26 Completed Troponin I Stat Lab 10/28/24 18:49 Completed Acetaminophen Tab [Tylenol Tab] Med 10/28/24 16:15 Discontinued 650 mg PO X1 ONE Vital Signs Vital signs: Vital Signs Temperature 98.2 F 10/28/24 15:51 Pulse Rate 71 10/28/24 15:51 Respiratory Rate 20 10/28/24 15:51 Blood Pressure 150/86 H 10/28/24 15:51 Pulse Oximetry (%) 99 10/28/24 15:51 Oxygen Delivery Method Room Air 10/28/24 15:51 Chest Pain MDM Narrative MDM Narrative:: Sherice Contreras am scribing for and in the presence of Dr. Soni. Patient data External records reviewed:: [facility] previous records (Reviewed last ED visit dated 09/17/24 , discharged with the following: Cluster headache) Clinical information provided by:: patient Social determinants that could affect healthcare access:: none Patient has the following chronic illnesses:: Dementia, CVA x2 06/2024 with visual deficits, STEMI s/p RCA stent, CHF (EF 30-35% 07/2024), hypertension, hyperlipidemia, CKD stage 3, and type 2 diabetes. How is presenting disease/condition affected by chronic disease/condition?: exacerbated by Evaluation data The following diagnostics were reviewed and interpreted by me:: lab results and radiology exam(s) Lab and/or radiology exams considered but not ordered:: none Interpretation Summary: Procedure(s): XR chest 1V Accession Number(s): [id number] cc: Remy Soni MD; Rory Alford MD; NO PRIMARY/FAMILY,PHYSICIAN~ Examination: AP chest single view TECHNIQUE: AP portable semiupright chest single view Exam date and time: October 28, 2024 1558 hours Comparison July 21, 2024 INDICATIONS: Chest pain today. FINDINGS: [id number] CHF, cardiomegaly with prominent vascular congestion and perihilar edema Pneumonia right base obscuring detail right hemidiaphragm IMPRESSION: [id number] CHF Right base pneumonia Dictated By: Rory Alford MD Medications / Prescriptions Medications or Prescriptions considered but not ordered:: none Medication administrations:: Medication Administration History Discontinued Medications Acetaminophen (Acetaminophen 325 Mg Tablet) 650 mg PO X1 ONE Stop: 10/28/24 16:16 Last Admin: 10/28/24 16:53 Dose: 650 mg Documented By: TM see above Consultations Consultation(s) initiated? (list below): No Diagnosis Chest Pain Differential Diagnosis: atypical chest pain, st elevation myocardial infarction, costochondritis, chest pain and biliary colic Most likely diagnosis given after review of the tests above:: Chest pain Admission Indicated Admission indicated?: not indicated Admission Request Was there a request for admission?: No Disposition Plan Disposition Plan: Discharge Discharge Attestation Discharge Attestation: The patient and all family members were given an opportunity to ask questions and understood the discharge instructions. Discharge instructions specifically effects, indications for sooner follow up or return to the emergency department, and the expected course of current diagnosis. Patient condition: Stable Discharge Plan Plan Patient Disposition: HOME (Self Care) Prescriptions/Referrals Prescriptions/Med Rec: No Action atorvastatin 40 mg Tablet 40 mg PO QDAY isosorbide mononitrate 30 mg Tablet Extended Release 24 Hr 30 mg PO QDAY aspirin 81 mg Tablet,Chewable 81 mg PO QDAY Brilinta 90 mg Tablet 90 mg PO BID sacubitril-valsartan [Entresto] 24-26 mg tablet 1 tab PO BID Qty: 30 0RF Rx Instructions: Hold if SBP drops below 100 and DBP below 60 (DME) Blood Pressure Cuff Misc See Rx Instructions .Route Qty: 1 0RF Rx Instructions: As directed furosemide [Lasix] 40 mg tablet 40 mg PO BID Qty: 60 0RF potassium chloride 20 mEq packet 20 meq PO QDAY Qty: 30 1RF Jardiance 25 mg tablet 25 mg PO QDAY Qty: 30 0RF Referrals: No Primary/Family,Physician [Primary Care Provider] - In 1 week Problem List Clinical Impression: Chest pain Patient/Caregiver Discharge Instructions Education Materials: ED Chest Pain, Uncertain Cause Additional Instructions: Acuda a cheryl consulta de seguimiento con sanders m?dico de cabecera en 2 o 3 d?as para cheryl nueva evaluaci?n. Puede regresar a urgencias antes si los s?ntomas empeoran o si nota alg?n problema nuevo o preocupante. Print Language: English Stand Alone Forms: Mitzi Award Info., Patient Portal Info Letter
--- NOTE | 2024-10-28 16:15 | XR_ITS ---
Examination: AP chest single view TECHNIQUE: AP portable semiupright chest single view Exam date and time: October 28, 2024 1558 hours Comparison July 21, 2024 INDICATIONS: Chest pain today. FINDINGS: [id number] CHF, cardiomegaly with prominent vascular congestion and perihilar edema Pneumonia right base obscuring detail right hemidiaphragm IMPRESSION: [id number] CHF Right base pneumonia
--- NOTE | 2024-10-28 16:15 | PC.NURSE ---
PT CITLALI FROM HOME, REPORTS SHE BEGAN HAVING LEFT SIDED CHEST PAIN THAT FEELS LIKE A PRESSURE. FAMILY IS SUPPOSED TO COME IN PER EMS PT HAS DEMENTIA AND FAMILY CAN PROVIDE MORE INFORMATION. PT ALERT TO SELF AND PLACE ONLY AT THIS TIME.
[2024-10-28 16:42] LABS: Basophils % (Auto) 0 % (0-2.5); Eosinophils # (Auto) 0.6 Thou/mm3 (0.0-0.5); Eosinophils % (Auto) 10 % (0-10); Hemoglobin 10.3 g/dL (12.0-16.0); Immature Granulocytes % (Auto) 0 % (0-0); Immature Granulocytes Auto 0.01 Thou/mm3 (0.00-0.00); Lymphocytes # (Auto) 1.6 Thou/mm3 (1.0-4.8); Lymphocytes % (Auto) 24 % (10-50); Mean Corpuscular HGB Conc 32.2 g/dl (31.0-37.0); Mean Corpuscular Hemoglobin 26.3 pg (25.0-35.0); Mean Corpuscular Volume 82 fL (80-100); Monocytes # (Auto) 0.5 Thou/mm3 (0.0-0.8); Monocytes % (Auto) 8 % (0-12); Neutrophils # (Auto) 3.8 Thou/mm3 (1.8-7.7); Neutrophils % (Auto) 58 % (37-80); Nucleated Red Blood Cell % 0 /100 WBC (0); Platelet Count 256 Thou/mm3 (140-440); RDW Standard Deviation 47.9 fL (36.4-46.3); Red Blood Count 3.91 Miln/mm3 (4.00-5.20); White Blood Count 6.6 Thou/mm3 (3.6-11.0)
[2024-10-28] MEDS: ACETAMINOPHEN 325 MG TABLET 650 MG PO (16:53)
[2024-10-28 17:02] LABS: Alanine Aminotransferase 14 U/L (10-49); Albumin, Serum 3.7 gm/dL (3.4-4.8); Albumin/Globulin Ratio 1.2 (1.2-2.2); Alkaline Phosphatase 96 U/L (46-116); Anion Gap 11 (7-16); Aspartate Amino Transferase 18 U/L (0-34); BUN/Creatinine Ratio 18 Ratio (12-20); Bilirubin,Total 0.5 mg/dL (0.3-1.2); Blood Urea Nitrogen 22 mg/dL (9-23); Calcium 9.3 mg/dL (8.3-10.6); Calcium (Corrected) 9.5 mg/dL (8.5-10.1); Carbon Dioxide 26.5 mMol/L (20.0-31.0); Chloride 101 mMol/L (98-107); Creatinine (Component) 1.2 mg/dL (0.6-1.3); Glucose 163 mg/dL (74-106); Osmolality,Calculated 282 (275-295); Potassium 4.4 mMol/L (3.4-5.1); Sodium 138 mMol/L (136-145); Total Protein 6.7 gm/dL (5.7-8.2); Troponin I 0.028 ng/mL (0.0-0.045); eGFR 50 See Note
[2024-10-28 17:23] VITALS: BP 150/83; PULSE 66; RESP 24; TEMP 36.6; O2SAT 98
[2024-10-28 19:19] LABS: Troponin I 0.035 ng/mL (0.0-0.045)
[2024-10-28 19:33] VITALS: BP 154/80; PULSE 68; RESP 20; TEMP 36.6; O2SAT 99
== END 2024-10-28 20:14 | disposition home or self-care (01) ==
PROVIDERS: Emergency Provider Emergency Medicine
DX: I13.0 Hypertensive heart and chronic kidney disease with heart failure and stage 1 through stage 4 chronic kidney disease, or unspecified chronic kidney disease (principal); I50.9 Heart failure, unspecified; J18.9 Pneumonia, unspecified organism; I25.2 Old myocardial infarction; Z95.5 Presence of coronary angioplasty implant and graft; E11.22 Type 2 diabetes mellitus with diabetic chronic kidney disease; N18.30 Chronic kidney disease, stage 3 unspecified; Z86.73 Personal history of transient ischemic attack (TIA), and cerebral infarction without residual deficits; Z79.02 Long term (current) use of antithrombotics/antiplatelets
CPT/HCPCS: 36415; 71045; 80053; 84484; 85025; 93005; 99283; A9270